=== PATIENT | male | born 1955 | race Caucasian/White ===

== ENCOUNTER 2019-12-14 11:11 | Emergency (ER) | payer MEDICARE, OTHER, SELFPAY ==
--- NOTE | ~2019-12-14 | XR_ITS ---
EXAMINATION: XR foot LT min 3V DATE: 12/14/2019 11:48 INDICATION: Pain, swelling and bruising at the left forefoot post fall down stairs TECHNIQUE: Dorsoplantar, two oblique and lateral views of the left foot were obtained. COMPARISON: None. FINDINGS: Minimally displaced oblique intra-articular fracture at the medial base of the left fifth proximal ph alanx. Alignment remains near-anatomic with no significant fracture gap or incongruity at the articul ar surface. No other fractures identified. Joint spaces are normal. IMPRESSION: 1. Mildly displaced intra-articular fracture at the base of the left fifth proximal phalanx. Reviewed, dictated and finalized at location A. IMPRESSION: 1. Mildly displaced intra-articular fracture at the base of the left fifth prox imal phalanx.
--- NOTE | ~2019-12-14 | XR_ITS ---
EXAMINATION: XR finger 5th LT min 2V DATE: 12/14/2019 12:30 INDICATION: Pain at the fifth proximal interphalangeal joint post injury TECHNIQUE: Dorsal palmar, lateral and 2 oblique views of the left fifth digit were obtained COMPARISON: None FINDINGS: Chronic nonunited and nondisplaced ulnar styloid avulsion fracture. Old healed fracture deformity at the visualized portion of the distal left radius. Likely secondary mild ulnar positive variance. Alig nment is otherwise normal. No acute fracture. Mild polyarticular osteoarthritis at the wrist and fift h proximal and distal interphalangeal joints. Soft tissues are unremarkable. IMPRESSION: 1. No acute osseous abnormality. Reviewed, dictated and finalized at location A.
[2019-12-14 11:12] VITALS: BP 143/75; PULSE 70; RESP 14; TEMP 37.1; O2SAT 97
--- NOTE | 2019-12-14 12:39 | ED.LOWEXIN ---
HPI - Extremity Injury (Lower) General Chief Complaint: Extremity Injury, Lower <Rima Wilkes PA-C - Last Filed: 12/14/19 13:13> Stated Complaint: left foot injury <BIRGIT Cox Last Filed: 12/14/19 13:13> Time Seen by Provider: 12/14/19 11:56 <Rima Wilkes PA-C - Last Filed: 12/14/19 13:13> Source: patient <BIRGIT Cox Last Filed: 12/14/19 13:13> Mode of arrival: ambulatory <BIRGIT Cox Last Filed: 12/14/19 13:13> Limitations: no limitations <BIRGIT Cox Last Filed: 12/14/19 13:13> History of Present Illness HPI Narrative: This is a 64-year-old male that presents to the emergency department after a fall down steps 2 days ago. Reports he tripped and fell down about 5 steps. Reports he did hit his head, denies any loss of consciousness. Reports since he has had pain in the left foot. Also reports pain in the left fifth finger. Denies vision changes, vomiting, numbness, or weakness. <Rima Wilkes PA-C - Last Filed: 12/14/19 13:13> Related Data Home Medications: Home Medications Medication Instructions Recorded Confirmed albuterol sulfate 2.5 mg INHALATION Q4-6H PRN 04/04/19 07/01/19 albuterol sulfate 90 mcg/actuation 2 puff INHALATION Q4H PRN gm 04/04/19 07/01/19 aerosol inhaler diltiazem HCl 240 mg capsule,24 240 mg PO DAILY 04/04/19 07/01/19 hr,extended release flecainide 100 mg tablet 100 mg PO Q12H 04/04/19 07/01/19 rivaroxaban 20 mg tablet 20 mg PO DAILY 04/04/19 07/01/19 <BIRGIT Cox Last Filed: 12/14/19 13:13> Allergies/Adverse Reactions: Allergies Allergy/AdvReac Type Severity Reaction Status Date / Time Penicillins Allergy Unknown Unknown Verified 12/14/19 11:33 phenytoin Allergy Unknown Unknown Verified 12/14/19 11:33 HYDROMORPHONE HCL Allergy Intermediate HIVES, Uncoded 12/14/19 11:33 ITCHING, SWELLING HORSERADISH Allergy Mild Unknown Uncoded 12/14/19 11:33 <Rima Wilkes PA-C - Last Filed: 12/14/19 13:13> Review of Systems Review of Systems: Narrative: CONSTITUTIONAL: Denies fever EYES: Denies visual changes GASTROINTESTINAL: Denies vomiting MUSCULOSKELETAL: Reports joint pain and myalgia. Denies back pain NEUROLOGIC: Denies headache, numbness, or weakness. <Rima Wilkes PA-C - Last Filed: 12/14/19 13:13> All systems reviewed & are unremarkable except as noted in HPI and below <Rima Wilkes PA-C - Last Filed: 12/14/19 13:13> [facility] Social History Social History: Social History Smoking packs per day: 1 Smoking cigarettes per day: 20.0 Smoking status: Current every day smoker Smoking end date: 04/17/98 Alcohol intake: never Gender identity (if verbalized by the patient): Male <Rima Wilkes PA-C - Last Filed: 12/14/19 13:13> Exam Narrative: Exam Narrative: GENERAL: Well-appearing, well-nourished, and in no acute distress. HEAD: Normocephalic, atraumatic. EYES: PERRLA and EOMI. ENT: Nares clear, no rhinorrhea or epistaxis. Mucous membranes moist. Oropharynx without tonsillar hypertrophy exudate or other lesions. Bilateral TMs pearly alfaro non-bulging NECK: Supple. No adenopathy or masses. No midline cervical spine tenderness CHEST: Clear to auscultation. No respiratory distress. No wheezes rales or rhonchi HEART: Regular rate and rhythm. No murmur heard. Normal peripheral pulses. BACK: No midline thoracic or lumbar spine tenderness EXTREMITIES: Normal range of motion. No obvious deformity. Mild edema to the left foot dorsal surface with mild bruising. Strength equal in bilateral upper extremities (5/5) SKIN: Warm, dry, no rash. NEURO: No focal deficits. Alert and oriented x3. Cranial nerves II through XII grossly intact PSYCH: Normal mood and affect <Rima Wilkes PA-C - Last Filed: 12/14/19 13:13> Course Vital Signs Vital signs: Vital Signs Temp
[2019-12-14 13:20] VITALS: BP 140/88; PULSE 68; RESP 20; O2SAT 100
== END 2019-12-14 13:22 | disposition home or self-care (01) ==
PROVIDERS: Emergency Provider Emergency Medicine; PCP Family Medicine
DX: S92.512A Displaced fracture of proximal phalanx of left lesser toe(s), initial encounter for closed fracture (principal); S09.90XA Unspecified injury of head, initial encounter; Z87.891 Personal history of nicotine dependence; I48.91 Unspecified atrial fibrillation; Z79.01 Long term (current) use of anticoagulants; Z86.73 Personal history of transient ischemic attack (TIA), and cerebral infarction without residual deficits; W10.9XXA Fall (on) (from) unspecified stairs and steps, initial encounter
CPT/HCPCS: 73140; 73630; 99284

== ENCOUNTER 2020-09-28 10:46 | Outpatient (CLI) | payer MEDICARE, OTHER, SELFPAY ==
--- NOTE | ~2020-09-28 | XR_ITS ---
XR lumbar spine 2-3V DATE: 09/28/2020 11:09 INDICATION: Low back pain. No recent injury. History of L1 fracture in 1990 TECHNIQUE: AP, lateral, coned lateral lumbosacral views COMPARISON: 09/03/2009 CT abdomen pelvis FINDINGS: There is mild levoscoliosis of the lumbar spine. Moderate anterior wedge compression fracture deformity of L1, chronic. Severe degenerative disc disease at L4-5, especially on the right. No recent fracture is evident. No spondylolisthesis. The lumbar pedicles are intact. The sacroiliac joints appear normal. Status post cholecystectomy IMPRESSION: Old compression fracture deformity of L1 Severe degenerative disc disease at L4-5 Reviewed, dictated and finalized at location A.
== END 2020-09-28 10:47 | disposition home or self-care (01) ==
PROVIDERS: PCP Family Medicine; Visit Provider Nurse Practitioner Family
DX: M54.5 Low back pain (principal); Z90.49 Acquired absence of other specified parts of digestive tract; M51.36 Other intervertebral disc degeneration, lumbar region
CPT/HCPCS: 72100

== ENCOUNTER 2020-10-02 13:57 | Outpatient (CLI) | payer MEDICARE, OTHER, SELFPAY ==
--- NOTE | ~2020-10-02 | XR_ITS ---
XR elbow RT min 3V DATE: 10/02/2020 14:18 INDICATION: Pain, swelling and posterior erythema since last night TECHNIQUE: 4 views COMPARISON: None FINDINGS: No fracture or dislocation or elbow joint effusion. No periosteal reaction or bone destruct ion. There is dorsal soft tissue swelling of the elbow, possibly due to olecranon bursitis. IMPRESSION: Dorsal soft tissue swelling, possibly due to olecranon bursitis Reviewed, dictated and finalized at location A.
== END 2020-10-02 13:58 | disposition home or self-care (01) ==
PROVIDERS: PCP Family Medicine; Visit Provider Nurse Practitioner Family
DX: M25.521 Pain in right elbow (principal); M79.89 Other specified soft tissue disorders
CPT/HCPCS: 73080

== ENCOUNTER 2020-10-20 15:20 | Outpatient (CLI) | payer MEDICARE, OTHER, SELFPAY ==
--- NOTE | ~2020-10-20 | MR_ITS ---
EXAMINATION: MR lumbar spine wo con DATE: 10/20/2020 16:47 INDICATION: Low back pain. TECHNIQUE: Magnetic resonance imaging (MRI) of the lumbar spine was performed without intravenous con trast. Sequences included sagittal T2-weighted FSE, sagittal T2-weighted FS FSE, sagittal T1-weighted FSE, and axial T2-weighted FSE. COMPARISON: Lumbar spine radiograph 09/28/2020, chest 2 views 04/04/2019 FINDINGS: There is 10 degrees levoscoliosis of lumbar spine. There are hypoplastic ribs at L1. There is a chronic compression fracture of L1 with 3/5 loss of height. There is severely decreased disc hei ght at L4-L5 with endplate remodeling. The distal spinal cord signal intensity is normal. The conus m edullaris is at L2-L3. The following disc levels are specifically discussed: L1-L2: The disc does not extend beyond the endplate margin. There is mild bilateral facet joint osteo arthritis. There is no neural foraminal stenosis. There is no central canal stenosis. L2-L3: The disc is mildly bulging. There is mild bilateral facet joint osteoarthritis. There is mild bilateral neural foraminal stenosis. There is no central canal stenosis. L3-L4: The disc does not extend beyond the endplate margin. There is mild right and moderate left fac et joint osteoarthritis. There is no neural foraminal stenosis. There is no central canal stenosis. L4-L5: The disc is bulging and has an annular fissure. There is severe right and moderate left facet joint osteoarthritis. There is moderate right and mild left neural foraminal stenosis. There is mild central canal stenosis. L5-S1: The disc is bulging. There is moderate bilateral facet joint osteoarthritis. There is mild lef t neural foraminal stenosis. There is no central canal stenosis. IMPRESSION: 1. Severe lumbar spondylosis. 2. Lumbar levoscoliosis. Reviewed, dictated and finalized at location A.
== END 2020-10-20 15:21 | disposition home or self-care (01) ==
PROVIDERS: PCP Family Medicine; Visit Provider Nurse Practitioner Family
DX: M51.16 Intervertebral disc disorders with radiculopathy, lumbar region (principal); Z87.81 Personal history of (healed) traumatic fracture; M47.896 Other spondylosis, lumbar region
CPT/HCPCS: 72148

== ENCOUNTER 2021-05-27 22:19 | Emergency (ER) | payer MEDICARE, OTHER, SELFPAY ==
--- NOTE | ~2021-05-27 | XR_ITS ---
EXAMINATION: XR shoulder LT min 2V DATE: 05/27/2021 23:09 INDICATION: Left shoulder pain. Fall. TECHNIQUE: 2 views of left shoulder were obtained. COMPARISON: None. FINDINGS: Bone alignment is normal. No fracture. The glenohumeral joint is not well profiled. There i s severe acromioclavicular joint osteoarthritis. IMPRESSION: 1. Severe left acromioclavicular joint osteoarthritis. Reviewed, dictated and finalized at location E. RT EXPORT CLERK
--- NOTE | ~2021-05-27 | XR_ITS ---
EXAMINATION: XR humerus LT DATE: 05/27/2021 23:09 INDICATION: Left upper arm pain. TECHNIQUE: A single view of left humerus on 2 radiographs were obtained. COMPARISON: Chest CT 05/27/2021 FINDINGS: Bone alignment is normal. No fracture. IMPRESSION: 1. No fracture. Reviewed, dictated and finalized at location E. ERONE IMPRESSION: 1. No fracture.
--- NOTE | ~2021-05-27 | XR_ITS ---
EXAMINATION: XR chest 1V portable DATE: 05/27/2021 22:44 INDICATION: Shortness of breath. TECHNIQUE: A single frontal view of the chest was obtained on 2 radiographs. COMPARISON: Chest 2 views 04/04/2019, CT abdomen and pelvis 07/15/2010 FINDINGS: There are lucencies in the lungs, consistent with emphysema. There is mild atelectasis at t he lung bases. No pleural effusion or pneumothorax. The heart size is normal. IMPRESSION: 1. Emphysema. 2. Mild atelectasis at the lung bases. Reviewed, dictated and finalized at location E. NICAL AID
--- NOTE | ~2021-05-27 | CT_ITS ---
EXAMINATION: CTA chest abdomen pelvis DATE: 05/27/2021 22:58 INDICATION: Chest and abdominal injury. TECHNIQUE: Computed tomography angiography (CTA) of the chest, abdomen, and pelvis was performed with 100 mL Omnipaque 350 intravenous contrast. 3D-reconstructions of the aorta and other arteries were c onstructed by the technologist on a separate workstation. Automated exposure control and iterative re construction technique were employed. The dose-length product was 1257.56 mGy-cm. COMPARISON: CT abdomen and pelvis 07/15/2010 FINDINGS: CHEST CTA: There is severe emphysema. There is mild atelectasis in the lungs. No pleural effusion. No pleural ef fusion. There is right atrial and right ventricular enlargement of the heart. No pericardial effusion . There is mild aortic atherosclerosis. No aneurysm or dissection. There is bilateral gynecomastia. T here are fracture deformities of the left seventh and eighth ribs. There is old compression fracture of T11. ABDOMEN/PELVIS CTA: There is diffuse hepatic steatosis. There are changes of cholecystectomy. The spleen, pancreas, adren al glands, and left kidney are normal. There is an 8 mm cyst in right kidney. The prostate is mildly enlarged. There is prominent fat in the inguinal canals that may be hernias. There is diverticulosis of the colon without evidence of diverticulitis. There are no dilated loops of bowel. The appendix is not visualized. There are no pathologically enlarged lymph nodes. There is aortic atherosclerosis. N o aneurysm or dissection. There is no significant stenosis of celiac axis. There is mild stenosis of superior mesenteric artery. There is no significant stenosis of the 2 right renal arteries, single le ft renal artery, or inferior mesenteric artery. There is no free intraperitoneal fluid. There is an old compression fracture of L1. There is severe lumbar spondylosis. There are chronic bilateral L4 pa rs defects. There is 3 mm anterolisthesis of L4 on L5. IMPRESSION: 1. Severe emphysema. 2. Age indeterminant fracture deformities of left seventh and eighth ribs. 3. Aortic atherosclerosis. No aneurysm or dissection. INE FANCY STITCHER Reviewed, dictated and finalized at location E.
--- NOTE | ~2021-05-27 | CT_ITS ---
EXAMINATION: CT cervical spine wo con DATE: 05/27/2021 22:57 INDICATION: Neck injury. TECHNIQUE: Computed tomography (CT) of the cervical spine was performed without intravenous contrast. Automated exposure control and iterative reconstruction technique were employed. The dose-length pro duct was 428.22 mGy-cm. COMPARISON: CT cervical spine 02/17/2017 FINDINGS: The visualized portions of the lung apices demonstrate emphysema. There is 7 degrees dextro curvature of cervicothoracic spine. Vertebral body heights and intervertebral disc heights are normal . The following disc levels are specifically discussed: C2-C3: There is no uncovertebral joint osteoarthritis. There is mild bilateral facet joint osteoarthr itis. There is no neural foraminal stenosis. There is no central canal stenosis. C3-C4: There is mild bilateral uncovertebral joint osteoarthritis. There is no facet joint osteoarthr itis. There is no neural foraminal stenosis. There is no central canal stenosis. C4-C5: There is mild right and moderate left uncovertebral joint osteoarthritis. There is moderate ri ght and mild left facet joint osteoarthritis. There is no neural foraminal stenosis. There is no cent ral canal stenosis. C5-C6: There is no uncovertebral joint osteoarthritis. There is mild bilateral facet joint osteoarthr itis. There is no neural foraminal stenosis. There is no central canal stenosis. C6-C7: There is no uncovertebral joint osteoarthritis. There is mild right and moderate left facet jonny int osteoarthritis. There is no neural foraminal stenosis. There is mild central canal stenosis. C7-T1: There is no uncovertebral joint osteoarthritis. There is mild bilateral facet joint osteoarthr itis. There is no neural foraminal stenosis. There is no central canal stenosis. IMPRESSION: 1. No fracture. 2. Mild cervical spondylosis. Reviewed, dictated and finalized at location E. ER NANNY
--- NOTE | ~2021-05-27 | CT_ITS ---
EXAMINATION: CT brain wo con DATE: 05/27/2021 22:58 INDICATION: Head injury. TECHNIQUE: Computed tomography (CT) of the head was performed without intravenous contrast. The mA wa s adjusted according to patient size. Iterative reconstruction technique was employed. The dose-lengt h product was 681.00 mGy-cm. COMPARISON: Head CT 02/17/2017 FINDINGS: There are scattered areas of low attenuation in the cerebral white matter, which is within normal limits for the patient's age. There is no intracranial hemorrhage, acute infarction, or abnorm al intracranial mass lesion. The ventricles are normal in size. The orbits are normal. There is mild mucosal thickening in the paranasal sinuses. The mastoid air cells are normal. IMPRESSION: 1. Normal aging brain. Reviewed, dictated and finalized at location E. GEMENT AND BUDGET ANALYST IMPRESSION: 1. Normal aging brain.
[2021-05-27 22:25] VITALS: BP 123/90; PULSE 123; RESP 29; TEMP 36.7; O2SAT 98
[2021-05-27 22:51] LABS: Basophils Absolute Auto 0.1 K/mm3 (0.0-0.1); Basophils Percent Auto 0.6 % (0.2-1.2); Eosinophils Absolute Auto 0.1 K/mm3 (0-0.3); Eosinophils Percent Auto 1.3 % (0-4.4); Hematocrit 48.7 % (42.0-52.0); Hemoglobin 16.3 g/dL (14.0-18.0); Immature Granulocyte Absolute 0.13 K/mm3 (0.00-0.031); Immature Granulocyte Percent A 1.4 % (0-0.5); Lymphocytes Absolute Auto 1.84 K/mm3 (0.9-3.2); Lymphocytes Percent Auto 20.3 % (18.3-44.2); Mean Corpuscular HGB Conc 33.5 g/dl (32-36); Mean Corpuscular Volume 95.5 fl (80-100); Mean Platelet Volume 9.8 fl (7.4-10.4); Monocytes Absolute Auto 0.8 K/mm3 (0.1-0.6); Monocytes Percent Auto 9.1 % (2.6-8.5); Neutrophils Absolute Auto 6.1 K/mm3 (1.3-6.7); Neutrophils Percent Auto 67.3 % (45.5-73.1); Platelet Count Result 203 k/mm3 (150-375); Red Cell Distribution Width 11.5 % (11.5-14.5); White Blood Count 9.1 K/mm3 (4.5-10.0)
[2021-05-27 23:00] LABS: INR 1.2; Partial Thromboplastin Time 27.6 SECONDS (22.3-36.8); Prothrombin Time 15.2 Seconds (11.1-14.7)
[2021-05-27 23:07] LABS: Alanine Aminotransferase 34 U/L (4-50); Albumin Level 4.2 g/dL (3.5-5.1); Alkaline Phosphatase 97 U/L (38-126); Anion Gap 8 mmol/L (8-16); Aspartate Amino Transferase 29 U/L (17-59); Bilirubin,Total 0.4 mg/dL (0.2-1.3); Blood Urea Nitrogen 21 mg/dL (9-20); Calcium 8.6 mg/dL (8.4-10.2); Carbon Dioxide 26 mmol/L (22-30); Chloride 98 mmol/L (98-107); Estimated Glomerular Filt Rate 55; Glucose 323 mg/dL (65-110); Potassium 4.3 mmol/L (3.4-5.0); Sodium 132 mmol/L (137-145)
[2021-05-27 23:17] LABS: Troponin I < 0.012 ng/mL (0.000-0.034)
[2021-05-28] VITALS (9 sets, daily range): BP systolic 117–122; BP diastolic 83–104; PULSE 122–133; RESP 14–19; O2SAT 92–96
[2021-05-28] MEDS: fentaNYL CITRATE INJ (*CRX) 100 MCG/2 ML VIAL 50 MCG IV PUSH (00:32)
[2021-05-28] MEDS: dilTIAZem HCl INJ 25 MG/5 ML VIAL 10 MG IV PUSH ×2 (02:20→02:55)
[2021-05-28] MEDS: MORPHINE SULFATE (*CRX) 4 MG/ML INJ IV PUSH ×2 (02:22→04:03)
--- NOTE | 2021-05-28 02:39 | ECG_ITS ---
Measurements Intervals [place] Rate: 133 P: DE: 0 QRS: 250 QRSD: 158 T: -4 QT: 340 QTc: 507 Interpretive Statements ATRIAL FLUTTER/TACHYCARDIA WITH RAPID VENTRICULAR RESPONSE RIGHT BUNDLE BRANCH BLOCK LEFT POSTERIOR FASCICULAR BLOCK BASELINE ARTIFACT- III ABNORMAL ECG Electronically Signed On 05-28-2021 6:29:54 MACHINE SHOP SPECIALIST by Cheng Rodriguez D.O.
[2021-05-28] MEDS: SODIUM CHLORIDE 0.9% IV 500 ML 999 ML IV CONT (02:57)
--- NOTE | 2021-05-28 03:23 | ED.HEATRA ---
HPI - Head Injury General Chief complaint: Trauma Stated complaint: fall Time Seen by Provider: 05/28/21 01:20 Source: patient History of Present Illness HPI Narrative: Patient presents after a fall. Patient reports he was going down the steps when he slipped fell down several steps hit a landing and then fell down 2 more steps. He does report hitting his head denies any loss of consciousness. Reports his primary areas of pain on his left elbow left shoulder and left lower chest. Pain is sharp, constant, worse with using the respective extremity as well as deep inhalation. Reports he is on blood thinners for A. fib. He denies any focal numbness or weakness he denies a prodrome prior to his fall such as chest pain shortness of breath or lightheadedness. Ports he been feeling well the past couple days no recent fevers, cough, congestion. Related Data Home Medications Medication Instructions Recorded Confirmed diltiazem HCl 240 mg capsule,24 240 mg PO DAILY 04/04/19 09/28/20 hr,extended release flecainide 100 mg tablet 100 mg PO Q12H 04/04/19 09/28/20 rivaroxaban 20 mg tablet 20 mg PO DAILY 04/04/19 09/28/20 Allergies Allergy/AdvReac Type Severity Reaction Status Date / Time Penicillins Allergy Unknown Unknown Verified 10/02/20 13:21 phenytoin Allergy Unknown Unknown Verified 10/02/20 13:21 HYDROMORPHONE HCL Allergy Intermediate HIVES, Uncoded 10/02/20 13:21 ITCHING, SWELLING HORSERADISH Allergy Mild Unknown Uncoded 10/02/20 13:21 Review of Systems Review of Systems: CONSTITUTIONAL: Denies fever, chills, or sweats. EYES: Denies visual changes, redness, or discharge. ENT: Denies rhinorrhea, congestion, sore throat, or otalgia. CARDIOVASCULAR: Denies chest pain, palpitations, or edema. RESPIRATORY: Denies cough GASTROINTESTINAL: Denies abdominal pain, nausea, vomiting, or diarrhea. GENITOURINARY: Denies dysuria or hematuria. SKIN: Denies rash or itching. MUSCULOSKELETAL: Denies back pain, or myalgia. NEUROLOGIC: Denies headache, numbness, dizziness, or weakness. PSYCHIATRIC: Denies anxiety or depression. All systems reviewed & are unremarkable except as noted in HPI and below [facility] Past Medical History Medical History Abnormal MRI, lumbar spine Atrial fibrillation BMI 27.0-27.9,adult TIA (transient ischemic attack) Family History Family History Mother Family history of diabetes mellitus in first degree relative Family history of chronic obstructive pulmonary disease, Onset Age: 83 COPD (chronic obstructive pulmonary disease) Sibling Family history of diabetes mellitus in first degree relative Cerebrovascular accident Father Family history of coronary artery disease Family history of congestive heart failure, Onset Age: 43 COPD (chronic obstructive pulmonary disease) Social History Social History Smoking packs per day: 1 Smoking cigarettes per day: 20.0 Second hand tobacco smoke exposure: Yes Smoking end date: 04/17/98 Alcohol intake: never Substance use: never Substance use type: does not use 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 HEAD: Normocephalic, atraumatic. EYES: PERRLA and EOMI. ENT: Nares clear, no rhinorrhea or epistaxis. Mucous membranes moist. NECK: Supple. No masses. No JVD CHEST: Clear to auscultation. No respiratory distress. No wheezes rales or rhonchi HEART: Regular tachycardia. No murmur heard. Normal peripheral pulses. ABDOMEN: Soft, nontender, nondistended, normal active bowel sounds. EXTREMITIES: Limited range of motion of the left shoulder and elbow due to pain there were no obvious deformities no o
[2021-05-28] MEDS: FLECAINIDE ACETATE 100 MG TABLET PO (03:30)
[2021-05-28] MEDS: dilTIAZem 100 MG/100 ML 100 MG/100 ML BAG IV CONT (03:53)
[2021-05-28 04:36] LABS: Mucus Urine Rare /lpf; RBC Urine 0-2 /hpf (0-2); WBC Urine 0-3 /hpf
[2021-05-28 05:02] LABS: Appearance Urine Clear (Clear); Bilirubin Urine Negative (Negative); Blood Urine Negative (Negative); Color Urine Yellow (Yellow); Glucose Urine UA 3+ mg/dL (Negative); Ketones Urine Negative (Negative); Leukocyte Esterase Ur Negative LEU/UL (Negative); Nitrate Urine Negative (Negative); Protein Urine Negative (Negative); Specific Grav Ur 1.015 (1.001-1.035); Urobilinogen Urine 0.2 mg/dL (<2.0); pH Urine 6.5 (5.0-9.0)
[2021-05-28 05:03] LABS: Add Urine Microscopic? YES
[2021-05-28 05:15] LABS: SARS-CoV-2 RNA PCR Negative
--- NOTE | 2021-05-28 05:18 | PC.NURSE ---
VORB received from EDP to increase diltiazem to 10mg
--- NOTE | 2021-05-28 06:52 | PC.NURSE ---
VORB received from EDP to increase diltiazem to 15. VSS.
[2021-05-28 11:07] LABS: Estimated CRCL calculation 53 ml/min; Estimated Glomerular Filt Rate 60
== END 2021-05-28 07:34 | disposition short-term general hospital (02) ==
PROVIDERS: Emergency Provider Emergency Medicine; PCP Family Medicine
DX: S09.90XA Unspecified injury of head, initial encounter (principal); M25.522 Pain in left elbow; M25.512 Pain in left shoulder; R07.9 Chest pain, unspecified; I48.91 Unspecified atrial fibrillation; Z20.822 Contact with and (suspected) exposure to COVID-19; Z86.73 Personal history of transient ischemic attack (TIA), and cerebral infarction without residual deficits; Z87.891 Personal history of nicotine dependence; Z77.22 Contact with and (suspected) exposure to environmental tobacco smoke (acute) (chronic); J43.9 Emphysema, unspecified; Z79.01 Long term (current) use of anticoagulants; M47.812 Spondylosis without myelopathy or radiculopathy, cervical region; I70.0 Atherosclerosis of aorta; M19.012 Primary osteoarthritis, left shoulder; I45.2 Bifascicular block; W10.9XXA Fall (on) (from) unspecified stairs and steps, initial encounter
CPT/HCPCS: 36415; 70450; 71045; 71275; 72125; 73030; 73060; 74174; 80053; 81001; 82565; 84484; 85025; 85610; 85730; 86850; 86900; 86901; 93005; 96365; 96375; 96376; 99285; A9270; C9803; J2270; J3010; J7040; L0140; Q9967; U0003; U0005

== ENCOUNTER 2021-06-02 11:47 | Outpatient (CLI) | payer MEDICARE, OTHER, SELFPAY ==
--- NOTE | ~2021-06-02 | XR_ITS ---
XR chest 2V DATE: 06/02/2021 12:04 INDICATION: Cough TECHNIQUE: PA and lateral views COMPARISON: May 27, 2021 CTA chest abdomen pelvis 05/27/2021 portable AP chest 04/04/2019 2 view chest FINDINGS: There is mild bibasilar atelectasis. The lungs are moderately hyperinflated consistent with COPD demonstrated on May 27, 2021 CTA chest. Heart size is within normal range. There is aortic arch calcification. No hilar or mediastinal enlarg ement. Chronic compression fracture deformity of T11. IMPRESSION: Bibasilar atelectasis Emphysema Aortic atherosclerosis Reviewed, dictated and finalized at location B. ER BEAD OPERATOR
== END 2021-06-02 11:48 | disposition home or self-care (01) ==
LOC: ANHIMG 11:51
PROVIDERS: PCP Family Medicine; Visit Provider Nurse Practitioner Family
DX: R05.9 Cough, unspecified (principal); I70.0 Atherosclerosis of aorta; J98.11 Atelectasis; J43.9 Emphysema, unspecified
CPT/HCPCS: 71046

== ENCOUNTER → 2021-08-27 01:52 | Outpatient (CLI) | payer MEDICARE, OTHER, SELFPAY ==
[2021-08-27 16:02] LABS: SARS-CoV-2 RNA PCR Negative
== END ==
PROVIDERS: PCP Nurse Practitioner Family; Visit Provider Nurse Practitioner Family
DX: R09.89 Other specified symptoms and signs involving the circulatory and respiratory systems (principal); Z20.822 Contact with and (suspected) exposure to COVID-19
CPT/HCPCS: C9803; U0003; U0005

== ENCOUNTER 2021-08-30 13:04 | Emergency (ER) | payer MEDICARE, OTHER, SELFPAY ==
[2021-08-30] VITALS (24 sets, daily range): BP systolic 118–152; BP diastolic 66–81; PULSE 62–97; RESP 8–25; TEMP 36.5–36.8; O2SAT 93–100
--- NOTE | ~2021-08-30 | XR_ITS ---
EXAMINATION: XR chest 2V DATE: 08/30/2021 13:54 INDICATION: Shortness of breath. TECHNIQUE: Frontal and lateral views of the chest were obtained. COMPARISON: Chest 2 views 06/02/21, chest CT 05/27/2021 FINDINGS: The lungs are hyperexpanded, consistent with emphysema. No pleural effusion or pneumothorax . The heart size is normal. There are surgical clips in the abdomen. IMPRESSION: 1. Emphysema. Reviewed, dictated and finalized at location B. IMPRESSION: 1. Emphysema.
--- NOTE | 2021-08-30 13:35 | ECG_ITS ---
Measurements Intervals [place] Rate: 74 P: 83 DE: 170 QRS: 58 QRSD: 138 T: 51 QT: 402 QTc: 447 Interpretive Statements SINUS RHYTHM RIGHT BUNDLE BRANCH BLOCK ABNORMAL ECG Electronically Signed On 08-30-2021 13:56:21 CDT by Cheng Rodriguez D.O.
[2021-08-30 13:54] LABS: Basophils Percent Auto 0.4 % (0.2-1.2); Eosinophils Absolute Auto 0.1 K/mm3 (0-0.3); Eosinophils Percent Auto 2.1 % (0-4.4); Hematocrit 47.1 % (42.0-52.0); Hemoglobin 15.8 g/dL (14.0-18.0); Immature Granulocyte Absolute 0.06 K/mm3 (0.00-0.031); Immature Granulocyte Percent A 1.1 % (0-0.5); Mean Corpuscular HGB Conc 33.5 g/dl (32-36); Mean Corpuscular Hemoglobin 31.2 pg (26-34); Mean Corpuscular Volume 92.9 fl (80-100); Mean Platelet Volume 9.5 fl (7.4-10.4); Monocytes Absolute Auto 0.5 K/mm3 (0.1-0.6); Monocytes Percent Auto 9.7 % (2.6-8.5); Neutrophils Absolute Auto 3.5 K/mm3 (1.3-6.7); Neutrophils Percent Auto 61.7 % (45.5-73.1); Platelet Count Result 215 k/mm3 (150-375); Red Blood Count 5.07 M/mm3 (4.6-6.20); Red Cell Distribution Width 11.7 % (11.5-14.5); White Blood Count 5.6 K/mm3 (4.5-10.0)
[2021-08-30 14:04] LABS: Alanine Aminotransferase 40 U/L (6-50); Albumin Level 4.3 g/dL (3.5-5.1); Alkaline Phosphatase 138 U/L (38-126); Anion Gap 5 mmol/L (8-16); Aspartate Amino Transferase 34 U/L (17-59); Bilirubin,Total 0.3 mg/dL (0.2-1.3); Blood Urea Nitrogen 14 mg/dL (9-20); Calcium 8.9 mg/dL (8.4-10.2); Carbon Dioxide 31 mmol/L (22-30); Chloride 100 mmol/L (98-107); Estimated CRCL calculation 77 ml/min; Estimated Glomerular Filt Rate > 60; Glucose 167 mg/dL (65-110); Potassium 4.4 mmol/L (3.4-5.0); Sodium 136 mmol/L (137-145)
[2021-08-30 14:13] LABS: INR 1.8; Partial Thromboplastin Time 33.5 SECONDS (22.3-36.8); Prothrombin Time 20.2 Seconds (11.1-14.7)
[2021-08-30] MEDS: ALBUTEROL SULFATE NEB 2.5 MG/3 ML INH 15 MG INHALATION ×3 (17:24→17:54)
[2021-08-30] MEDS: IPRATROPIUM BR 0.02% INH SOLN 0.5 MG/2.5 ML VIAL 1.5 MG INHALATION (17:24)
[2021-08-30] MEDS: methylPREDNISolone SOD SUCC 125 MG VIAL IV PUSH (17:24)
[2021-08-30 17:33] LABS: Base Excess ABG -1.2 mEq/l (+/-2.0); Fractional Inspired Oxygen 21 %; HCO3 ABG 22.3 mEq/l (22.0-26.0); Modified Allen's Test Pass; Oxygen Content ABG 19.3 %vol (16.0-22.0); Oxygen Saturation ABG 93.5 % (95.0-100.0); Oxyhemoglobin 91.6 % THb (90.0-100.0); PCO2 ABG 34.1 mmHg (35.0-45.0); PO2 ABG 64.9 mmHg (80.0-100.0); PO2 FiO2 Ratio Arterial Blood 3.09 %; Site Drawn RIGHT RADIAL; pH ABG 7.433 (7.350-7.450)
[2021-08-30 17:34] LABS: Device ROOM AIR
--- NOTE | 2021-08-30 19:56 | ED.URI ---
HPI - URI/Sore Throat General Chief Complaint: Upper Respiratory Infection Stated Complaint: COVID+ AUGUST 20 NOW NEGATIVE AND STILL SOB Time Seen by Provider: 08/30/21 16:52 Source: patient History of Present Illness HPI Narrative: Patient presents with shortness of breath. Reports he was diagnosed with COVID approximately 10 days ago took antiviral therapy as well as azithromycin started to feel better however his shortness of breath has continued. Ports he gets real short of breath with walking around so came to the ER for further evaluation. Ports his fevers resolved he continues to have a cough. He also reports a history of COPD but his shortness of breath and cough are worse his baseline. Denies any focal areas of chest pain, abdominal pain, nausea, vomiting, diarrhea. Related Data Home Medications Medication Instructions Recorded Confirmed diltiazem HCl 240 mg capsule,24 240 mg PO DAILY 04/04/19 07/14/21 hr,extended release flecainide 100 mg tablet 100 mg PO Q12H 04/04/19 07/14/21 rivaroxaban 20 mg tablet 20 mg PO DAILY 04/04/19 07/14/21 Allergies Allergy/AdvReac Type Severity Reaction Status Date / Time Penicillins Allergy Unknown Unknown Verified 07/14/21 08:25 phenytoin Allergy Unknown Unknown Verified 07/14/21 08:25 HYDROMORPHONE HCL Allergy Intermediate HIVES, Uncoded 07/14/21 08:25 ITCHING, SWELLING HORSERADISH Allergy Mild Unknown Uncoded 07/14/21 08:25 Review of Systems Review of Systems: CONSTITUTIONAL: Denies fever, chills, or sweats. EYES: Denies visual changes, redness, or discharge. ENT: Denies rhinorrhea, congestion, sore throat, or otalgia. CARDIOVASCULAR: Denies chest pain, palpitations, or edema. RESPIRATORY: Reports cough and shortness of breath. GASTROINTESTINAL: Denies abdominal pain, nausea, vomiting, or diarrhea. GENITOURINARY: Denies dysuria or hematuria. SKIN: Denies rash or itching. MUSCULOSKELETAL: Denies back pain, joint pain, or myalgia. NEUROLOGIC: Denies headache, numbness, dizziness, or weakness. PSYCHIATRIC: Denies anxiety or depression. All systems reviewed & are unremarkable except as noted in HPI and below PMFSH Past Medical History Medical History Abnormal MRI, lumbar spine Atrial fibrillation BMI 26.0-26.9,adult BMI 27.0-27.9,adult COPD (chronic obstructive pulmonary disease) Essential (primary) hypertension Mixed hyperlipidemia TIA (transient ischemic attack) Tobacco abuse Family History Family History Mother Family history of diabetes mellitus in first degree relative Family history of chronic obstructive pulmonary disease, Onset Age: 83 COPD (chronic obstructive pulmonary disease) Sibling Family history of diabetes mellitus in first degree relative Cerebrovascular accident Father Family history of coronary artery disease Family history of congestive heart failure, Onset Age: 43 COPD (chronic obstructive pulmonary disease) Social History Social History Social History: Patient did not give a specific number of years he has smoked Smoking packs per day: 1 Smoking cigarettes per day: 20.0 Second hand tobacco smoke exposure: Yes Smoking end date: 04/17/98 Alcohol intake: never Substance use: never Substance use type: does not use 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 HEAD: Normocephalic, atraumatic. EYES: PERRLA and EOMI. ENT: Nares clear, no rhinorrhea or epistaxis. Mucous membranes moist. NECK: Supple. No masses. No JVD CHEST: Diminished aeration in all lung johnson with rhonchi and wheezing HEART: Regular rate and rhythm. No murmur heard. Normal peripheral pulses. ABDO
== END 2021-08-30 20:08 | disposition home or self-care (01) ==
PROVIDERS: Emergency Medicine; Emergency Provider Emergency Medicine; PCP Nurse Practitioner Family
DX: R06.00 Dyspnea, unspecified (principal); I48.91 Unspecified atrial fibrillation; J43.9 Emphysema, unspecified; I10 Essential (primary) hypertension; E78.2 Mixed hyperlipidemia; Z86.73 Personal history of transient ischemic attack (TIA), and cerebral infarction without residual deficits; Z87.891 Personal history of nicotine dependence; Z86.16 Personal history of COVID-19; Z79.01 Long term (current) use of anticoagulants; I45.10 Unspecified right bundle-branch block
CPT/HCPCS: 36415; 36600; 71046; 80053; 82805; 85025; 85610; 85730; 93005; 94640; 96374; 99284; J2930

== ENCOUNTER 2021-08-31 14:21 | Outpatient (CLI) | payer MEDICARE, OTHER, SELFPAY ==
[2021-08-31 14:53] LABS: D Dimer < 0.27 ug/mL (<0.48)
== END 2021-08-31 14:22 | disposition home or self-care (01) ==
LOC: ANHLAB 14:24
PROVIDERS: PCP Nurse Practitioner Family; Visit Provider Nurse Practitioner Family
DX: R06.02 Shortness of breath (principal)
CPT/HCPCS: 36415; 85380

== ENCOUNTER 2021-12-28 14:04 | Outpatient (CLI) | payer MEDICARE, OTHER, SELFPAY ==
--- NOTE | ~2021-12-28 | XR_ITS ---
EXAMINATION: XR chest 2V Exam Date/Time: 12/28/2021 14:15 CDT HISTORY: R05.3 - COUGH X 1MONTH, HX COPD Comparison: 08/30/2021. RESULT: Lines, tubes, and devices: None. Lungs and pleura: Emphysematous change. Bilateral linear scar/atelectasis. Cardiomediastinal silhouette: Stable. Other: No acute osseous or upper abdominal finding. IMPRESSION: No acute cardiopulmonary process. Reviewed, dictated and finalized at location K.
[2021-12-28 14:46] LABS: Basophils Percent Auto 0.3 % (0.2-1.2); Eosinophils Absolute Auto 0.3 K/mm3 (0-0.3); Eosinophils Percent Auto 4.1 % (0-4.4); Hematocrit 46.8 % (42.0-52.0); Hemoglobin 15.5 g/dL (14.0-18.0); Immature Granulocyte Absolute 0.03 K/mm3 (0.00-0.031); Immature Granulocyte Percent A 0.5 % (0-0.5); Lymphocytes Absolute Auto 1.67 K/mm3 (0.9-3.2); Lymphocytes Percent Auto 27.3 % (18.3-44.2); Mean Corpuscular HGB Conc 33.1 g/dl (32-36); Mean Corpuscular Hemoglobin 31.4 pg (26-34); Mean Corpuscular Volume 94.7 fl (80-100); Mean Platelet Volume 9.9 fl (7.4-10.4); Monocytes Absolute Auto 0.7 K/mm3 (0.1-0.6); Monocytes Percent Auto 10.9 % (2.6-8.5); Neutrophils Absolute Auto 3.5 K/mm3 (1.3-6.7); Neutrophils Percent Auto 56.9 % (45.5-73.1); Platelet Count Result 164 k/mm3 (150-375); Red Blood Count 4.94 M/mm3 (4.6-6.20); Red Cell Distribution Width 12.3 % (11.5-14.5); White Blood Count 6.1 K/mm3 (4.5-10.0)
[2021-12-28 15:21] LABS: Vitamin D 25 Hydroxy 30.6 ng/mL
== END 2021-12-28 14:05 | disposition home or self-care (01) ==
PROVIDERS: PCP Family Medicine; Visit Provider Nurse Practitioner Family
DX: R05.3 Chronic cough (principal); I10 Essential (primary) hypertension; Z13.29 Encounter for screening for other suspected endocrine disorder; E55.9 Vitamin D deficiency, unspecified; E53.8 Deficiency of other specified B group vitamins; J44.9 Chronic obstructive pulmonary disease, unspecified
CPT/HCPCS: 36415; 71046; 82306; 82607; 84443; 85025

== ENCOUNTER 2022-02-06 10:37 | Inpatient (IN) | payer MEDICARE, OTHER, SELFPAY ==
[2022-02-06] VITALS (40 sets, daily range): BP systolic 82–135; BP diastolic 60–89; PULSE 61–131; RESP 15–24; TEMP 36.1–36.8; O2SAT 93–100; BMI 26.6
--- NOTE | ~2022-02-06 | XR_ITS ---
EXAMINATION: XR chest 2V DATE: 02/06/2022 11:24 INDICATION: Palpitations TECHNIQUE: PA and lateral views of the chest were obtained. COMPARISON: Chest radiograph dated 12/28/[address] dated 05/27/2021 FINDINGS: Hyperexpansion of lungs with flattening of the diaphragm and increased lucency and architectural dist ortion in the bilateral upper lung zones consistent with emphysema. Linear opacities consistent with discoid atelectasis/scarring in the right upper and bilateral lower lung zones. No other airspace opa cities, pulmonary edema, pleural effusion or pneumothorax. The cardiomediastinal silhouette is normal . Cholecystectomy clips in right upper quadrant. Mild thoracic spondylosis. Chronic compression fract ures at T10 and T12. IMPRESSION: 1. Emphysema with mild linear discoid atelectasis/scarring in the right upper and bilateral lower toni g zones. Reviewed, dictated and finalized at location A. IMPRESSION: 1. Emphysema with mild linear discoid atelectasis/scarring in the right upper a nd bilateral lower lung zones.
--- NOTE | 2022-02-06 10:40 | ECG_ITS ---
Measurements Intervals [place] Rate: 120 P: [place]: 0 QRS: 215 QRSD: 162 T: -35 QT: 366 QTc: 518 Interpretive Statements ATRIAL FLUTTER/TACHYCARDIA WITH RAPID VENTRICULAR RESPONSE MARKED RIGHT AXIS DEVIATION [QRS AXIS > 100] RIGHT BUNDLE BRANCH BLOCK [120+ ms QRS DURATION, UPRIGHT V1, 40+ ms S IN I/aVL/V4/V5/V6] COMPARED TO ECG 08/30/2021 13:41:09 ATRIAL FLUTTER NOW PRESENT Electronically Signed On 02-06-2022 19:46:57 CDT by Xochilt Whalen M.D.
[2022-02-06 10:59] LABS: Basophils Percent Auto 0.4 % (0.2-1.2); Eosinophils Absolute Auto 0.2 K/mm3 (0-0.3); Eosinophils Percent Auto 2.5 % (0-4.4); Hematocrit 51.5 % (42.0-52.0); Hemoglobin 17.1 g/dL (14.0-18.0); Immature Granulocyte Absolute 0.03 K/mm3 (0.00-0.031); Immature Granulocyte Percent A 0.4 % (0-0.5); Lymphocytes Absolute Auto 1.54 K/mm3 (0.9-3.2); Lymphocytes Percent Auto 20.6 % (18.3-44.2); Mean Corpuscular HGB Conc 33.2 g/dl (32-36); Mean Corpuscular Hemoglobin 31.5 pg (26-34); Mean Corpuscular Volume 94.8 fl (80-100); Mean Platelet Volume 9.8 fl (7.4-10.4); Monocytes Absolute Auto 0.8 K/mm3 (0.1-0.6); Monocytes Percent Auto 10.8 % (2.6-8.5); Neutrophils Absolute Auto 4.9 K/mm3 (1.3-6.7); Neutrophils Percent Auto 65.3 % (45.5-73.1); Platelet Count Result 201 k/mm3 (150-375); Red Blood Count 5.43 M/mm3 (4.6-6.20); Red Cell Distribution Width 12.1 % (11.5-14.5); White Blood Count 7.5 K/mm3 (4.5-10.0)
[2022-02-06] MEDS: SODIUM CHLORIDE 0.9% IV 1,000 ML 999 ML IV CONT ×2 (10:59→12:45)
[2022-02-06 11:10] LABS: Alanine Aminotransferase 74 U/L (6-50); Alkaline Phosphatase 106 U/L (38-126); Anion Gap 12 mmol/L (8-16); Aspartate Amino Transferase 66 U/L (17-59); Bilirubin,Total 0.7 mg/dL (0.2-1.3); Blood Urea Nitrogen 16 mg/dL (9-20); Calcium 8.3 mg/dL (8.4-10.2); Carbon Dioxide 27 mmol/L (22-30); Chloride 100 mmol/L (98-107); Estimated Glomerular Filt Rate > 60; Glucose 223 mg/dL (65-110); Lipase 46 U/L (23-300); Potassium 3.6 mmol/L (3.4-5.0); Sodium 139 mmol/L (137-145)
[2022-02-06 11:12] LABS: INR 2.2; Prothrombin Time 23.8 Seconds (11.1-14.7)
[2022-02-06 11:20] LABS: Troponin I < 0.012 ng/mL (0.000-0.034)
--- NOTE | 2022-02-06 11:20 | ED.CHESTPAIN ---
HPI - Chest Pain General Chief Complaint: Chest Pain Stated Complaint: afib Time Seen by Provider: 02/06/22 10:43 Source: patient and family Mode of arrival: ambulatory Limitations: no limitations History of Present Illness HPI narrative: 66 years old white male came to the emergency room by private car with his complaining of increased heart rate since yesterday, with feeling dizzy and about to blackout. Patient's is telling me that patient had the stomach flu with a lot of vomiting and diarrhea over the last 36 hours. Got better today. Currently patient denying any chest pain, shortness of breath, back pain or dizziness. History of hyperlipidemia, atrial fibrillation onTRELEGY,flecainide and Xarelto, patient had similar symptoms May 2021 and converted by cardioversion.. Related Data Home Medications Medication Instructions Recorded Confirmed diltiazem HCl 240 mg capsule,24 240 mg PO DAILY 04/04/19 01/16/22 hr,extended release flecainide 100 mg tablet 100 mg PO Q12H 04/04/19 01/16/22 rivaroxaban 20 mg tablet (Xarelto) 20 mg PO DAILY 04/04/19 01/16/22 azelastine 137 mcg (0.1 %) nasal intranasal 02/06/22 spray aerosol cetirizine 10 mg tablet 10 mg PO DAILY 02/06/22 multivitamin 1 tablet PO DAILY 02/06/22 phenylephrine HCl 0.5 % nasal spray intranasal 02/06/22 spray with pump Allergies Allergy/AdvReac Type Severity Reaction Status Date / Time hydromorphone Allergy Intermediate HIVES, Verified 02/06/22 11:02 ITCHING, SWELLING Penicillins Allergy Unknown Unknown Verified 02/06/22 11:02 phenytoin Allergy Unknown Unknown Verified 02/06/22 11:02 HORSERADISH Allergy Mild Unknown Uncoded 12/16/21 09:06 Review of Systems Review of Systems: All systems reviewed & are unremarkable except as noted in HPI and below PMFSH Past Medical History Medical History Abnormal MRI, lumbar spine Adult BMI 25.0-25.9 kg/sq m Atrial fibrillation BMI 26.0-26.9,adult BMI 27.0-27.9,adult COPD (chronic obstructive pulmonary disease) COVID Essential (primary) hypertension Mixed hyperlipidemia TIA (transient ischemic attack) Tobacco abuse Family History Family History Mother Family history of diabetes mellitus in first degree relative Family history of chronic obstructive pulmonary disease, Onset Age: 83 COPD (chronic obstructive pulmonary disease) Sibling Family history of diabetes mellitus in first degree relative Cerebrovascular accident Father Family history of coronary artery disease Family history of congestive heart failure, Onset Age: 43 COPD (chronic obstructive pulmonary disease) Social History Social History Smoking packs per day: 1.5 Smoking cigarettes per day: 30.0 Years smoked: 29 Smoking pack-years: 43.50 Smoking status: Former smoker Tobacco type: cigarettes Second hand tobacco smoke exposure: Yes Smoking end date: 04/17/93 Alcohol intake: never Substance use: never Substance use type: does not use 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
[2022-02-06] MEDS: dilTIAZem HCl INJ 25 MG/5 ML VIAL 10 MG IV PUSH ×2 (11:32→13:42)
[2022-02-06] MEDS: dilTIAZem 100 MG/100 ML 100 MG/100 ML BAG IV CONT (11:41)
--- NOTE | 2022-02-06 14:00 | PM.IMHP ---
H&P: HPI History of Present Illness Date/Time: 02/06/22 14:00 Chief Complaint: Palpitations. Narrative: This is a pleasant 62-year-old male with paroxysmal atrial fibrillation, hypertension, hyperlipidemia who presented to the ED from home for evaluation of palpitations. A couple of days ago he had nausea and innumerable bouts of vomiting and diarrhea, lasting approximately 36 hours. During that time frame he was not able to hold down any of his medications however he has been taking them as directed since yesterday morning. Unfortunately yesterday morning he started to have sensations of racing heart and irregular heartbeat with intermittent, nonradiating midsternal chest discomfort. He has also felt lightheaded and dizzy and at 1 time he felt as though he was going to lose consciousness while in the bathroom at work however he was able to get himself seated and the symptoms passed. On arrival to the emergency department he was found to be in atrial flutter with rapid ventricular response and he has since been started on a diltiazem drip and admitted to the IMU. At the time my evaluation he has no specific complaints and is really asymptomatic while lying supine; he has not gotten out of bed since he was brought to the ER. He denies current chest pain, shortness a breath, nausea, vomiting, and sweats. Review of Systems Review of Systems: Twelve systems were reviewed. Near-syncope yesterday as detailed above. No focal weakness or paresthesias. No auditory or visual changes. He denies pleuritic pain. No significant shortness of breath. No sinus congestion, rhinorrhea, otalgia, or odynophagia. No melena or hematochezia. Except as documented, all other systems were reviewed and are negative. [facility] Past Medical History Medical History (Updated 02/06/22 @ 19:53 by Andree Mccollum PA-C) Chronic anticoagulation Chronic obstructive pulmonary disease COVID (~12/2021) Essential (primary) hypertension History of compression fracture of spine Mixed hyperlipidemia Paroxysmal atrial fibrillation Transient ischemic attack Vitamin B12 deficiency Vitamin D deficiency Surgical History Surgical History (Updated 02/06/22 @ 19:50 by Andree Mccollum PA-C) History of cardiac catheterization History of cholecystectomy History of hernia repair History of loop recorder History of orthopedic surgery ORIF left hand fracture. Bilateral ulnar nerve release. Family History Family History Mother Family history of diabetes mellitus in first degree relative Family history of chronic obstructive pulmonary disease, Onset Age: 83 COPD (chronic obstructive pulmonary disease) Sibling Family history of diabetes mellitus in first degree relative Cerebrovascular accident Father Family history of coronary artery disease Family history of congestive heart failure, Onset Age: 43 COPD (chronic obstructive pulmonary disease) Black lung Social History Social History Social History: Surrogate medical decision maker: Cortney Feroz, spouse. Code status: Full code. Smoking packs per day: 2 Smoking cigarettes per day: 40.0 Years smoked: 27 Smoking pack-years: 54.00 Smoking status: Former smoker Tobacco type: cigarettes Second hand tobacco smoke exposure: Yes (childhood exposure. 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 Spiritual care concerns: No Has the Lack of Transportation Kept You From Medical Appointments or From Getting Medications?: No Within the Past 12 Months, Were You Worried Whether Your Food Would Run Out Before You Got Money to Buy More?: Never True What is Your Housing Situation Today?: I Have Housing Are You Worr
[2022-02-06 14:19] LABS: Troponin I < 0.012 ng/mL (0.000-0.034)
[2022-02-06 14:30] LABS: SARS-CoV-2 RNA PCR Negative
--- NOTE | 2022-02-06 15:35 | PC.NURSE ---
Report received by Noa RN with the ED department at 1535. Patient to go to IMU room 231.
--- NOTE | 2022-02-06 16:06 | ADMGEN ---
This patient, Anish Redman, was admitted to IMU Room 231-01 at 1545. Patient/family oriented to hospital policies and general routines including ID bracelet, bed and alarms, visiting hours, pain management, procedures, bathroom and other care routines, personal items, smoking policy, room service/diet, and visiting hours. Information on how to activate the Rapid Response Team has been discussed. Patient/Family are encouraged to report perceived risks to care and to ask questions if they do not understand what they are told or what they should do.
[2022-02-06] MEDS: dilTIAZem 100 MG/100 ML 100 MG/100 ML BAG 10 MG IV CONT (17:33)
[2022-02-06 17:41] LABS: Troponin I < 0.012 ng/mL (0.000-0.034)
[2022-02-06] MEDS: ATORVASTATIN 40 MG TABLET PO (20:57)
[2022-02-06] MEDS: FLECAINIDE ACETATE 100 MG TABLET PO (20:58)
[2022-02-07] VITALS (24 sets, daily range): BP systolic 109–122; BP diastolic 65–89; PULSE 102–130; RESP 18–20; TEMP 35.6–37.2; O2SAT 94–97
[2022-02-07 02:32] LABS: Hepatitis B Surface Antigen Negative (Negative)
[2022-02-07 02:37] LABS: HAV RESULT Negative (Negative); Hepatitis B Core IgM Result Negative (Negative)
[2022-02-07 02:49] LABS: Hepatitis C Virus Antibody Negative (Negative)
[2022-02-07 05:08] LABS: Hematocrit 43.8 % (42.0-52.0); Hemoglobin 14.5 g/dL (14.0-18.0); Mean Corpuscular HGB Conc 33.1 g/dl (32-36); Mean Corpuscular Hemoglobin 31.6 pg (26-34); Mean Corpuscular Volume 95.4 fl (80-100); Platelet Count Result 164 k/mm3 (150-375); Red Blood Count 4.59 M/mm3 (4.6-6.20); Red Cell Distribution Width 12.2 % (11.5-14.5); White Blood Count 5.5 K/mm3 (4.5-10.0)
[2022-02-07 05:17] LABS: Alanine Aminotransferase 60 U/L (6-50); Albumin Level 3.1 g/dL (3.5-5.1); Alkaline Phosphatase 84 U/L (38-126); Anion Gap 10 mmol/L (8-16); Aspartate Amino Transferase 42 U/L (17-59); Bilirubin,Total 0.4 mg/dL (0.2-1.3); Blood Urea Nitrogen 13 mg/dL (9-20); Calcium 7.5 mg/dL (8.4-10.2); Carbon Dioxide 24 mmol/L (22-30); Chloride 104 mmol/L (98-107); Estimated CRCL calculation 77 ml/min; Estimated Glomerular Filt Rate > 60; Glucose 153 mg/dL (65-110); Magnesium 1.7 mg/dL (1.6-2.3); Potassium 3.8 mmol/L (3.4-5.0); Sodium 138 mmol/L (137-145)
[2022-02-07] MEDS: FLECAINIDE ACETATE 100 MG TABLET PO ×2 (09:04→20:30)
[2022-02-07] MEDS: RIVAROXABAN 20 MG TABLET PO (09:04)
[2022-02-07] MEDS: dilTIAZem 100 MG/100 ML 100 MG/100 ML BAG IV CONT (09:05)
--- NOTE | 2022-02-07 09:28 | PM.IMPN ---
Progress Note: A&P Assessment and Plan (1) Atrial flutter with rapid ventricular response: Code(s): I48.92 - Unspecified atrial flutter Status: Acute Assessment and Plan: TSH normal. Troponin negative. Likely precipitated by missing doses of his medication due to nausea and vomiting for two days. Continues to have elevated heart rate. Electrolytes are within range. -Diltiazem ggt -Appreciate Cardiology recommendations -Continue home flecainide (2) Hyperglycemia: Code(s): R73.9 - Hyperglycemia, unspecified Status: Acute Assessment and Plan: Given age and other comorbidities. Check a1c. Will monitor. (3) Chronic anticoagulation: Code(s): Z79.01 - [facility] (current) use of anticoagulants Status: Acute Assessment and Plan: Continue rivaroxaban. (4) Elevated LFTs: Code(s): R79.89 - Other specified abnormal findings of blood chemistry Status: Acute Assessment and Plan: Improved. Likely has hepatic steatosis. Acute hepatitis panel negative. Will monitor. Subjective Date/time seen: 02/07/22 09:28 Patient says he feels his heart racing and can hear it as well. Denies chest pain or shortness of breath. Says he has COPD and will have lightheadedness when he is short of breath. Family member is at bedside. Review of Systems Cardiovascular: Cardiovascular: Denies chest pain and Reports palpitations Objective Data Vital Signs Vital Signs: Vital Signs - 24 hr 02/06/22 11:41 02/06/22 11:45 02/06/22 11:34 Temperature Pulse Rate 126 H 127 H 127 H Respiratory Rate 19 19 Blood Pressure 116/81 107/81 116/81 Pulse Oximetry 93 94 Oxygen Delivery 02/06/22 11:15 02/06/22 11:00 02/06/22 10:51 Temperature Pulse Rate 125 H 122 H 123 H Respiratory Rate 18 19 20 Blood Pressure 108/79 120/80 135/89 Pulse Oximetry 95 95 95 Oxygen Delivery 02/06/22 12:10 02/06/22 12:00 02/06/22 12:08 Temperature Pulse Rate 129 H 128 H 128 H Respiratory Rate 21 H 21 H Blood Pressure 97/77 L 98/76 L 97/77 L Pulse Oximetry 94 93 Oxygen Delivery 02/06/22 12:45 02/06/22 12:47 02/06/22 12:15 Temperature Pulse Rate 130 H 129 H Respiratory Rate 20 Blood Pressure 107/82 106/88 Pulse Oximetry 93 93 Oxygen Delivery Room Air 02/06/22 12:30 02/06/22 12:45 02/06/22 13:00 Temperature Pulse Rate 130 H 130 H 128 H Respiratory Rate 21 H 20 20 Blood Pressure 112/85 107/82 101/75 Pulse Oximetry 93 93 93 Oxygen Delivery 02/06/22 13:15 02/06/22 13:30 02/06/22 13:45 Temperature Pulse Rate 128 H 126 H 125 H Respiratory Rate 16 22 H 20 Blood Pressure 99/77 L 113/76 103/82 Pulse Oximetry 95 96 96 Oxygen Delivery 02/06/22 15:30 02/06/22 13:45 02/06/22 14:00 Temperature Pulse Rate 128 H 125 H 128 H Respiratory Rate 21 H 20 15 Blood Pressure 105/84 103/82 97/71 L Pulse Oximetry 93 94 94 Oxygen Delivery 02/06/22 14:15 02/06/22 14:45 02/06/22 15:00 Temperature Pulse Rate 127 H 110 H 118 H Respiratory Rate 24 H 19 15 Blood Pressure 99/75 L 98/74 L 82/65 L Pulse Oximetry 93 93 94 Oxygen Delivery 02/06/22 15:07 02/06/22 15:15 02/06/22 16:58 Temperature Pulse Rate 112 H 129 H 131 H Respiratory Rate 17 16 Blood Pressure 98/80 L 92/77 L 96/67 L Pulse Oximetry 93 93 Oxygen Delivery 02/06/22 17:10 02/06/22 16:00 02/06/22 16:00 Temperature 36.3 C L Pulse Rate 127 H 130 H Respiratory Rate 24 H Blood Pressure 107/61 96/67 L Pulse Oximetry 97 Oxygen Delivery 02/06/22 17:02 02/06/22 16:00 02/06/22 17:33 Temperature Pulse Rate 79 69 Respiratory Rate Blood Pressure Pulse Oximetry Oxygen Delivery Room Air 02/06/22 17:34 02/06/22 17:56 02/06/22 18:00 Temperature Pulse Rate 66 83 83 Respiratory Rate Blood Pressure Pulse Oximetry Oxygen Delivery 02/06/22 18:34 02/06
[2022-02-07] MEDS: MULTIVITAMINS THERAPEUTIC TAB (*BKC) 1 TABLET PO (09:53)
[2022-02-07] MEDS: POTASSIUM CHLORIDE 20 MEQ TABLET 40 MEQ PO (09:53)
[2022-02-07] MEDS: LORATADINE 10 MG TABLET PO (09:53)
--- NOTE | 2022-02-07 10:52 | PCRCNOTE ---
Window of time for administration has passed. See next scheduled administration.
--- NOTE | 2022-02-07 11:07 | PM.CNCAR ---
Assessment and Plan Assessment and plan (1) Atrial flutter with rapid ventricular response: Code(s): I48.92 - Unspecified atrial flutter Status: Acute Assessment and Plan: Currently in atrial flutter with RVR with HR in the 120bpm. On Dilt drip at 5. Hemodynamically stable. This was likely triggered by his recent GI illness with severe nausea/vomiting/diarrhea and unable to tolerate his oral meds for at least 2 days. Continue home dose of Flecainide, Xarelto. Increase dose of Dilt drip to 10. If patient remains in AFlutter with RVR, will consider ANOOP guided DCCV tomorrow (need ANOOP because patient was not tolerating oral meds for 2 days during episodes of nausea/vomiting). (2) Chronic anticoagulation: Code(s): Z79.01 - medical terminologist (current) use of anticoagulants Status: Acute Assessment and Plan: Continue Xarelto (3) Chronic obstructive pulmonary disease: Code(s): J44.9 - Chronic obstructive pulmonary disease, unspecified Status: Acute Assessment and Plan: As per primary team History of Present Illness History of Present Illness Consult date/time: 02/07/22 11:07 Requesting physician: Bessie Florez MD Consult reason: atrial fibrillation (Atrial flutter) and Other Reason For Visit: a flutter with rvr Narrative: Patient is a 66-year-old male with a history of COPD, atrial fibrillation / flutter, history of TIA who we are being consulted for atrial flutter. Patient sees Dr. Burrell, and already is established with Electrophysiology. Patient states that he had severe nausea, vomiting, and diarrhea that lasted for approximately 2 days (possible viral illness or food poisoning). Did take his medications during that time, however given severe nausea/vomiting, patient would vomit them back immediately. Patient began having palpitations yesterday. Presented to the ER and found with atrial flutter with RVR. Has been on Diltiazem drip. Patient states he is feeling better this morning. On Dilt drip of 5. No longer having nausea/vomiting, and is able to tolerate oral intake. Has some diarrhea, but otherwise feels okay. Review of Systems Constitutional: Constitutional: Reports no additional constitutional complaints, Denies chills and Denies night sweats ENT: Denies dysphagia Cardiovascular: Cardiovascular: Denies chest pain, Denies leg edema, Denies lightheadedness and Reports palpitations Respiratory: Respiratory: Denies dyspnea and Denies dyspnea on exertion Gastrointestinal: Gastrointestinal: Denies abdominal pain, Reports diarrhea, Reports nausea and Reports vomiting Musculoskeletal: Musculoskeletal: Reports no additional musculoskeletal complaints Integumentary/Breasts: Skin/Breast: Reports system reviewed and no additional complaints, except as docu Neurologic: Reports system reviewed and no additional complaints, except as documented Psychiatric: Psychiatric: Reports no additional psychiatric complaints Hematologic/Lymphatic: Hematologic/Lymphatic: Denies easy bleeding and Denies easy bruising PMFSH Past Medical History Medical History Chronic anticoagulation Chronic obstructive pulmonary disease COVID (~12/2021) Essential (primary) hypertension History of compression fracture of spine Mixed hyperlipidemia Paroxysmal atrial fibrillation Transient ischemic attack Vitamin B12 deficiency Vitamin D deficiency Surgical History Surgical History History of cardiac catheterization History of cholecystectomy History of hernia repair History of loop recorder History of orthopedic surgery ORIF left hand fracture. Bilateral ulnar nerve release. Family History Family History Mother Family history of diabetes mellitus in first degree relative Family history of chronic obstructive pulmonary disease, Onset Age: 83
[2022-02-07] MEDS: ALBUTEROL SULFATE (*SP) AEROSOL 1 PUFF 2 PUFF INHALATION (13:43)
[2022-02-07] MEDS: FLUTICASONE/UMECLIDIN/VILANTER 200-62.5-25 MCG ELLIPTA 1 PUFF INHALATION (13:43)
--- NOTE | 2022-02-07 17:12 | PC.NURSE ---
Call exchange and left page with Dr. Watts. Tamara Tucker NP returned call. Order request to increase Cardizem gtt to 15mg/hr d/t increase heart rate. Patient's heart rate has been upper 120-low 130's for the last about an hour. BP 116/82. New order to increase Cardizem gtt to 15mg/hr and continue to monitor BP.
[2022-02-07] MEDS: dilTIAZem 100 MG/100 ML 100 MG/100 ML BAG 15 MG IV CONT (18:17)
[2022-02-07] MEDS: ATORVASTATIN 40 MG TABLET PO (20:29)
[2022-02-08] VITALS (25 sets, daily range): BP systolic 99–123; BP diastolic 72–92; PULSE 60–971; RESP 15–23; TEMP 35.9–36.4; O2SAT 92–98
--- NOTE | 2022-02-08 | ECHO_ITS ---
Patient Info Name: Anish Redman Age: 66 years : 1955 Gender: Male Ht: 69 in Wt: 180 lbs BSA: 2.01 m2 HR: 71 bpm BP: 118 / 77 mmHg Heart Rhythm: Sinus Rhythm Technical Quality: Fair Exam Date: 02/08/2022 11:48 AM Exam Location: [facility] Card Pulmonary Patient Status: Inpatient Admit Date: 02/07/2022 Staff Ordering Physician: Kevon Noble MD (lorna/elis) Route Vending Machine Servicer: Ángela Coleman RDCS Attending Provider: Nabeel Paiz MD Referring Physician: Real GARCIA; Exam Type: CA echo doppler color flow Study Info Indications - atrial flutter, now in sinus Complete two-dimensional, color flow and Doppler transthoracic echocardiogram is performed. Summary 1. Complete two-dimensional, color flow and Doppler transthoracic echocardiogram is performed. 2. Left ventricular systolic function is normal, estimated at 55-60%. 3. There is mildly increased left ventricular wall thickness. 4. Right ventricular chamber dimension is mildly enlarged. 5. Right ventricular systolic function is normal. 6. There is mild tricuspid valve regurgitation. Left Ventricle Left ventricular chamber dimension is normal. Left ventricular systolic function is normal, estimated at 55-60%. There is mildly increased left ventricular wall thickness. Right Ventricle Right ventricular chamber dimension is mildly enlarged. Right ventricular systolic function is normal. Left Atria Left atrial chamber dimension is normal. Right Atria Right atrial chamber dimension is normal. Atrial Septum Intact interatrial septum visualized by color flow imaging. Aortic Valve The aortic valve is probable trileaflet. There is mild aortic valve sclerosis. There is no aortic valve stenosis. There is no aortic valve regurgitation. Pulmonic Valve The pulmonic valve is not well visualized. Mitral Valve The mitral valve has normal leaflets. There is no mitral valve stenosis. There is no mitral valve regurgitation. Tricuspid Valve There is mild tricuspid valve regurgitation. Pericardium/Pleural The pericardium appears epicardial fat pad. There is no pericardial effusion. Aorta The aortic root size at the sinus of Valsalva is normal. Left Ventricular Outflow Tract Name Value Normal LVOT 2D LVOT Diameter 2.0 cm LVOT Doppler LVOT Peak Gradient 3 mmHg LVOT Mean Gradient 1 mmHg LVOT VTI 15 cm LVOT VTI/AV VTI Ratio 1.0 LVOT Stroke Volume 46 ml LVOT CO 3.1 l/min LVOT CI 1.6 l/min/m2 Pulmonic Valve Name Value Normal RVOT Doppler RVOT Peak Gradient 0 mmHg PV Doppler
[2022-02-08] MEDS: dilTIAZem 100 MG/100 ML 100 MG/100 ML BAG 15 MG IV CONT ×2 (01:00→07:18)
[2022-02-08 05:14] LABS: Basophils Percent Auto 0.4 % (0.2-1.2); Eosinophils Absolute Auto 0.2 K/mm3 (0-0.3); Eosinophils Percent Auto 3.3 % (0-4.4); Hematocrit 41.5 % (42.0-52.0); Hemoglobin 13.8 g/dL (14.0-18.0); Immature Granulocyte Absolute 0.02 K/mm3 (0.00-0.031); Immature Granulocyte Percent A 0.4 % (0-0.5); Lymphocytes Absolute Auto 1.53 K/mm3 (0.9-3.2); Lymphocytes Percent Auto 28.1 % (18.3-44.2); Mean Corpuscular HGB Conc 33.3 g/dl (32-36); Mean Corpuscular Hemoglobin 30.9 pg (26-34); Mean Platelet Volume 9.5 fl (7.4-10.4); Monocytes Absolute Auto 0.6 K/mm3 (0.1-0.6); Monocytes Percent Auto 11.7 % (2.6-8.5); Neutrophils Absolute Auto 3.1 K/mm3 (1.3-6.7); Neutrophils Percent Auto 56.1 % (45.5-73.1); Platelet Count Result 152 k/mm3 (150-375); Red Blood Count 4.46 M/mm3 (4.6-6.20); Red Cell Distribution Width 11.9 % (11.5-14.5); White Blood Count 5.5 K/mm3 (4.5-10.0)
[2022-02-08 05:20] LABS: Anion Gap 10 mmol/L (8-16); Blood Urea Nitrogen 12 mg/dL (9-20); Calcium 7.5 mg/dL (8.4-10.2); Carbon Dioxide 23 mmol/L (22-30); Chloride 105 mmol/L (98-107); Estimated CRCL calculation 77 ml/min; Estimated Glomerular Filt Rate > 60; Glucose 185 mg/dL (65-110); Sodium 138 mmol/L (137-145)
[2022-02-08 05:25] LABS: Hemoglobin A1C 9.3 % (<5.7)
[2022-02-08] MEDS: FLUTICASONE/UMECLIDIN/VILANTER 200-62.5-25 MCG ELLIPTA 1 PUFF INHALATION (08:12)
[2022-02-08] MEDS: ALBUTEROL SULFATE NEB 2.5 MG/3 ML INH INHALATION (08:12)
[2022-02-08] MEDS: RIVAROXABAN 20 MG TABLET PO (08:23)
[2022-02-08] MEDS: MULTIVITAMINS THERAPEUTIC TAB (*BKC) 1 TABLET PO (08:23)
[2022-02-08] MEDS: FLECAINIDE ACETATE 100 MG TABLET PO (08:23)
[2022-02-08] MEDS: LORATADINE 10 MG TABLET PO (08:23)
--- NOTE | 2022-02-08 08:32 | PC.NURSE ---
Pt to lab support service tech for ANOOP w/ cardioversion via bed
--- NOTE | 2022-02-08 08:43 | ECG_ITS ---
Measurements Intervals [place] Rate: 63 P: 80 CT: 225 QRS: -68 QRSD: 174 T: 19 QT: 471 QTc: 484 Interpretive Statements SINUS RHYTHM WITH FIRST DEGREE AV BLOCK RIGHT BUNDLE BRANCH BLOCK [120+ ms QRS DURATION, UPRIGHT V1, 40+ ms S IN I/aVL/V4/V5/V6] SEPTAL MYOCARDIAL INFARCTION , OF INDETERMINATE AGE [40+ ms Q WAVE IN V1/V2] COMPARED TO ECG 02/08/2022 08:45:48 SINUS RHYTHM NOW PRESENT MYOCARDIAL INFARCT FINDING NOW PRESENT Electronically Signed On 02-08-2022 16:16:26 CDT by Kevon Noble M.D.
--- NOTE | 2022-02-08 08:54 | PM.IMPN ---
Progress Note: A&P Assessment and Plan (1) Atrial flutter with rapid ventricular response: Code(s): I48.92 - Unspecified atrial flutter Status: Acute Assessment and Plan: TSH normal.? Troponin negative.? Likely precipitated by missing doses of his medication due to nausea and vomiting for two days.? Continues to have elevated heart rate.? Electrolytes are within range.?Taken for cardioversion due to persistent arrhythmia. -Will resume home diltiazem -Appreciate Cardiology recommendations -Continue home flecainide ? (2) Diabetes: Code(s): E11.9 - Type 2 diabetes mellitus without complications Status: Acute Assessment and Plan: Hemoglobin a1c 9.3. Newly diagnosed diabetes. Discussed diagnosis with patient and . Discussed metformin side effects. Will start metformin 500 mg BID and advised patient he will need to follow up with primary care physician for a referral to diabetes education. -Metformin 500 mg BID (3) Chronic anticoagulation: Code(s): Z79.01 - rn long term care (current) use of anticoagulants Status: Acute Assessment and Plan: Continue rivaroxaban. (4) Chronic obstructive pulmonary disease: Code(s): J44.9 - Chronic obstructive pulmonary disease, unspecified Status: Acute Assessment and Plan: Will resume home inhalers for discharge. (5) Elevated LFTs: Code(s): R79.89 - Other specified abnormal findings of blood chemistry Status: Acute Assessment and Plan: Improved.? Likely has hepatic steatosis.? Acute hepatitis panel negative. Will need follow up outpatient with primary care physician. Time Spent With Patient Time with patient: 15 - 25 minutes Subjective Date/time seen: 02/08/22 08:54 Objective Data Vital Signs Vital Signs: Vital Signs - 24 hr 02/07/22 09:04 02/07/22 09:05 02/07/22 09:05 Temperature Pulse Rate 128 H 129 H 129 H Respiratory Rate Blood Pressure 122/65 112/65 Pulse Oximetry Oxygen Delivery 02/07/22 09:48 02/07/22 10:00 02/07/22 12:00 Temperature Pulse Rate 121 H 117 H Respiratory Rate Blood Pressure Pulse Oximetry Oxygen Delivery Room Air 02/07/22 12:00 02/07/22 12:47 02/07/22 13:47 Temperature 36.2 C L Pulse Rate 118 H 119 H Respiratory Rate 20 Blood Pressure 115/82 Pulse Oximetry 95 96 Oxygen Delivery Room Air 02/07/22 14:00 02/07/22 14:00 02/07/22 12:00 Temperature Pulse Rate 127 H 127 H 118 H Respiratory Rate Blood Pressure 115/82 Pulse Oximetry Oxygen Delivery 02/07/22 16:27 02/07/22 16:00 02/07/22 16:00 Temperature 36.1 C L Pulse Rate 128 H 127 H Respiratory Rate 18 Blood Pressure 116/82 Pulse Oximetry 95 Oxygen Delivery Room Air 02/07/22 16:00 02/07/22 17:14 02/07/22 18:17 Temperature Pulse Rate 127 H 130 H 129 H Respiratory Rate Blood Pressure 116/82 Pulse Oximetry Oxygen Delivery 02/07/22 18:17 02/07/22 18:00 02/07/22 20:00 Temperature 36.5 C Pulse Rate 129 H 128 H 128 H Respiratory Rate 18 Blood Pressure 122/89 Pulse Oximetry 96 Oxygen Delivery 02/07/22 20:30 02/07/22 20:00 02/07/22 20:00 Temperature Pulse Rate 114 H 112 H Respiratory Rate Blood Pressure Pulse Oximetry Oxygen Delivery Room Air 02/07/22 22:00 02/07/22 23:39 02/08/22 00:00 Temperature 37.2 C Pulse Rate 102 H 124 H 119 H Respiratory Rate 18 Blood Pressure 110/88 Pulse Oximetry 94 Oxygen Delivery 02/08/22 00:00 02/08/22 00:58 02/08/22 01:00 Temperature Pulse Rate 120 H 120 H Respiratory Rate Blood Pressure Pulse Oximetry Oxygen Delivery Room Air 02/08/22 02:00 02/08/22 04:00 02/08/22 04:00 Temperature 36.4 C Pulse Rate 110 H 99 117 H Respiratory Rate 16 Blood Pressure 123/74 Pulse Oximetry 98 Oxygen Delivery 02/08/22 04:00 02/08/22 06:00 01/16
--- NOTE | 2022-02-08 09:00 | ECG_ITS ---
Measurements Intervals [place] Rate: 125 P: GA: 0 QRS: 227 QRSD: 152 T: 15 QT: 349 QTc: 503 Interpretive Statements ATRIAL FLUTTER/TACHYCARDIA WITH RAPID VENTRICULAR RESPONSE MARKED RIGHT AXIS DEVIATION [QRS AXIS > 100] RIGHT BUNDLE BRANCH BLOCK [120+ ms QRS DURATION, UPRIGHT V1, 40+ ms S IN I/aVL/V4/V5/V6] COMPARED TO ECG 02/06/2022 10:41:41 NO SIGNIFICANT CHANGES Electronically Signed On 02-08-2022 16:15:37 CDT by Kevon Noble M.D.
--- NOTE | 2022-02-08 09:00 | WPDMODSED ---
Moderate Sedation Note-Pt Data Patient Data Diagnosis: Atrial Flutter with RVR Present Complaint: Atrial Flutter with RVR Procedure to be performed/Plan: ANOOP guided DCCV Allergies Allergy/AdvReac Type Severity Reaction Status Date / Time hydromorphone Allergy Intermediate HIVES, Verified 02/06/22 11:02 ITCHING, SWELLING Penicillins Allergy Unknown Loss of Verified 02/06/22 16:18 Consciousness phenytoin Allergy Unknown Unknown Verified 02/06/22 11:02 HORSERADISH Allergy Mild Hives Uncoded 02/06/22 16:18 Home Medications Medication Instructions Recorded Confirmed Type diltiazem HCl 240 mg capsule,24 240 mg PO DAILY 04/04/19 02/06/22 History hr,extended release flecainide 100 mg tablet 100 mg PO Q12H 04/04/19 02/06/22 History rivaroxaban 20 mg tablet (Xarelto) 20 mg PO DAILY 04/04/19 02/06/22 History fluticasone fur. 200 mcg-umeclid 1 inh inhalation DAILY #3 device 01/25/22 02/06/22 Rx 62.5 mcg-vilant 25 mcg inhalat.powder (Trelegy Ellipta) albuterol sulfate 2.5 mg/3 mL 2.5 mg inhalation DAILY 02/06/22 02/06/22 History (0.083 %) solution for nebulization albuterol sulfate 90 mcg/actuation 2 puff inhalation QID PRN 02/06/22 02/06/22 History aerosol inhaler (ProAir HFA) Shortness Of Breath Or Wheezing atorvastatin 40 mg tablet (Lipitor) 40 mg PO HS 02/06/22 02/06/22 History cetirizine 10 mg tablet 10 mg PO DAILY 02/06/22 02/06/22 History multivitamin 1 tablet PO DAILY 02/06/22 02/06/22 History Current Medications: Active Medications Acetaminophen (Acetaminophen 325 Mg Tablet) 650 mg PO Q4H PRN PRN Reason: Mild Pain (1-3) or Fever Albuterol (Albuterol Sulfate (*Sp) Aerosol 1 Puff) 2 puff INHALATION QID PRN PRN Reason: Shortness Of Breath Or Wheezing Last Admin: 02/07/22 13:43 Dose: 2 puff Albuterol (Albuterol Sulfate Neb 2.5 Mg/3 Ml Inh) 2.5 mg INHALATION DAILY VIJAYA Last Admin: 02/08/22 08:12 Dose: 2.5 mg Atorvastatin Calcium (Atorvastatin 40 Mg Tablet) 40 mg PO HS [facility] Last Admin: 02/07/22 20:29 Dose: 40 mg Dextrose (Dextrose 50% 25 Gm/50 Ml Syringe) 12.5 gm IV PUSH PRN PRN; Protocol PRN Reason: Hypoglycemia Flecainide Acetate (Flecainide Acetate 100 Mg Tablet) 100 mg PO Q12HR [facility] Last Admin: 02/08/22 08:23 Dose: 100 mg Fluticasone/Umeclidinium/Vilanterol (Fluticasone/Umeclidin/Vilanter 200-62.5-25 Mcg Ellipta) 1 puff INHALATION DAILY [facility] Last Admin: 02/08/22 08:12 Dose: 1 puff Glucagon (Glucagon For Inj 1 Mg Vial) 1 mg IM PRN PRN; Protocol PRN Reason: Hypoglycemia Glucose (Glucose Oral Gel 15 Gm Of Glucse In 37.5 Gm Tube) 15 gm PO PRN PRN; Protocol PRN Reason: Hypoglycemia Diltiazem HCl (Cardizem 100 Mg/100 Ml) 100 mg in 100 mls @ 15 mls/hr IV CONT .Q6H40M [facility]; Protocol Last Titration: 02/08/22 08:24 Dose: 15 mg/hr, 15 mls/hr Dextrose (Dextrose 5% 1,000 Ml) 1,000 mls @ 100 mls/hr IVPB PRN PRN; Protocol PRN Reason: Hypoglycemia Insulin Aspart (Insulin Aspart (*Bkc) 100 Units/Ml) 2 - 5 units SUB-Q TIDWM [facility]; Protocol Loratadine (Loratadine 10 Mg Tablet) 10 mg PO DAILY [facility] Last Admin: 02/08/22 08:23 Dose: 10 mg Multivitamins Therapeutic (Multivitamins Therapeutic Tab (*Bkc)) 1 tablet PO DAILY [facility] Last Admin: 02/08/22 08:23 Dose: 1 tablet Rivaroxaban (Rivaroxaban 20 Mg Tablet) 20 mg PO DAILY [facility] Last Admin: 02/08/22 08:23 Dose: 20 mg Sedation/Anesthesia: No previous sedation/anesthesia problems (including family history). [facility] Past Medical History Medical History Chronic anticoagulation Chronic obstructive pulmonary disease COVID (~12/2021) Essential (primary) hypertension History of compression fracture of spine Mixed hyperlipidemia Paroxysmal atrial fibrillation Transient ischemic attack Vitamin B12 deficiency Vitamin D deficiency Surgical History Surgical History History of cardiac catheterization History of cholecys
--- NOTE | 2022-02-08 10:28 | PC.NURSE ---
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 No issues noted. VS stable and in NSR. Family at bedside
--- NOTE | 2022-02-08 11:00 | PM.PNCARD ---
Progress Note: A&P Assessment and Plan (1) Atrial flutter with rapid ventricular response: Code(s): I48.92 - Unspecified atrial flutter Status: Acute Assessment and Plan: Currently in atrial flutter with RVR with HR in the 120bpm. On Dilt drip. Hemodynamically stable. This was likely triggered by his recent GI illness with severe nausea/vomiting/diarrhea and unable to tolerate his oral meds for at least 2 days. Continue home dose of Flecainide, Xarelto. As patient remains in atrial flutter with RVR, will perform ANOOP guided DCCV. ANOOP-guided DCCV restored sinus rhythm after 1 shock with 200J. HR in sinus in the 60s at this time. Diltiazem drip was discontinued right before ANOOP. If HR remains in the low 60s for this afternoon, would restart home dose of PO Dilitazem in the AM, otherwise will give dose of PO Dilt this afternoon. Continue Flecainide and Xarelto. Patient to follow-up with his EP at [facility]. Can possibly be discharged later this afternoon. (2) Chronic anticoagulation: Code(s): Z79.01 - longterm (current) use of anticoagulants Status: Acute Assessment and Plan: Continue Xarelto (3) Chronic obstructive pulmonary disease: Code(s): J44.9 - Chronic obstructive pulmonary disease, unspecified Status: Acute Assessment and Plan: As per primary Time Spent With Patient Time with patient: 15 - 25 minutes Subjective Date/time seen: 02/08/22 11:00 Interval history: Reason for visit: Atrial flutter with RVR. No acute events overnight. Patient remains in atrial flutter with RVR. Denies chest pain, shortness of breath. NPO for ANOOP guided DCCV. Remains on Dilt drip. Review of Systems Constitutional: Constitutional: Reports no additional constitutional complaints, Denies chills and Denies night sweats ENT: Denies dysphagia Cardiovascular: Cardiovascular: Denies chest pain, Denies leg edema, Denies lightheadedness and Reports palpitations Respiratory: Respiratory: Denies dyspnea and Denies dyspnea on exertion Gastrointestinal: Gastrointestinal: Denies abdominal pain, Denies nausea and Denies vomiting Neurologic: Reports system reviewed and no additional complaints, except as documented Hematologic/Lymphatic: Hematologic/Lymphatic: Denies easy bleeding and Denies easy bruising Exam Const: General: comfortable and no acute distress HENMT: Mouth: Yes moist mucous membranes Eyes: General: appearance normal, both eyes and all related structures Neck: Neck: supple and no JVD Resp: Effort & Inspection: normal respiratory effort Auscultation: clear to auscultation bilaterally Cardio: Rate: regular rate and tachycardic Heart sounds: no murmurs GI: GI Palp: Yes Soft to palpation and No Tenderness to palpation present (GI) Skin: General skin exam: normal color Neuro: Speech: normal speech Extrem: General: no edema Psych: Mental Status: mental status grossly normal Objective Data Vital Signs Vital Signs: Vital Signs - 24 hr 02/07/22 12:00 02/07/22 12:00 02/07/22 12:47 Temperature 36.2 C L Pulse Rate 118 H 119 H Respiratory Rate 20 Blood Pressure 115/82 Pulse Oximetry 95 Oxygen Delivery Room Air Oxygen Flow Rate 02/07/22 13:47 02/07/22 14:00 02/07/22 14:00 Temperature Pulse Rate 127 H 127 H Respiratory Rate Blood Pressure Pulse Oximetry 96 Oxygen Delivery Room Air Oxygen Flow Rate 02/07/22 12:00 02/07/22 16:27 02/07/22 16:00 Temperature 36.1 C L Pulse Rate 118 H 128 H 127 H Respiratory Rate 18 Blood Pressure 115/82 116/82 Pulse Oximetry 95 Oxygen Delivery Oxygen Flow Rate 02/07/22 16:00 02/07/22 16:00 02/07/22 17:14 Temperature Pulse Rate 127 H 130 H Respiratory Rate Blood Pressure 116/82 Pulse Oximetry Oxygen Delivery Room Air Oxygen Flow Rate 02/07/22 18:17 02/07/22 18:17 02/07/22 18:00 Temperature Pulse Rate 129 H 129 H 128 H Respiratory Rate B
[2022-02-08 12:37] LABS: Glucose Point of Care 155 mg/dl (65-105)
--- NOTE | 2022-02-08 13:12 | WPDTECDV ---
ANOOP with Cardioversion Date of procedure: 02/08/22 Procedure Type: Date of Procedure: 02/08/2022 Brief History Of Present Illness: Patient is a pleasant 66-year-old male with a history of atrial flutter who is referred for transesophageal echocardiogram for further evaluation for intracardiac thrombus prior to elective cardioversion. Procedure In Detail: After verbal and written informed consent was obtained, the patient risks, benefits, and alternatives explained in detail. The patient agreed to proceed with the plan of care as outlined above.?The patient was evaluated at bedside in the [facility] procedure room.?The posterior oropharynx, neck, and jaw angle all within normal limits on examination. Lungs were clear to auscultation. See pre-sedation note for further details. The patient was then placed in the appropriate 30 to 45 degree angle supine position at a slight left lateral decubitus position.?Patient was monitored throughout the study with telemetry, oxygen saturation, end-tidal CO2 monitoring, blood pressure, heart rate, and respirations.? The posterior hypopharynx was then locally anesthetized using repeated administration of Hurricaine spray as well as gargled viscous lidocaine.? After local anesthetic of the posterior hypopharynx was achieved and the oral bite block placed, moderate sedation was administered.? After confirmation of adequate moderate sedation, the transesophageal echocardiogram probe was advanced through the oral bite block into the posterior hypopharynx and into the esophagus easily and without complication.? Multiple, multiplanar echocardiographic images were obtained in multiple standard re- projections.? Pulsed wave, continuous-wave, and color-flow Doppler were utilized in conjunction with this study.? At the conclusion of the study, the transesophageal echocardiogram probe was removed easily and without complication.? The patient tolerated the procedure well without difficulty.? Synchronized cardioversion was performed after completion of ANOOP. Patient received 1 shock at 200 joules with anglican of sinus rhythm. Moderate Sedation/Anesthesia administration: Patient reports no prior problems with sedation/anesthesia. Please see pre-sedation noted for physical examination documentation. As noted above, after adequate local anesthesia of the posterior hypopharynx was achieved, a total of? 4mg intravenous Versed and a total of 100mcg intravenous Fentanyl in multiple divided doses was administered for moderate sedation.? Sedation start time was 09:14 and end time was 09:32 for a total intra-service/procedure face-face time of?18 minutes.? Sedation was administered by a qualified/certified observer Zulma CUBA under my supervision with intra-procedure [id number] observation and management throughout the entirety of the procedure.? There were no other issues or complications and patient tolerated the procedure well. See post-anesthesia documentation. FINDINGS: LEFT VENTRICLE: Size and systolic function were within normal limits without wall motion abnormalities with ejection fraction of 60-65%. RIGHT VENTRICLE: Right ventricle is enlarged. Systolic function appears normal. LEFT ATRIUM: Normal size. RIGHT ATRIUM: Enlarged size. INTERATRIAL SEPTUM: ? Interatrial septum appears aneurysmal. No color flow across the septum appreciated. MITRAL VALVE: ? Mitral valve is anatomically normal with preserved leaflet excursion and mild regurgitation. AORTIC VALVE: The aortic valve was an anatomically normal 3 leaflet structure with normal leaflet excursion. TRICUSPID VALVE: The tricuspid valve is anatomically normal with normal leaflet excursion with mild regurgitation identified.? No mobile elements identified. PULMONIC VALVE: Pulmonic valve was not well visualized. LEFT ATRIAL APPENDAGE: Anatomically normal structure with prominent pectinate muscles without thrombus or vegetation identified. Definity was administered to assist in rul
--- NOTE | 2022-02-08 15:52 | PM.DS ---
DS: Admitting Diagnosis Discharge Date 02/08/22 Admitting Diagnosis Atrial fibrillation with RVR DS: Discharge Diagnosis Discharge Diagnosis (1) Atrial flutter with rapid ventricular response: Code(s): I48.92 - Unspecified atrial flutter Status: Acute Assessment and Plan: TSH normal.? Troponin negative.? Likely precipitated by missing doses of his medication due to nausea and vomiting for two days.? Continues to have elevated heart rate.? Electrolytes are within range.?Taken for cardioversion due to persistent arrhythmia. -Will resume home diltiazem for discharge -Appreciate Cardiology recommendations -Continue home flecainide ? (2) Diabetes: Code(s): E11.9 - Type 2 diabetes mellitus without complications Status: Acute Assessment and Plan: Hemoglobin a1c 9.3. Newly diagnosed diabetes. Discussed diagnosis with patient and . Discussed metformin side effects. Will start metformin 500 mg BID and advised patient he will need to follow up with primary care physician for a referral to diabetes education. -Metformin 500 mg BID (3) Chronic anticoagulation: Code(s): Z79.01 - [facility]DC (current) use of anticoagulants Status: Acute Assessment and Plan: Continue rivaroxaban. (4) Chronic obstructive pulmonary disease: Code(s): J44.9 - Chronic obstructive pulmonary disease, unspecified Status: Acute Assessment and Plan: Will resume home inhalers for discharge. (5) Elevated LFTs: Code(s): R79.89 - Other specified abnormal findings of blood chemistry Status: Acute Assessment and Plan: Improved.? Likely has hepatic steatosis.? Acute hepatitis panel negative. Will need follow up outpatient with primary care physician. DS: Summary Hospital Course Reason for hospitalization: Atrial flutter Hospital Course: 62M with a past medical history of chronic obstructive pulmonary disease, atrial fibrillation, hyperlipidemia, hypertension who presented to the emergency department due to palpitations after having nausea and vomiting preventing him from keeping down his medications. Patient also had intermittent, nonradiating midsternal chest pain. Patient placed on diltiazem drip. Cardiology was consulted. The patient did not go back in to normal sinus rhythm on the diltiazem drip, so a cardioversion was done by Cardiology. Also, patient hemoglobin a1c was checked and found to be 9.3. Patient diagnosed with diabetes. New diagnosis discussed with patient and his . Recommended follow up with primary care physician within a week of discharge. Started metformin 500 mg BID. Patient discharged to home. Time Spent with Patient Time attestation: Total time spent providing and/or coordinating discharge services: Exam Narrative: GENERAL: NAD, cooperative HEENT: Normocephalic, atraumatic, anicteric, nares clear, oropharynx moist and clear, dentition normal NECK: Supple CV: regular rate RESP: CTAB, Normal work of breathing. Abdomen: Soft, non-tender, non-distended EXTREMITIES: Warm and well perfused, no clubbing, cyanosis, or edema. SKIN: warm, dry and intact. NEURO: CN 2-12 grossly intact. DS: Data Data Completed and Pending Labs on day of discharge: Labs from last 24 hours 02/08/22 02/08/22 02/08/22 12:35 05:00 05:00 WBC RBC Hgb Hct MCV MCH MCHC RDW Plt Count MPV Immature Gran % (Auto) Neut % (Auto) Lymph % (Auto) [place] % (Auto) Eos % (Auto) Baso % (Auto) Lymph # (Auto) [place] # (Auto) Eos # (Auto) Baso # (Auto) Abs Immat Gran (auto) Absolute Neuts (auto) Absolute Nucleated RBC Nucleated RBC % Sodium 138 Potassium 4.0 Chloride 105 Carbon Dioxide 23 Anion Gap 10 BUN 12 Creatinine 0.80 Estim Creat Clear Calc 77 Estimated GFR > 60 Glucose 185 H POC Capillary Glucose
== END 2022-02-08 17:00 | disposition home or self-care (01) | DRG 310 ==
LOC: ANHED 13:33 → ANHIMU 15:00
PROVIDERS: Internal Medicine; Physician Assistant; Admitting Provider Internal Medicine; Emergency Provider Emergency Medicine; PCP Family Medicine; Visit Provider Family Medicine
PROC: 5A2204Z Restoration of Cardiac Rhythm, Single (ICD-10-PCS; CPT 93312; principal; 2022-02-08 08:30)
PROC: 5A2204Z Restoration of Cardiac Rhythm, Single (ICD-10-PCS; 2022-02-08 08:30)
DX: I48.92 Unspecified atrial flutter (principal); I48.0 Paroxysmal atrial fibrillation; J44.9 Chronic obstructive pulmonary disease, unspecified; I10 Essential (primary) hypertension; E78.2 Mixed hyperlipidemia; E53.8 Deficiency of other specified B group vitamins; E11.9 Type 2 diabetes mellitus without complications; E55.9 Vitamin D deficiency, unspecified; R79.89 Other specified abnormal findings of blood chemistry; Z20.822 Contact with and (suspected) exposure to COVID-19; Z79.01 Long term (current) use of anticoagulants; Z86.73 Personal history of transient ischemic attack (TIA), and cerebral infarction without residual deficits; Z87.891 Personal history of nicotine dependence; Z23 Encounter for immunization
CPT/HCPCS: 36415; 71046; 80048; 80053; 80074; 82948; 83036; 83690; 83735; 84443; 84484; 85025; 85027; 85610; 85730; 90471; 90694; 92960; 93005; 93306; 93312; 93320; 93325; 94640; 96365; 96366; 99285; A9270; C9803; G0008; G0378; J2250; J3010; J7030; J7040; Q9957; U0003; U0005

== ENCOUNTER 2022-09-02 09:57 | Outpatient (CLI) | payer MEDICARE, OTHER, SELFPAY ==
[2022-09-02 14:47] LABS: Alanine Aminotransferase 26 U/L (6-50); Albumin Level 4.2 g/dL (3.5-5.1); Alkaline Phosphatase 98 U/L (38-126); Anion Gap 7 mmol/L (8-16); Aspartate Amino Transferase 35 U/L (17-59); Bilirubin,Total 0.6 mg/dL (0.2-1.3); Blood Urea Nitrogen 20 mg/dL (9-20); Calcium 8.8 mg/dL (8.4-10.2); Carbon Dioxide 28 mmol/L (22-30); Chloride 102 mmol/L (98-107); Estimated Glomerular Filt Rate > 60; Glucose 103 mg/dL (65-110); Potassium 4.4 mmol/L (3.4-5.0); Sodium 137 mmol/L (137-145)
== END 2022-09-02 09:58 | disposition home or self-care (01) ==
LOC: ANHGOSHLAB 09:59
PROVIDERS: PCP Family Medicine
DX: Z79.899 Other long term (current) drug therapy (principal)
CPT/HCPCS: 36415; 80053

== ENCOUNTER 2022-09-08 15:19 | Outpatient (CLI) | payer MEDICARE, OTHER, SELFPAY ==
--- NOTE | ~2022-09-08 | XR_ITS ---
XR chest 2V 09/08/2022 15:40 Indication: Cough. COPD. Procedure: 2 view chest Comparison: Comparison to multiple prior studies sequentially, with oldest reviewed study dated 06/02. Findings: Heart size normal. Prominent bilateral nipple shadows. No focal air space disease, pulmonar y edema, pleural effusion or suspected pneumothorax. The lungs are hyperinflated which is consistent with, but not diagnostic of chronic obstructive pulmonary disease. Impression: 1: No acute cardiopulmonary disease. Reviewed, dictated and finalized at location L. Impression: 1: No acute cardiopulmonary disease.
== END 2022-09-08 15:20 | disposition home or self-care (01) ==
LOC: ANHIMG 15:22
PROVIDERS: PCP Family Medicine; Visit Provider Nurse Practitioner Family
DX: R06.00 Dyspnea, unspecified (principal); R53.83 Other fatigue; R05.9 Cough, unspecified
CPT/HCPCS: 71046

== ENCOUNTER 2022-09-09 10:07 | Outpatient (CLI) | payer MEDICARE, OTHER, SELFPAY ==
[2022-09-09 11:47] LABS: Cholesterol 127 mg/dL (0-200); HDL Direct 40 mg/dL; Triglycerides 132 mg/dL (<150)
[2022-09-09 11:58] LABS: LDL Cholesterol Direct 66 mg/dL
[2022-09-09 12:17] LABS: Creatinine Urine 102.1 mg/dL
[2022-09-09 12:17] LABS: Prostate Specific Antigen 0.8 ng/mL (< OR = 4.0)
[2022-09-09 12:46] LABS: MALB Creatinine Ratio < 5.9 mg/g (0-30); Microalbumin Urine Random < 6.0 mg/L (0-16.7)
== END 2022-09-09 10:08 | disposition home or self-care (01) ==
LOC: ANHGOSHLAB 10:09
PROVIDERS: PCP Family Medicine; Visit Provider Physician Assistant Medical
DX: E11.9 Type 2 diabetes mellitus without complications (principal); E78.2 Mixed hyperlipidemia; I10 Essential (primary) hypertension; Z12.5 Encounter for screening for malignant neoplasm of prostate
CPT/HCPCS: 36415; 80061; 82043; 84153; G0103

== ENCOUNTER 2022-10-03 15:51 | Outpatient (CLI) | payer MEDICARE, OTHER, SELFPAY ==
[2022-10-03 18:44] LABS: Basophils Percent Auto 0.6 % (0.2-1.2); Eosinophils Absolute Auto 0.3 K/mm3 (0-0.3); Eosinophils Percent Auto 4.9 % (0-4.4); Hematocrit 47.6 % (42.0-52.0); Hemoglobin 15.9 g/dL (14.0-18.0); Immature Granulocyte Absolute 0.02 K/mm3 (0.00-0.031); Immature Granulocyte Percent A 0.3 % (0-0.5); Lymphocytes Absolute Auto 1.67 K/mm3 (0.9-3.2); Lymphocytes Percent Auto 24.8 % (18.3-44.2); Mean Corpuscular HGB Conc 33.4 g/dl (32-36); Mean Corpuscular Hemoglobin 31.4 pg (26-34); Mean Corpuscular Volume 93.9 fl (80-100); Mean Platelet Volume 9.9 fl (7.4-10.4); Monocytes Absolute Auto 0.7 K/mm3 (0.1-0.6); Monocytes Percent Auto 10.5 % (2.6-8.5); Neutrophils Percent Auto 58.9 % (45.5-73.1); Platelet Count Result 161 k/mm3 (150-375); Red Blood Count 5.07 M/mm3 (4.6-6.20); Red Cell Distribution Width 12.2 % (11.5-14.5); White Blood Count 6.7 K/mm3 (4.5-10.0)
== END 2022-10-03 15:52 | disposition home or self-care (01) ==
LOC: ANHGOSHLAB 15:52
PROVIDERS: PCP Family Medicine; Visit Provider Nurse Practitioner Family
DX: R53.83 Other fatigue (principal)
CPT/HCPCS: 36415; 85025

== ENCOUNTER 2022-12-09 08:33 | Outpatient (CLI) | payer MEDICARE, OTHER, SELFPAY ==
[2022-12-09 17:17] LABS: Hemoglobin A1C 6.4 % (<5.7)
== END 2022-12-09 08:34 | disposition home or self-care (01) ==
PROVIDERS: PCP Family Medicine; Visit Provider Physician Assistant Medical
DX: E11.9 Type 2 diabetes mellitus without complications (principal)
CPT/HCPCS: 36415; 83036

== ENCOUNTER 2022-12-10 12:53 | Emergency (ER) | payer MEDICARE, OTHER, SELFPAY ==
[2022-12-10 13:00] VITALS: BP 117/78; PULSE 86; RESP 20; TEMP 36.6; O2SAT 95
--- NOTE | 2022-12-10 13:10 | ED.URI ---
HPI - URI/Sore Throat General Chief Complaint: Upper Respiratory Infection Stated Complaint: Coughing Brown Mucous History of Present Illness HPI Narrative: PATIENT PRESENTS WITH A COUGH NO SHORTNESS OF BREATH AND NO CHEST PAIN PATIENT STATES HE SAW HIS PCP YESTERDAY AND WAS FINE. HE STARTED WITH COLD CHILLS AND COUGH LAST NIGHT NO SHORTNESS OF BREATH AND NO CHEST PAIN. NO FEVER PATIENT STATES HE GETS LIKE THIS EVERY YEAR AND HAS TO HAVE STEROIDS AND ANTIBIOTIC Related Data Home Medications Medication Instructions Recorded Confirmed diltiazem HCl 240 mg capsule,24 240 mg PO DAILY 04/04/19 12/09/22 hr,extended release flecainide 100 mg tablet 100 mg PO Q12H 04/04/19 12/09/22 rivaroxaban 20 mg tablet (Xarelto) 20 mg PO DAILY 04/04/19 12/09/22 albuterol sulfate 2.5 mg/3 mL 2.5 mg inhalation DAILY 02/06/22 12/09/22 (0.083 %) solution for nebulization atorvastatin 40 mg tablet (Lipitor) 40 mg PO HS 02/06/22 12/09/22 Allergies Allergy/AdvReac Type Severity Reaction Status Date / Time hydromorphone Allergy Intermediate HIVES, Verified 12/09/22 07:47 ITCHING, SWELLING horseradish Allergy Mild Hives Verified 12/09/22 07:47 Penicillins Allergy Unknown Loss of Verified 12/09/22 07:47 Consciousness phenytoin Allergy Unknown Unknown Verified 12/09/22 07:47 Review of Systems Review of Systems: CONSTITUTIONAL: DENIES CHILLS, OR SWEATS. REPORTS FEVER AND GENERALIZED BODY ACHES EYES: DENIES VISUAL CHANGES, REDNESS, OR DISCHARGE. ENT: DENIES OTALGIA. REPORTS NASAL CONGESTION RUNNY NOSE AND SORE THROAT CARDIOVASCULAR: DENIES CHEST PAIN, PALPITATIONS, OR EDEMA. RESPIRATORY: DENIES DYSPNEA. REPORTS OCCASIONAL COUGH GASTROINTESTINAL: DENIES ABDOMINAL PAIN, NAUSEA, VOMITING, OR DIARRHEA. GENITOURINARY: DENIES DYSURIA OR HEMATURIA. SKIN: DENIES RASH OR ITCHING. MUSCULOSKELETAL: DENIES BACK PAIN, JOINT PAIN, OR MYALGIA. REPORTS GENERALIZED BODY ACHES NEUROLOGIC: DENIES HEADACHE, NUMBNESS, OR WEAKNESS. PSYCHIATRIC: DENIES ANXIETY OR DEPRESSION. [facility] Past Medical History Medical History Chronic anticoagulation Chronic obstructive pulmonary disease COVID (~12/2021) Essential (primary) hypertension History of compression fracture of spine Mixed hyperlipidemia Paroxysmal atrial fibrillation Transient ischemic attack Vitamin B12 deficiency Vitamin D deficiency Surgical History Surgical History History of cardiac catheterization History of cholecystectomy History of hernia repair History of loop recorder History of orthopedic surgery ORIF left hand fracture. Bilateral ulnar nerve release. Family History Family History Mother Family history of diabetes mellitus in first degree relative Family history of chronic obstructive pulmonary disease, Onset Age: 83 COPD (chronic obstructive pulmonary disease) Sibling Family history of diabetes mellitus in first degree relative Cerebrovascular accident Father Family history of coronary artery disease Family history of congestive heart failure, Onset Age: 43 COPD (chronic obstructive pulmonary disease) Black lung Social History Social History Social History: Surrogate medical decision maker: Cortney Redman, spouse. Code status: Full code. Smoking packs per day: 2 Smoking cigarettes per day: 40.0 Years smoked: 27 Smoking pack-years: 54.00 Smoking status: Former smoker Tobacco type: cigarettes Second hand tobacco smoke exposure: Yes (childhood exposure. Family smoked inside home.) Smoking end date: 04/17/93 Alcohol intake: never Substance use: never Substance use type: does not use Lack of Transportation: No Lack of Food: Never True Current Housing: I Have Housing Concerned About Future Housin
== END 2022-12-10 13:26 | disposition home or self-care (01) ==
PROVIDERS: Emergency Provider Nurse Practitioner Family
DX: J44.0 Chronic obstructive pulmonary disease with (acute) lower respiratory infection (principal); J20.9 Acute bronchitis, unspecified; Z87.891 Personal history of nicotine dependence; I10 Essential (primary) hypertension; E78.2 Mixed hyperlipidemia; I48.0 Paroxysmal atrial fibrillation; Z79.01 Long term (current) use of anticoagulants; Z86.73 Personal history of transient ischemic attack (TIA), and cerebral infarction without residual deficits; Z86.16 Personal history of COVID-19
CPT/HCPCS: 99213; G0463

== ENCOUNTER 2023-06-19 09:59 | Outpatient (CLI) | payer MEDICARE, OTHER, SELFPAY ==
--- NOTE | ~2023-06-19 | XR_ITS ---
EXAMINATION: XR chest 2V DATE: 06/19/2023 10:12 INDICATION: Wheezing. TECHNIQUE: Frontal and lateral views of the chest were obtained. COMPARISON: Chest 2 views 09/08/22, chest CT 05/27/2021 FINDINGS: There are lucencies in the lungs, consistent with emphysema. There are airspace opacities a t left lung base. No pleural effusion or pneumothorax. The heart size is normal. An implant overlying the heart is likely an interatrial closure device. IMPRESSION: 1. Airspace opacities at left lung base, consistent with atelectasis versus pneumonia. 2. Emphysema. Reviewed, dictated and finalized at location E. LE SPECIALIST IMPRESSION: 1. Airspace opacities at left lung base, consistent with atelectasis versus pne umonia. 2. Emphysema.
== END 2023-06-19 10:00 | disposition home or self-care (01) ==
PROVIDERS: PCP Family Medicine; Visit Provider Physician Assistant Medical
DX: R06.2 Wheezing (principal); J20.9 Acute bronchitis, unspecified; J43.9 Emphysema, unspecified
CPT/HCPCS: 71046

== ENCOUNTER 2023-11-29 12:28 | Outpatient (CLI) | payer MEDICARE, OTHER, SELFPAY ==
--- NOTE | ~2023-11-29 | US_ITS ---
EXAMINATION: US carotid duplex BI DATE: 11/29/2023 14:08 INDICATION: Dizziness and giddiness TECHNIQUE: Grayscale, color Doppler, and pulsed Doppler images of the cervical carotid arteries were obtained. The degree of vessel stenosis is placed in one of the following categories: normal, <50%, 5 0-69%, >=70% but less than near-occlusion, near-occlusion, or total occlusion. Note that percent sten osis relative to normal distal artery lumen diameter is indirectly measured from velocity measurement s as described by Brendan, et al. Radiology 2003; [id number]. Notes: Normal: Peak systolic velocity <125 centimeters/sec and no plaque <50%. Peak systolic velocity <125 ( EDV <40; ICA/CCA PSV ratio <2.0; used these factors only a tandem lesions or low cardiac output or co ntralateral disease) 50-69 %: PSV 125-230 (EDV 40-100; ratio 2-4) >= 70% but less than near occlusion: PSV greater than 230 (EDV > 100; ratio> 4.0) Near Occlusion: PSV that is variable; markedly narrowed lumen Occlusion: Absent flow on color/spectral Doppler and no lumen on alfaro scale. COMPARISON: None. FINDINGS: RIGHT: The right common carotid artery (CCA) peak systolic velocity (PSV) is 67 cm/s. The right internal car otid artery (ICA) PSV is 69 cm/s. The right ICA end-diastolic velocity (EDV) is 19 cm/s. The right IC A/CCA PSV ratio is 1.0. The external carotid artery (ECA) PSV is 118 cm/s. There is antegrade flow in the right vertebral artery. LEFT: The left CCA PSV is 71 cm/s. The left ICA PSV is 71 cm/s. The left ICA EDV is 26 cm/s. The left ICA/C CA PSV ratio is 1.0. The ECA PSV is 125 cm/s. There is antegrade flow in the left vertebral artery. IMPRESSION: 1. Less than 50% stenosis in the right internal carotid artery by sonographic criteria. 2. Less than 50% stenosis in the left internal carotid artery by sonographic criteria. Reviewed, dictated and finalized at location B. IMPRESSION: 1. Less than 50% stenosis in the right internal carotid artery by sonographic c catherine. 2. Less than 50% stenosis in the left internal carotid artery by sonographic cr neftali.
== END 2023-11-29 12:29 | disposition home or self-care (01) ==
PROVIDERS: PCP Family Medicine; Visit Provider Nurse Practitioner Family
DX: R42 Dizziness and giddiness (principal)
CPT/HCPCS: 93880

== ENCOUNTER 2024-04-12 10:50 | Emergency (ER) | payer MEDICARE, OTHER, SELFPAY ==
[2024-04-12] VITALS (13 sets, daily range): BP systolic 121–149; BP diastolic 66–82; PULSE 68–97; RESP 15–27; TEMP 36.6–36.9; O2SAT 93–97
--- NOTE | ~2024-04-12 | XR_ITS ---
EXAMINATION: XR chest 1V DATE: 04/12/2024 14:00 INDICATION: Cough and dyspnea TECHNIQUE: frontal view of the chest was obtained. COMPARISON: Chest radiograph dated 06/19/23 and 09/08/[address] dated 05/27/2021 FINDINGS: Hyperexpansion of lungs with increased lucency and architectural distortion in the upper lung zones c onsistent with emphysema better appreciated on prior CT. Opacities at the left lung base which appear s to correspond to a small left pericardial fat pad and associated mild lingular atelectasis/scarring . No pulmonary edema, pleural effusion or pneumothorax. Heart size is normal. Again seen is a likely Amplatz type ASD closure device. IMPRESSION: 1. Emphysema with opacities at the left lung base and favor mild lingular atelectasis/scarring along side a paracardial fat pad over pneumonia. Reviewed, dictated and finalized at location B. ATTENDANT IMPRESSION: 1. Emphysema with opacities at the left lung base and favor mild lingular atele ctasis/scarring along side a paracardial fat pad over pneumonia.
--- NOTE | 2024-04-12 12:52 | ED.SOB ---
HPI - SOB/Dyspnea General Chief Complaint: Shortness of Breath/Dyspnea <Sandoval Caban PA-C - Last Filed: 04/12/24 12:58> Stated Complaint: Cough, shortness of breath <Sandoval Caban PA-C - Last Filed: 04/12/24 12:58> Time Seen by Provider: 04/12/24 15:27 <Sandoval Caban PA-C - Last Filed: 04/12/24 12:58> Focused HPI:This is a 68-year-old male who presents to the ED for possible COPD exacerbation. States that he usually gets exacerbations around this time here. States for the last day or so he has had increased cough with sputum production which is abnormal. Reports that he is becoming winded when going across the room. States he has been feeling fine over the last few weeks and was able to go hunting recently. Symptoms really got bad over the past 24 hours. GENERAL: Well-appearing, well-nourished, and in no acute distress. HEAD: Normocephalic, atraumatic. CHEST: Clear to auscultation. No respiratory distress. HEART: Regular rate and rhythm. NEURO: Alert and oriented x3. Patient screened in triage and initial orders placed. Additional care and disposition to be based upon diagnostic testing and treatment. <Sandoval Caban PA-C - Last Filed: 04/12/24 12:58> Source: patient <Sandoval Caban PA-C - Last Filed: 04/12/24 12:58> Mode of arrival: ambulatory <Sandoval Caban PA-C - Last Filed: 04/12/24 12:58> Limitations: no limitations <Sandoval Caban PA-C - Last Filed: 04/12/24 12:58> History of Present Illness HPI Narrative: 68-year-old with a history of COPD, hypertension, diabetes here with the complaints of cough which is productive in nature with dark brown color sputum also states that he had fever. He denies any chest pain or shortness of breath. States he has been using inhalers for his COPD. <Derik Lisa MD - Last Filed: 04/12/24 17:35> MD elicited complaint: cough <Derik Lisa MD - Last Filed: 04/12/24 17:35> Pertinent past history: COPD <Derik Lisa MD - Last Filed: 04/12/24 17:35> Onset (ago): day(s) (2) <Derik Lisa MD - Last Filed: 04/12/24 17:35> Timing: constant <Derik Lisa MD - Last Filed: 04/12/24 17:35> Severity: moderate <Derik Lisa MD - Last Filed: 04/12/24 17:35> Exacerbating factors: nothing <Derik Lisa MD - Last Filed: 04/12/24 17:35> Relieving factors: nothing <Derik Lisa MD - Last Filed: 04/12/24 17:35> Known history of: COPD <Derik Lisa MD - Last Filed: 04/12/24 17:35> Associated symptoms: cough and sputum production <Derik Lisa MD - Last Filed: 04/12/24 17:35> Related Data Home oxygen amount: none <Derik Lisa MD - Last Filed: 04/12/24 17:35> Home Medications: Home Medications ?Medication ?Instructions ?Recorded ?Confirmed ?Last Taken ?Type diltiazem HCl 240 mg capsule,24 240 mg PO DAILY 04/04/19 02/28/24 02/06/22 08:00 History hr,extended release flecainide 100 mg tablet 100 mg PO Q12H 04/04/19 02/28/24 02/06/22 08:00 History albuterol sulfate 2.5 mg/3 mL 2.5 mg inhalation DAILY 02/06/22 02/28/24 Unknown History (0.083 %) solution for nebulization atorvastatin 40 mg tablet (Lipitor) 40 mg PO HS 02/06/22 02/28/24 02/05/22 21:00 History aspirin 81 mg tablet,delayed 81 mg PO DAILY 06/19/23 02/28/24 Unknown History release (Adult Aspirin Regimen) clopidogrel 75 mg tablet (Plavix) 75 mg PO DAILY 06/19/23 02/28/24 Unknown History <Sandoval Caban PA-C - Last Filed: 04/12/24 12:58> Allergies/Adverse Reactions: Allergies Allergy/AdvReac Type Severity Reaction Status Date / Time hydromorphone Allergy Intermediate HIVES, Verified 02/28/24 10:20 ITCHING, SWELLING horseradish Allergy Mild Hives Verified 02/28/24 10:20 Penicillins Allergy Unknown Loss of Verified 02/28/24 10:20 Consciousness phenytoin Allergy Unknown Unknown Verified 02/28/24 10:20 <Sandoval Caban PA-C - Last Filed: 04/12/24 12:58> Review of Systems Review of Systems: All systems reviewed & are unremarkable except as noted in HPI and below <Derik Lisa MD - Last Filed: 04/12/24 17:35> Constitutional: Constitutional: Reports no additional constitutional complaints <Derik Lisa MD - Last Filed: 04/12/24 17:35> Eyes: Eyes: Reports no additional eye complaints <Derik Lisa MD - Last Filed: 04/12/24 17:35> ENT: Reports system reviewed and no additional complaints, except as documented <Derik Lisa MD - Last Filed: 04/12/24 17:35> Cardiovascular: Cardiovascular: Reports no additional cardiovascular complaints <Derik Lisa MD - Last Filed: 04/12/24 17:35> Respiratory: Respiratory: Reports as per HPI <Derik Lisa MD - Last Filed: 04/12/24 17:35> Musculoskeletal: Musculoskeletal: Reports no additional musculoskeletal complaints <Derik Lisa MD - Last Filed: 04/12/24 17:35> Integumentary/Breasts: Skin/Breast: Reports system reviewed and no additional complaints, except as docu <Derik Lisa MD - Last Filed: 04/12/24 17:35> PMFSH Past Medical History Medical History: Medical History Paroxysmal atrial fibrillation Chronic anticoagulation Transient ischemic attack Vitamin D deficiency Chronic obstructive pulmonary disease Vitamin B12 deficiency COVID (~12/2021) History of compression fracture of spine Essential (primary) hypertension Mixed hyperlipidemia <Sandoval Caban PA-C - Last Filed: 04/12/24 12:58> Surgical History Surgical History: Surgical History History of orthopedic surgery ORIF left hand fracture. Bilateral ulnar nerve release. History of hernia repair History of cholecystectomy History of cardiac catheterization History of loop recorder <BIRGIT Ballard Last Filed: 04/12/24 12:58> Family History Family History: Family History Mother Family history of diabetes mellitus in first degree relative Family history of chronic obstructive pulmonary disease, Onset Age: 83 COPD (chronic obstructive pulmonary disease) Sibling Family history of diabetes mellitus in first degree relative Cerebrovascular accident Father Family history of coronary artery disease Family history of congestive heart failure, Onset Age: 43 COPD (chronic obstructive pulmonary disease) Black lung Sibling Diabetes mellitus <BIRGIT Ballard Last Filed: 04/12/24 12:58> Social History Social History: Social History Social History: Surrogate medical decision maker: Cortney Redman, spouse. Code status: Full code. Smoking packs per day: 2 Smoking cigarettes per day: 40.0 Years smoked: 27 Smoking pack-years: 54.00 Smoking status: Former smoker Tobacco type: cigarettes Second hand tobacco smoke exposure: Yes (childhood exposure. 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 Gender identity (if verbalized by the patient): Male Spiritual care concerns: No <BIRGIT Ballard Last Filed: 04/12/24 12:58> Exam Narrative: GENERAL: Well-appearing, well-nourished, and in no acute distress. HEAD: Normocephalic, atraumatic. EYES: PERRLA and EOMI. ENT: Nares clear, no rhinorrhea or epistaxis. Mucous membranes moist. NECK: Supple. CHEST: mild wheeze on auscultation. No respiratory distress. HEART: Regular rate and rhythm. No murmur heard. Normal peripheral pulses. ABDOMEN: Soft, nontender, nondistended, normal active bowel sounds. EXTREMITIES: Normal range of motion. No edema. SKIN: Warm, dry, no rash. NEURO: No focal deficits. Alert and oriented x3. PSYCH: Normal mood and affect. <Derik Lisa MD - Last Filed: 04/12/24 17:35> Course Course Emergency Course: Notified patient and his about his lab work, chest x-ray findings. Recommended him to take antibiotic as prescribed. , follow-up with his primary doctor. He does feel comfortable going home. <Derik Lisa MD - Last Filed: 04/12/24 17:35> Vital Signs Vital signs: Vital Signs Temperature 36.6 C 04/12/24 11:07 Pulse Rate 97 04/12/24 11:07 Respiratory Rate 20 04/12/24 11:07 Blood Pressure 131/75 04/12/24 11:07 Pulse Oximetry 97 04/12/24 11:07 Oxygen Delivery Room Air 04/12/24 11:07 Temperature 36.6 C 04/12/24 11:07 Pulse Rate 72 04/12/24 16:15 Respiratory Rate 22 H 04/12/24 16:15 Blood Pressure 125/66 04/12/24 16:15 Pulse Oximetry 94 04/12/24 16:15 Oxygen Delivery Room Air 04/12/24 15:35 <Sandoval Caban PA-C - Last Filed: 04/12/24 12:58> Vital Signs Temperature 36.6 C 04/12/24 11:07 Pulse Rate 97 04/12/24 11:07 Respiratory Rate 20 04/12/24 11:07 Blood Pressure 131/75 04/12/24 11:07 Pulse Oximetry 97 04/12/24 11:07 Oxygen Delivery Room Air 04/12/24 11:07 Temperature 36.6 C 04/12/24 11:07 Pulse Rate 72 04/12/24 16:15 Respiratory Rate 22 H 04/12/24 16:15 Blood Pressure 125/66 04/12/24 16:15 Pulse Oximetry 94 04/12/24 16:15 Oxygen Delivery Room Air 04/12/24 15:35 <Derik Lisa MD - Last Filed: 04/12/24 17:35> MDM - SOB/Dyspnea Differential Diagnosis Differential diagnosis: Likely acute exacerbation of chronic obstructive airways disease, congestive heart failure and community acquired pneumonia <Derik Lisa MD - Last Filed: 04/12/24 17:35> Medical Records Attestation: I reviewed the patient's medical records. <Derik Lisa MD - Last Filed: 04/12/24 17:35> Lab Data Attestation: I reviewed the patient's lab results. <Derik Lisa MD - Last Filed: 04/12/24 17:35> Result diagrams: 04/12/24 15:35 04/12/24 15:35 <Sandoval Caban PA-C - Last Filed: 04/12/24 12:58> Labs: Lab Results 04/12/24 Range/Units 15:35 WBC 9.1 (4.5-10.0) K/mm3 RBC 5.02 (4.6-6.20) M/mm3 Hgb 15.8 (14.0-18.0) g/dL Hct 47.3 (42.0-52.0) % MCV 94.2 (80-100) fl MCH 31.5 (26-34) pg MCHC 33.4 (32-36) g/dl RDW 12.0 (11.5-14.5) % Plt Count 161 (150-375) k/mm3 MPV 9.9 (7.4-10.4) fl Immature Gran % (Auto) 0.3 (0-0.5) % Neut % (Auto) 69.7 (45.5-73.1) % Lymph % (Auto) 16.2 L (18.3-44.2) % [place] % (Auto) 12.8 H (2.6-8.5) % Eos % (Auto) 0.8 (0-4.4) % Baso % (Auto) 0.2 (0.2-1.2) % Lymph # (Auto) 1.47 (0.9-3.2) K/mm3 [place] # (Auto) 1.2 H (0.1-0.6) K/mm3 Eos # (Auto) 0.1 (0-0.3) K/mm3 Baso # (Auto) 0.0 (0.0-0.1) K/mm3 Abs Immat Gran (auto) 0.03 (0.00-0.031) K/mm3 Absolute Neuts (auto) 6.3 (1.3-6.7) K/mm3 Absolute Nucleated RBC 0.000 (0.0-0.012) K/mm3 Nucleated RBC % 0.0 (0.0-0.2) % PT 14.1 (11.1-14.7) Seconds INR 1.1 APTT 24.7 (22.3-36.8) Seconds Sodium 135 L (137-145) mmol/L Potassium 4.2 (3.4-5.0) mmol/L Chloride 105 (98-107) mmol/L Carbon Dioxide 24 (22-30) mmol/L Anion Gap 6 (4-12) mmol/L BUN 15 D (9-20) mg/dL Creatinine 0.90 (0.7-1.3) mg/dL Estim Creat Clear Calc 65 ml/min Estimated GFR > 60 (59 - ) Glucose 120 H (65-110) mg/dL Calcium 9.1 (8.4-10.2) mg/dL Total Bilirubin 1.1 (0.2-1.3) mg/dL AST 64 H (17-59) U/L ALT 97 H (6-50) U/L Alkaline Phosphatase 115 (38-126) U/L Troponin I < 0.012 (0.000-0.034) ng/mL Total Protein 7.0 (6.3-8.2) g/dL Albumin 4.2 (3.5-5.1) g/dL <Sandoval Caban PA-C - Last Filed: 04/12/24 12:58> Lab Results 04/12/24 Range/Units 15:35 WBC 9.1 (4.5-10.0) K/mm3 RBC 5.02 (4.6-6.20) M/mm3 Hgb 15.8 (14.0-18.0) g/dL Hct 47.3 (42.0-52.0) % MCV 94.2 (80-100) fl MCH 31.5 (26-34) pg MCHC 33.4 (32-36) g/dl RDW 12.0 (11.5-14.5) % Plt Count 161 (150-375) k/mm3 MPV 9.9 (7.4-10.4) fl Immature Gran % (Auto) 0.3 (0-0.5) % Neut % (Auto) 69.7 (45.5-73.1) % Lymph % (Auto) 16.2 L (18.3-44.2) % [place] % (Auto) 12.8 H (2.6-8.5) % Eos % (Auto) 0.8 (0-4.4) % Baso % (Auto) 0.2 (0.2-1.2) % Lymph # (Auto) 1.47 (0.9-3.2) K/mm3 [place] # (Auto) 1.2 H (0.1-0.6) K/mm3 Eos # (Auto) 0.1 (0-0.3) K/mm3 Baso # (Auto) 0.0 (0.0-0.1) K/mm3 Abs Immat Gran (auto) 0.03 (0.00-0.031) K/mm3 Absolute Neuts (auto) 6.3 (1.3-6.7) K/mm3 Absolute Nucleated RBC 0.000 (0.0-0.012) K/mm3 Nucleated RBC % 0.0 (0.0-0.2) % PT 14.1 (11.1-14.7) Seconds INR 1.1 APTT 24.7 (22.3-36.8) Seconds Sodium 135 L (137-145) mmol/L Potassium 4.2 (3.4-5.0) mmol/L Chloride 105 (98-107) mmol/L Carbon Dioxide 24 (22-30) mmol/L Anion Gap 6 (4-12) mmol/L BUN 15 D (9-20) mg/dL Creatinine 0.90 (0.7-1.3) mg/dL Estim Creat Clear Calc 65 ml/min Estimated GFR > 60 (59 - ) Glucose 120 H (65-110) mg/dL Calcium 9.1 (8.4-10.2) mg/dL Total Bilirubin 1.1 (0.2-1.3) mg/dL AST 64 H (17-59) U/L ALT 97 H (6-50) U/L Alkaline Phosphatase 115 (38-126) U/L Troponin I < 0.012 (0.000-0.034) ng/mL Total Protein 7.0 (6.3-8.2) g/dL Albumin 4.2 (3.5-5.1) g/dL <Derik Lias MD - Last Filed: 04/12/24 17:35> Imaging Data Radiologist's impression: ITS Impressions Chest X-Ray 04/12/24 14:09 IMPRESSION: 1. Emphysema with opacities at the left lung base and favor mild lingular atelectasis/scarring along side a paracardial fat pad over pneumonia. <Derik Lisa MD - Last Filed: 04/12/24 17:35> ECG Data EKG #1: ECG completion date: 04/12/24 <Derik Lisa MD - Last Filed: 04/12/24 17:35> ECG completion time: 15:42 <Derik Lisa MD - Last Filed: 04/12/24 17:35> EKG Interpretation: normal rate (74), no ectopy, non-specific ST changes, normal QT and NL axis <Derik Lisa MD - Last Filed: 04/12/24 17:35> Discharge Plan Discharge Clinical Impression: Pneumonia Qualifiers: Pneumonia type: due to unspecified organism Laterality: left Lung location: unspecified part of lung Qualified Code(s): J18.9 - Pneumonia, unspecified organism <Sandoval Caban PA-C - Last Filed: 04/12/24 12:58> Patient Disposition: Home, Self-Care <Sandoval Caban PA-C - Last Filed: 04/12/24 12:58> Condition: Stable <Sandoval Caban PA-C - Last Filed: 04/12/24 12:58> Instructions: Antibiotic Form, Bacterial Pneumonia (DC) <Sandoval Caban PA-C - Last Filed: 04/12/24 12:58> Additional Instructions: continue home medication take antibiotic as prescribed, follow not yet primary doctor if symptoms get worse or return to the ER. <Sandoval Caban PA-C - Last Filed: 04/12/24 12:58> Patient Language: Maori <Sandoval Caban PA-C - Last Filed: 04/12/24 12:58> Prescriptions: New doxycycline hyclate 100 mg capsule 100 mg PO BID Qty: 14 0RF doxycycline hyclate 100 mg tablet 100 mg PO BID 7 Days Qty: 14 0RF No Action diltiazem HCl 240 mg capsule,extended release 24 hr 240 mg PO DAILY flecainide 100 mg tablet 100 mg PO Q12H clopidogrel [Plavix] 75 mg tablet 75 mg PO DAILY aspirin [Adult Aspirin Regimen] 81 mg tablet,delayed release (DR/EC) 81 mg PO DAILY albuterol sulfate 2.5 mg /3 mL (0.083 %) Solution For Nebulization 2.5 mg inhalation DAILY atorvastatin [Lipitor] 40 mg tablet 40 mg PO HS albuterol sulfate 90 mcg/actuation HFA aerosol inhaler 2 puff INHALATION QID PRN (Reason: Shortness Of Breath Or Wheezing) Qty: 8.5 2RF Trelegy Ellipta 200-62.5-25 mcg blister with device 1 inh inhalation Q24H 90 Days Qty: 180 3RF Rx Instructions: Rinse and spit. azelastine 137 mcg (0.1 %) spray,non-aerosol 1 spray intranasal Q12H 90 Days Qty: 90 3RF Rx Instructions: administer into each nostril metformin 500 mg tablet See Rx Instructions .ROUTE .COMPLEX Qty: 90 3RF Dose Instruction: TAKE 1 TABLET TWICE A DAY Rx Instructions: TAKE 1 TABLET once A DAY <Sandoval Caban PA-C - Last Filed: 04/12/24 12:58> Follow-up/Referrals: Moody Calle MD [Primary Care Provider] - <Sandoval Caban PA-C - Last Filed: 04/12/24 12:58> Time of Disposition: 17:26 <Sandoval Caban PA-C - Last Filed: 04/12/24 12:58> 17:26 <Derik Lisa MD - Last Filed: 04/12/24 17:35>
--- NOTE | 2024-04-12 12:57 | ECG_ITS ---
Test Date: 2024-04-12 15:42:59 Measurements Intervals [place] Rate: 74 P: 145 MN: 183 QRS: 189 QRSD: 161 T: 46 QT: 424 QTc: 471 Interpretive Statements ECTOPIC ATRIAL RHYTHM INDETERMINATE AXIS RIGHT BUNDLE BRANCH BLOCK [120+ ms QRS DURATION, UPRIGHT V1, 40+ ms S IN I/aVL/V4/V5/V6] ABNORMAL ECG Electronically Signed On 04-12-2024 17:27:53 ANTHROPOLOGY LECTURER by Joshua Vernon M.D.
[2024-04-12 16:41] LABS: Basophils Percent Auto 0.2 % (0.2-1.2); Eosinophils Absolute Auto 0.1 K/mm3 (0-0.3); Eosinophils Percent Auto 0.8 % (0-4.4); Hematocrit 47.3 % (42.0-52.0); Hemoglobin 15.8 g/dL (14.0-18.0); Immature Granulocyte Absolute 0.03 K/mm3 (0.00-0.031); Immature Granulocyte Percent A 0.3 % (0-0.5); Lymphocytes Absolute Auto 1.47 K/mm3 (0.9-3.2); Lymphocytes Percent Auto 16.2 % (18.3-44.2); Mean Corpuscular HGB Conc 33.4 g/dl (32-36); Mean Corpuscular Hemoglobin 31.5 pg (26-34); Mean Corpuscular Volume 94.2 fl (80-100); Mean Platelet Volume 9.9 fl (7.4-10.4); Monocytes Absolute Auto 1.2 K/mm3 (0.1-0.6); Monocytes Percent Auto 12.8 % (2.6-8.5); Neutrophils Absolute Auto 6.3 K/mm3 (1.3-6.7); Neutrophils Percent Auto 69.7 % (45.5-73.1); Platelet Count Result 161 k/mm3 (150-375); Red Blood Count 5.02 M/mm3 (4.6-6.20); White Blood Count 9.1 K/mm3 (4.5-10.0)
[2024-04-12 16:48] LABS: INR 1.1; Partial Thromboplastin Time 24.7 Seconds (22.3-36.8); Prothrombin Time 14.1 Seconds (11.1-14.7)
[2024-04-12 17:01] LABS: Alanine Aminotransferase 97 U/L (6-50); Albumin Level 4.2 g/dL (3.5-5.1); Alkaline Phosphatase 115 U/L (38-126); Anion Gap 6 mmol/L (4-12); Aspartate Amino Transferase 64 U/L (17-59); Bilirubin,Total 1.1 mg/dL (0.2-1.3); Blood Urea Nitrogen 15 mg/dL (9-20); Calcium 9.1 mg/dL (8.4-10.2); Carbon Dioxide 24 mmol/L (22-30); Chloride 105 mmol/L (98-107); Estimated CRCL calculation 65 ml/min; Estimated Glomerular Filt Rate > 60; Glucose 120 mg/dL (65-110); Potassium 4.2 mmol/L (3.4-5.0); Sodium 135 mmol/L (137-145); Troponin I < 0.012 ng/mL (0.000-0.034)
== END 2024-04-12 17:54 | disposition home or self-care (01) ==
PROVIDERS: Physician Assistant; Emergency Provider Family Medicine; PCP Family Medicine
DX: J18.9 Pneumonia, unspecified organism (principal); I10 Essential (primary) hypertension; E11.9 Type 2 diabetes mellitus without complications; Z86.73 Personal history of transient ischemic attack (TIA), and cerebral infarction without residual deficits; I48.0 Paroxysmal atrial fibrillation; Z79.01 Long term (current) use of anticoagulants; J44.9 Chronic obstructive pulmonary disease, unspecified; E55.9 Vitamin D deficiency, unspecified; E78.2 Mixed hyperlipidemia; Z87.891 Personal history of nicotine dependence
CPT/HCPCS: 36415; 71045; 80053; 84484; 85025; 85610; 85730; 93005; 99284

== ENCOUNTER 2024-05-30 09:56 | Outpatient (CLI) | payer MEDICARE, OTHER, SELFPAY ==
--- OUTSIDE RECORDS SUMMARY | 2024-05-30 10:20 | XMS_ITS | Encounter Summary ---
Author Organization [facility] Address [address] [facility] [address] [place] [id number] Care Team Providers Care School Transportation Supervisor Name Role Phone Moody Calle MD Primary Care Provider + [phone] Miscellaneous, Not In File Unavailable Unava ilable Encounter Details Date Type Department Care Team (Late st Contact Info) Description 08/06/2016 Orders Only [facility] ProviderNed MD [address] [place] [id number] Social History Tobacco Use Types Packs/Day Years Used Date Smoking Tobacco: Former Alcohol Use Standard Drinks/Week Comments Yes 0 (1 standard drink = 0.6 oz pur e alcohol) Sex and Gender Information Value Date Recorded Sex Assigned at Not on file 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 Historical Provider [facility] PROCE CRISTINE Final Result * CARDIOLOGY REPORT (08/06/2016) Anatomical Region Laterality Modality Other Narrative 08/06/2016 Ordered by an unspecified provider. 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
--- OUTSIDE RECORDS SUMMARY | 2024-05-30 10:20 | XMS_ITS | Encounter Summary ---
Author Organization [facility] Address [address] [facility] [address] [place] [id number] Care Team Providers Care Screed Person Name Role Phone Moody Calle MD Primary Care Provider + [phone] Miscellaneous, Not In File Unavailable Unava ilable Encounter Details Date Type Department Care Team (Late st Contact Info) Description 07/18/2016 Orders Only [facility] ProviderNed MD [address] [place] [id number] Social History Tobacco Use Types Packs/Day Years Used Date Smoking Tobacco: Former Alcohol Use Standard Drinks/Week Comments Yes 0 (1 standard drink = 0.6 oz pur e alcohol) Sex and Gender Information Value Date Recorded Sex Assigned at Not on file 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
--- OUTSIDE RECORDS SUMMARY | 2024-05-30 10:20 | XMS_ITS | Clinical Summary ---
Author Organization [facility] Address [address] [place] [address] Care Team Providers Care Building Drafting Officer Name Role Phone Moody Calle MD Primary Care Provider [phone] Miscellaneous, Not In File Unavailable Unava ilable Allergies Active Allergy Reactions Criticality Noted Date Comments Hydrocodone-Acetaminophen Nausea And Vomiting 0 05/08/2012 Hydromorphone Unknown Medium Penicillins Unknown Medium Medications albuterol HFA (VENTOLIN HFA) 90 mcg/actuation inhaler inhale 2 puff by inhalation route every 4 - 6 hours as needed 0 Inhaler 0 5 Active arformoteroL (BROVANA) 15 mcg/2 mL nebulizer solution INHALE 1 VIAL VIA NEBULIZER EVERY 12 HOURS 2 Active Trelegy Ellipta 200-62.5-25 mcg inhaler Inhale 1 puff daily 2 Active metFORMIN (GLUCOPHAGE) 500 mg tablet Take 1 tablet (500 mg total) by mouth 2 (two) times a day 2 Active tadalafiL (CIALIS) 5 mg tablet Take 1 tablet (5 mg total) by mouth daily as needed for erectile dysfunction 10 tablet 11 4 Active atorvastatin (LIPITOR) 40 mg tablet TAKE 1 TABLET DAILY 90 tablet 3 4 Active aspirin 81 mg chewable tabletIndicatio ns:coronary artery disease Take 1 tablet (81 mg total) by mouth daily 30 tablet 11 4 Active dilTIAZem XR (dilTIAZem CD) 240 mg 24 hr capsule Take 1 capsule (240 mg total) by mouth daily 90 capsule 3 4 Active flecainide (TAMBOCOR) 100 mg tablet Take 1 tablet (100 mg total) by mouth every 12 (twelve) hours 30 tablet 4 Active azelastine (ASTELIN) 137 mcg (0.1 %) nasal spray 4 Active Active Problems Problem Noted Date Diagnosed Date Chest pain 05/26/2024 Atrial flutter with rapid ventricular response 0 05/25/2024 COPD (chronic obstructive pulmonary disease) 11/2024 Type 2 diabetes mellitus wit hout complication, with long-term current use of insulin ([facility]) 05/25/2024 History of TIA (transient ischemic attack) 05/25 Atrial fibrillation with rap id ventricular response ([facility]) 05/25/2024 Presence of Amulet left atrial appendage closure device 05/19/2023 At risk for bleeding associated with anticoagula nts 05/19/2023 Closed fracture of multiple ribs of left side, initial encounter 05/28/2021 Paroxysmal atrial fibrillation (CMS/HCC) 017 Assessment & Plan (04/05/2017 3:18 PM ACUTE COORDINATOR): Impression 1. Paroxysmal atrial fibrillation. Excellent suppression on flecainide. Will continue. PVI remains an option, particularly for drug failure 2. History of TIA. Patient compliant with anticoagulation. 3. Emphysema. Stable. 4. Hypertension. Risk factor for stroke. Patient on anticoagulation. 5. Encounter for therapeutic drug level monitoring. Satisfactory EKG on flecainide. 6. Right bundle-branch block. Chronic stable. Plan Continue meds Follow-up 1 year Encounters Date Type Department Care Team Description 05/27/2024 11:30 AM ACUTE COORDINATOR - 05/27/2024 12:25 PM ACUTE COORDINATOR Surgery [facility] Cardiac Catheterization Lab [address] [place] [address] Epifanio Burrell MD CARDIOVERSION [id number] 05/27/[address] [facility] Cardiology [address] [facility] [place], [place] [address] [address] Epifanio Burrell MD 05/25/2024 1:12 PM ACUTE COORDINATOR - 05/27/2024 5:48 PM ACUTE COORDINATOR Hospital Encounter [facility] [address] [place] [address] Reina Drake MD Rao, MD Sandor Clark, DO Luan Jordan Huzaifa, MD Chest pain, unspecified type (Primary Dx); Atrial fibrillation with rapid ventricular response (CMS/HCC) (HCC); Atrial flutter with rapid ventricular response (HCC) Discharge Disposition: Discharge to home or self care 03/29/2024 1:30 PM ACUTE COORDINATOR Office Visit [facility] Cardiology [address] [facility] [address] [address] Epifanio Burrell MD Paroxysmal atrial fibrillation (CMS/HCC) (HCC) (Primary Dx); Presence of Amulet left atrial appendage closure device; History of TIA (transient ischemic attack); Lipid screening 03/06/[address] [facility] Medical [facility] Cardiology [address] [place] [address] Epifanio Burrell MD emergency med supply from Last 3 Months Immunizations Name Administration Dates Next Due Influenza, Unspecified 05/03/2021 Surgical History Surgery Date Site/Laterality Comments APPENDECTOMY Appendectomy HERNIA REPAIR Hernia repair CHOLECYSTECTOMY Cholecystectomy CARDIAC ELECTROPHYSIOLOGY PROCEDURE 05/27/2024 N/A Procedure: CARDIOVERSION [id number]; Surgeon: Epifanio Burrell MD; Location: [facility]; Service: Cardiovascular; Laterality: N/A; Medical History Medical History Date Comments Chronic obstructive pulmonary disease (HCC) COPD Hx Other Medical TIA Hx Other Medical vasectomy Arrhythmia Atrial fibrillation (CMS/HCC) (HCC) Asthma Diabetes mellitus type I (HCC) TIA (transient ischemic attack) Family History Medical History Relation Name Comments Cancer Brother Cancer, unknown ; COPD Father COPD; Coronary artery disease Father Shelia nary artery disease; COPD Mother COPD; Diabetes Other Family history of Diabetes mellitus; Relation Name Status Comments Brother Father Mother Other Social History Tobacco Use Types Packs/Day Years Used Date Smoking Tobacco: Former Smokeless Tobacco: Never Tobacco Cessation:Counseling Given: Not Answered Alcohol Use Standard Drinks/Week Comments Yes 0 (1 standard drink = 0.6 oz pur e alcohol) [facility] Utilities Answer Date Recorded In the past 12 months has th e electric, gas, oil, or water company threatened to shut off services in your home? No 05/27/2024 Social Connection and Isolat ion Panel [NHANES] Answer Date Recorded In a typical week, how many times do you talk on the phone with family, friends, or neighbors? More than three times a week 05/27/2024 How often do you get togethe r with friends or relatives? More than three times a week 05/27/2024 How often do you attend chur ch or judaism services? Never 05/27/2024 Do you belong to any clubs o r organizations such as jainism groups, unions, fraternal or athletic groups, or school groups? No 05/27/2024 How often do you attend meet ings of the clubs or organizations you belong to? Never 05/27/2024 Are you , , di vorced, , never , or living with a partner? 05/27/2024 AUDIT-C Answer Date Recorded Frequency of Alcohol Consumption Not on file 05/19/2023 Q2: How many drinks containi ng alcohol do you have on a typical day when you are drinking? Patient does not drink Frequency of Binge Drinking Not on file 05/2023 Overall Financial Resource Strain (CARDIA) Answe r Date Recorded How hard is it for you to pa y for the very basics like food, housing, medical care, and heating? Not hard at all 05/27/2024 Hunger Vital Sign Answer Date Recorded Within the past 12 months, y ou worried that your food would run out before you got the money to buy more. Never true 05/27/19 25 Within the past 12 months, t he food you bought just didn't last and you didn't have money to get more. Never true 05/27/2024 PRAPARE - Transportation Answer Date Re corded In the past 12 months, has l ack of transportation kept you from medical appointments or from getting medications? No 05/18 In the past 12 months, has l ack of transportation kept you from meetings, work, or from getting things needed for daily living? No 05/27/2024 Housing Stability Vital Sign Answer Marc e Recorded In the last 12 months, was t here a time when you were not able to pay the mortgage or rent on time? No 05/27/2024 In the past 12 months, how m any times have you moved where you were living? 0 05/27/2024 At any time in the past 12 m [facility], were you homeless or living in a long term (including now)? No 05/27/2024 Personal Safety Answer Date Recorded Have you ever been in or are you currently in a harmful physical or emotional relationship or is someone making you feel afraid or unsafe? Denies 05/26/2024 Sex and Gender Information Value Date Recorded Sex Assigned at Not on file Legal Sex Male 9:27 PM ACUTE COORDINATOR Gender Identity Not on file Sexual Orientation Not on file Obstetrics History Last Filed Vital Signs Vital Sign Reading Time Taken Comments Blood Pressure 129/97 05/27/2024 5:00 PM ACUTE COORDINATOR Pulse 82 05/27/2024 5:00 PM ACUTE COORDINATOR Temperature 36.4 C (97.6 F) 05/27/2024 12:04 PM ACUTE COORDINATOR Respiratory Rate 17 05/27/2024 5:00 PM ACUTE COORDINATOR Oxygen Saturation 95% 05/27/2024 5:00 PM ACUTE COORDINATOR Inhaled Oxygen Concentration - - Weight 81.6 kg (179 lb 14.3 oz) 025 12:50 AM ACUTE COORDINATOR Height 175.3 cm (5' 9.02 ) 05/26/2024 1 2:50 AM ACUTE COORDINATOR Body Mass Index 26.55 05/26/2024 12:50 AM ACUTE COORDINATOR Plan of Treatment Health Maintenance Due Date Last Done Comments Albumin Creatinine Ratio, Urine 1955 Colon Cancer Screening-Colonoscopy 1955 Depression Screening 1955 Hepatitis C Screening 1955 Dilated Eye Exam 1955 Foot Exam 1955 Hepatitis B Screening 07/08/1971 Zoster Vaccine (1 of 2) 07/08/2003 Abdominal Aortic Aneurysm (A AA) Screen 2018 Well Visit 65+ 2018 Hemoglobin A1C 11/25/2021 05/28/2021 DTaP/Tdap/Td Vaccine (3 - Td or Tdap) 10/25/2023 10/24/2013, 06/13/2011 Covid-19 Vaccine (3 - 2023-2 5 season) 2023 07/13/2020, 06/15/2020 Influenza Vaccine (#1) 2023 , 01/29/2020, 02/23/2019, Additional history exists Lipid Panel 03/29/2025 03/29/2024, 04/17, 05/25/2022, Additional history exists eGFR 05/26/2025 05/26/2024, 11/2024, 05/20/2023, Additional history exists Fall Risk Assessment 05/27/2025 05/27/2024 Pneumococcal vaccine 65+ Completed 03/02/2020, 12/2018 Medical Devices Implanted Type Area Strategic Planning Specialist Device Identifier Shelf Expiration Date Model / Serial / Lot [employer] V[employer] Device Clsr Perclose Prostyle Sut-Mediatd Closure-Repair Sys [id number] - [id number] Implanted:Qty: 1 on 05/19/2023 by Epifanio Burrell MD at [facility] Vascular 02/14/2025 [id number] / / [id number] [employer] Percutaneous Transcatheter Amplatzer Amulet 18mm [id number] - [id number] Implanted:Qty: 1 on 05/19/2023 by Epifanio Burrell MD at [facility] 04/16/2027 [id number] / / [id number] Carditn Medical [facility] Vascade Mvp 6-12fr Venous Closure [id number] - [id number] Implanted:Qty: 1 on 05/19/2023 by Epifanio Burrell MD at [facility] 02/09/2025 [id number] / / [id number] Procedures Procedure Name Priority Date/Time Associated Diagnosis Comments ECG 12-LEAD STAT 05/27/2024 3:18 PM ACUTE COORDINATOR CARDIOVERSION Routine 05/27/2024 3:09 PM ACUTE COORDINATOR Atrial fibrillation with rapid ventricular response (CMS/HCC) (HCC) ECG 12-LEAD STAT 05/27/2024 2:20 PM ACUTE COORDINATOR POCT GLUCOSE DEVICE Routine 05/27/2024 1 1:59 AM ACUTE COORDINATOR POCT GLUCOSE DEVICE Routine 05/27/2024 8 :49 AM ACUTE COORDINATOR POCT GLUCOSE DEVICE Routine 05/26/2024 9 :07 PM ACUTE COORDINATOR POCT GLUCOSE DEVICE Routine 05/26/2024 5 :32 PM ACUTE COORDINATOR POCT GLUCOSE DEVICE Routine 05/26/2024 1 2:58 PM ACUTE COORDINATOR POCT GLUCOSE DEVICE Routine 05/26/2024 9 :19 AM ACUTE COORDINATOR EGFR Routine 05/26/2024 6:16 AM ACUTE COORDINATOR DIFFERENTIAL AUTO Routine 05/26/2024 6:1 6 AM ACUTE COORDINATOR CREATINE KINASE (CK), TOTAL Routine 05/26/2024 6:16 AM ACUTE COORDINATOR HEPATIC FUNCTION PANEL Routine 05/26/2024 6:16 AM ACUTE COORDINATOR CBC WITH AUTO DIFFERENTIAL Routine 05/26/2024 6:16 AM ACUTE COORDINATOR BASIC METABOLIC PANEL Routine 05/26/2024 6:16 AM ACUTE COORDINATOR MAGNESIUM Routine 05/26/2024 6:16 AM ACUTE COORDINATOR POCT GLUCOSE DEVICE Routine 05/26/2024 6 :14 AM ACUTE COORDINATOR POCT GLUCOSE DEVICE Routine 05/26/2024 1 :11 AM ACUTE COORDINATOR POCT GLUCOSE DEVICE Routine 05/25/2024 1 0:01 PM ACUTE COORDINATOR POCT GLUCOSE DEVICE Routine 05/25/2024 7 :18 PM ACUTE COORDINATOR TROPONIN T HIGH-SENSITIVITY 4-HR Timed 05/25/2024 5:51 PM ACUTE COORDINATOR TROPONIN T HIGH-SENSITIVITY 2-HOUR Timed 05/25/2024 3:42 PM ACUTE COORDINATOR NV CRITICAL CARE ILL/INJURED PATIENT INIT 30-74 MIN Routine 05/25/2024 1:30 PM ACUTE COORDINATOR XR CHEST PA LATERAL 2 VIEWS ED 05/25/2024 1:23 PM ACUTE COORDINATOR EGFR STAT 05/25/2024 1:10 PM ACUTE COORDINATOR DIFFERENTIAL AUTO STAT 05/25/2024 1:1 0 PM ACUTE COORDINATOR TROPONIN T HIGH-SENSITIVITY SERIES (BASELINE, 2HR, 4HR, 6HR) STAT 05/25/2024 1:10 PM ACUTE COORDINATOR COMPREHENSIVE METABOLIC PANEL STAT 05/25/2024 1:10 PM ACUTE COORDINATOR CBC WITH AUTO DIFFERENTIAL STAT 05/25/2024 1:10 PM ACUTE COORDINATOR ECG 12-LEAD STAT 05/25/2024 12:51 PM ACUTE COORDINATOR POCT LIPID PANEL Routine 03/29/2024 1:10 PM ACUTE COORDINATOR Lipid screening HEMOGLOBIN A1C Routine 05/28/2021 7:56 PM ACUTE COORDINATOR from Last 3 Months or Most Recently Relevant to Health Maintenance Results * CARDIOVERSION (05/27/2024 3:09 PM ACUTE COORDINATOR) Anatomical Region Laterality Modality X-Ray Angiograph y Narrative 05/28/2024 3:31 PM ACUTE COORDINATOR ELECTRICAL CARDIOVERSION PROCEDURE NOTE Date Of Procedure: 05/27/24 Patient Name: Anish Redman Date of : 1955 Indication for the Procedure: Recurrent atrial flutter with a RVR Brief clinical history: 68 y.o. male with paroxysmal atrial fibrillation and flutter ( status post DC cardioversion x2 in 2021, in June and January 2022); history of fall /rib fracture, status post left atrial appendage closure on 05/19/2023 using 18 Amplatzer Amulet left atrial appendage closure device; dyslipidemia, history of TIA, 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 Patient admitted to [facility] on 05/25/2024 with shortness breath, found to be in atrial flutter with RVR. He was referred for DC cardioversion. Patient is status post left atrial appendage closure, and has been on antiplatelet treatment. Benefits, risks and alternatives discussed with the patient and informed consent was taken prior to the procedure. Principal Shoe Dresser: Epifanio Burrell MD Procedures performed: Successful synchronized DC cardioversion with alevism of sinus rhythm. Moderate sedation (CPT 93382). Moderate sedation: Midazolam 2 mg, fentanyl 50 mcg Face to Face Conscious Sedation Time: Start 1504 hrs, Stop 1510 hrs; total [id number] time 6, trained observer Mayers RN Description of Procedure: The patient was placed in the supine position. Transcutaneous pads were placed in right parasternal and left paravetbral locations. Once adequately sedated, synchronized cardioversion was performed using 200 joule shock with alevism of sinus rhythm. There were no immediate procedural complications. Conclusions: Successful synchronized DC cardioversion with alevism of sinus rhythm. Plan/recommendations: Continue current medical regimen including diltiazem and flecainide. Patient is status post left atrial appendage closure device and has been on antiplatelet treatment. Outpatient electrophysiology evaluation for consideration for radiofrequency ablation. Message sent to office who will assist with electrophysiology appointment. Voice recognition software was used to complete this document, therefore, real estate agent/broker variances may occur. Epifanio Burrell MD, [facility] 05/27/2024 Raya Lentz MD CV ELECTROPHYSIOLOGY PROCS Final Result * ECG 12 lead (05/27/2024 2:20 PM ACUTE COORDINATOR) 05/27/2024 2:20 PM ACUTE COORDINATOR Narrative [facility] - 05/27/2024 3:19 PM ACUTE COORDINATOR Vent Rate: 111 bpm RR Interval: 540 msec NV Interval: 0 msec QRS Duration: 152 msec QT Interval: 377 msec QTC Interval: 442 msec P-R-T [place]: 0 - 221 - 26 degrees IMPRESSION: ATRIAL FLUTTER/TACHYCARDIA WITH RAPID VENTRICULAR RESPONSE RIGHT AXIS DEVIATION [QRS AXIS > 100] RIGHT BUNDLE BRANCH BLOCK [120+ ms QRS DURATION, UPRIGHT V1, 40+ ms S IN I/aVL/V4/V5/V6] SEPTAL MYOCARDIAL INFARCTION , OF INDETERMINATE AGE [40+ ms Q WAVE IN V1/V2] Old inferior HI ABNORMAL ECG No significant change since previous tracing Electronically Signed By: Kasi Patten MD, [facility] Epifanio Burrell MD ECG ORDERABLES Final Result Performing Organization Address [facility] Co de Phone Number [facility] * POCT glucose (05/27/2024 11:59 AM ACUTE COORDINATOR) Glucose, POC 110 70 - 199 mg/dL Blood 05/27/2024 11:5 9 AM ACUTE COORDINATOR 05/27/2024 11:59 AM ACUTE COORDINATOR Too Roland MD LAB POCT ORDERABLES - DEVICE Final Result Performing Organization Address [facility] de Phone Number JERALD [address] [address] [place] [address] * POCT glucose (05/27/2024 8:49 AM ACUTE COORDINATOR) Glucose, POC 111 70 - 199 mg/dL Blood 05/27/2024 8:49 AM ACUTE COORDINATOR 05/27/2024 8:49 AM ACUTE COORDINATOR Too Roland MD LAB POCT ORDERABLES - DEVICE Final Result Performing Organization Address [facility] Co de Phone [place] [facility] [place] [address] [address] [place] [address] * POCT glucose (05/26/2024 9:07 PM ACUTE COORDINATOR) Glucose, POC 157 70 - 199 mg/dL Blood 05/26/2024 9:07 PM ACUTE COORDINATOR 05/26/2024 9:07 PM ACUTE COORDINATOR Jose Patten DO LAB POCT ORDERABLES - JAKE CE Final Result Performing Organization Address [facility]/ZIP Co de Phone Number JERALD HACKETT [address] [facility] [place] [address] * POCT glucose (05/26/2024 5:32 PM ACUTE COORDINATOR) Glucose, POC 117 70 - 199 mg/dL Blood 05/26/2024 5:32 PM ACUTE COORDINATOR 05/26/2024 5:32 PM ACUTE COORDINATOR Josedominga Morgano Sandor [facility] POCT ORDERABLES - JAKE CE Final Result Performing Organization Address [facility] Co de Phone Number JERALD [address]ACKET[address] [address] [facility] [place] [address] * POCT glucose (05/26/2024 12:58 PM ACUTE COORDINATOR) Glucose, POC 116 70 - 199 mg/dL Blood 05/26/2024 12:5 8 PM ACUTE COORDINATOR 05/26/2024 12:58 PM ACUTE COORDINATOR us Josedominga Morgano Sandor [facility] POCT ORDERABLES - JAKE CE Final Result Performing Organization Address [facility] Co de Phone Number JERALD [address]ACKET[address] [address] [facility] [place] [address] * (ABNORMAL) POCT glucose (05/26/2024 9:19 AM ACUTE COORDINATOR) Glucose, POC 233(H) 70 - 199 mg/dL Blood 05/26/2024 9:19 AM ACUTE COORDINATOR 05/26/2024 9:19 AM ACUTE COORDINATOR Jose Patten [facility] POCT ORDERABLES - JAKE CE Final Result Performing Organization Address [facility] Co de Phone Number JERALD HACKETT [address] [address] [facility] [place] [address] * eGFR (05/26/2024 6:16 AM ACUTE COORDINATOR) eGFR 76 >=60 mL/min/1. 73 m2 Comment: Interpretive Data Reference Interval Normal >/= 90 mL/min/1.73m2 Mildly decreased* 60 - 89 mL/min/1.73m2 Mildly to moderately decreased 45 - 59 mL/min/1.73m2 Moderately to severely decreased 30 - 44 mL/min/1.73m2 Severely decreased 15 - 29 mL/min/1.73m2 Kidney Failure < 15 mL/min/1.73m2 *Relative to young adult level Estimated glomerular filtration rate is determined by the 2020 CKD-EPI equation recommended by the National Kidney Foundation (A Unifying Approach to GFR Estimation: Recommendations of the NKF-ASK Task Force on Reassessing the Inclusion of Race in Diagnosing Kidney Disease, JASN 202). The CKD-EPI equation should not be used for patients with unstable renal function and has not been validated in children and those over 70. Current interpretive data was last reviewed 2021. Blood 05/26/2024 6:16 AM ACUTE COORDINATOR 05/26/2024 6:46 AM ACUTE COORDINATOR us Klarissa Louise SWITCHBOARD OPERATOR LAB BLOOD ORDERABLES Final Res ult [facility] [address] [address] [place] [address] * Differential, auto (05/26/2024 6:16 AM ACUTE COORDINATOR) Neutrophil abs 4.4 1.5 - 6.5 K/cumm Imm gran abs 0.1 0.0 - 0.1 K/cumm [facility] Lymphocyte abs 1.9 0.8 - 3.3 K/cumm [facility] Monocyte abs 0.8 0.2 - 0.8 K/cumm [facility] Eosinophil abs 0.2 0.0 - 0.5 K/cumm [facility] Basophil abs 0.0 0.0 - 0.1 K/cumm [facility] Neutrophil pct 59.6 % [facility] Comment: Interpretive Data Percent cell count reference ranges are not reported, since discordance with absolute values may lead to misinterpretation of CBC data. Current Interpretive Data was last revised on 2017. Imm gran pct 0.7 % [facility] Comment: Interpretive Data Percent cell count reference ranges are not reported, since discordance with absolute values may lead to misinterpretation of CBC data. Current Interpretive Data was last revised on 2017. Lymphocyte pct 25.5 % [facility] Comment: Interpretive Data Percent cell count reference ranges are not reported, since discordance with absolute values may lead to misinterpretation of CBC data. Current Interpretive Data was last revised on 2017. Monocyte pct 11.1 % [facility] Comment: Interpretive Data Percent cell count reference ranges are not reported, since discordance with absolute values may lead to misinterpretation of CBC data. Current Interpretive Data was last revised on 2017. Eosinophil pct 2.7 % [facility] Comment: Interpretive Data Percent cell count reference ranges are not reported, since discordance with absolute values may lead to misinterpretation of CBC data. Current Interpretive Data was last revised on 2017. Basophil pct 0.4 % [facility] Comment: Interpretive Data Percent cell count reference ranges are not reported, since discordance with absolute values may lead to misinterpretation of CBC data. Current Interpretive Data was last revised on 2017. Blood 05/26/2024 6:16 AM ACUTE COORDINATOR 05/26/2024 6:19 AM ACUTE COORDINATOR us Klarissa Louise SWITCHBOARD OPERATOR LAB BLOOD ORDERABLES Final Res ult [facility] [address] [address] Department [place] [address] * (ABNORMAL) CBC with auto differential (05/26/2024 6:16 AM ACUTE COORDINATOR) WBC 7.5 3.8 - 9.9 K/cumm Hgb 15.1 13.0 - 17.5 g/dL [facility] Hct 47.0 38.9 - 50.3 % [facility] Plt 161 150 - 400 K/cumm [facility] MPV 9.8 9.1 - 12.3 fL [facility] RBC 4.92 4.30 - 5.80 M/cumm [facility] MCV 95.5 81.3 - 96.4 fL [facility] MCH 30.7 27.1 - 33.3 pg [facility] CH MCHC 32.1(L) 32.3 - 35.7 g/dL [facility] RDW CV 12.4 11.1 - 14.9 % [facility] CH RDW SD 43.3 35.7 - 48.1 fL [facility] NRBC abs 0.00 0.00 - 0.01 K/cumm [facility] Blood 05/26/2024 6:16 AM ACUTE COORDINATOR 05/26/2024 6:19 AM ACUTE COORDINATOR Klarissa Louise SWITCHBOARD OPERATOR LAB BLOOD ORDERABLES Final Res ult Performing Organization Address [facility] Co de Phone Number ANNADORIS HACKETT [address] [facility] [place], [place] [id number] * Magnesium (05/26/2024 6:16 AM ACUTE COORDINATOR) Magnesium 2.0 1.4 - 2.5 mg/dL Blood 05/26/2024 6:16 AM ACUTE COORDINATOR 05/26/2024 6:19 AM ACUTE COORDINATOR Klarissa Louise SWITCHBOARD OPERATOR LAB BLOOD ORDERABLES Final Res ult Performing Organization Address [facility] de Phone Number ANNADORIS HACKETT [address] [facility] [place], [place] [id number] * Creatine kinase (CK), total (05/26/2024 6:16 AM ACUTE COORDINATOR) CK 52 40 - 300 Units/L Blood 05/26/2024 6:16 AM ACUTE COORDINATOR 05/26/2024 6:19 AM ACUTE COORDINATOR Mariam Brown MD LAB BLOOD ORDERABLE S Final Result Performing Organization Address [facility] Co de Phone Number JERALD [address] [facility] [place] [address] * (ABNORMAL) Hepatic function panel (05/26/2024 6:16 AM ACUTE COORDINATOR) Bilirubin, total 0.4 0.1 - 1.2 mg/dL Bilirubin, direct 0.1 0.1 - 0.3 mg/dL [facility] Protein, pl 6.2(L) 6.5 - 8.5 g/dL [facility] Albumin 3.6 3.5 - 5.0 g/dL [facility] Alk phos 82 40 - 130 Units/L [facility] ALT 47 7 - 55 Units/L [facility] AST 26 10 - 50 Units/L [facility] Blood 05/26/2024 6:16 AM ACUTE COORDINATOR 05/26/2024 6:19 AM ACUTE COORDINATOR us Mariam Brown MD LAB [place]LOOD [place] [address] [address] Department [place] [address] * Basic metabolic panel (05/26/2024 6:16 AM ACUTE COORDINATOR) Sodium 138 135 - 145 mmol/L Potassium, pl 4.8 3.3 - 4.9 mmol/L [facility] Chloride 103 97 - 110 mmol/L [facility] CO2 25 22 - 32 mmol/L [facility] Anion gap 10 2 - 15 mmol/L [facility] BUN 19 6 - 25 mg/dL [facility] Creatinine 1.06 0.80 - 1.30 mg/dL [facility] Glucose 142 70 - 199 mg/dL [facility] Comment: Interpretive Data Fasting glucose >/= 126 mg/dl is diagnostic for diabetes. Fasting is defined as no caloric intake for at least 8 hours. Fasting glucose between 100 mg/dl to 125 mg/dl is diagnostic of prediabetes. In a patient with classic symptoms of hyperglycemia or hyperglycemic crisis, a random glucose >/= 200 mg/dl is diagnostic for diabetes. In the absence of unequivocal hyperglycemia, results should be confirmed by repeat testing. The classification and Diagnosis of Diabetes Diabetes Care 2021; 46: S19-S40. Current interpretive data was last revised 2022. Calcium 8.7 8.5 - 10.3 mg/dL [facility] Blood 05/26/2024 6:16 AM ACUTE COORDINATOR 05/26/2024 6:19 AM ACUTE COORDINATOR us Klarissa Louise SWITCHBOARD OPERATOR LAB BLOOD ORDERABLES Final Res ult Performing Organization Address [facility] Co de Phone Number JERALD HACKETT [phone] [address] [facility] [place] [address] * POCT glucose (05/26/2024 6:14 AM ACUTE COORDINATOR) Glucose, POC 128 70 - 199 mg/dL Blood 05/26/2024 6:14 AM ACUTE COORDINATOR 05/26/2024 6:14 AM ACUTE COORDINATOR Mariam Brown MD LAB POCT ORDERABLES - DEVICE Final Result Performing Organization Address [facility] de Phone Number JERALD [address] [address] [facility] [place] [address] * POCT glucose (05/26/2024 1:11 AM ACUTE COORDINATOR) Glucose, POC 139 70 - 199 mg/dL Blood 05/26/2024 1:11 AM ACUTE COORDINATOR 05/26/2024 1:11 AM ACUTE COORDINATOR Mariam Brown MD LAB POCT ORDERABLES - DEVICE Final Result Performing Organization Address [facility] Co de Phone Number JERALD [address] [address] [place] [address] * POCT glucose (05/25/2024 10:01 PM ACUTE COORDINATOR) Glucose, POC 192 70 - 199 mg/dL Blood 05/25/2024 10:0 1 PM ACUTE COORDINATOR 05/25/2024 10:01 PM ACUTE COORDINATOR us Mariam Brown MD LAB POCT ORDERABLES - DEVICE Final Result Performing Organization Address [facility] Co de Phone Number JERALD [address] [address] [facility] [place] [address] * (ABNORMAL) POCT glucose (05/25/2024 7:18 PM ACUTE COORDINATOR) Glucose, POC 204(H) 70 - 199 mg/dL Blood 05/25/2024 7:18 PM ACUTE COORDINATOR 05/25/2024 7:18 PM ACUTE COORDINATOR Mariam Brown MD LAB POCT ORDERABLES - DEVICE Final Result Performing Organization Address City/[facility]/ZIP Co de Phone Number JERALD HACKETT [address] [address] [place] [address] * (ABNORMAL) Troponin T high-sensitivity 4-hour (05/25/2024 5:51 PM ACUTE COORDINATOR) Trop T hs 33(H) <=22 ng/L Comment: Interpretive Data For further hscTnT resources including the diagnostic algorithm and an aid in interpretation, copy and paste this link: https://nrl.[employer]ital[employer].org/show/hsTrop Current Interpretive Data last revised 2020. Trop T hs delta 2 ng/L [facility] Trop T hs interp Insignificant [facility] Blood 05/25/2024 5:51 PM ACUTE COORDINATOR 05/25/2024 5:51 PM ACUTE COORDINATOR Heron Faith DO LAB BLOOD ORDERABLES Final Res ult Performing Organization Address [facility]/ZIP Co de Phone Number ANNADORIS HACKETT [address] [address] [place] [address] * (ABNORMAL) Troponin T high-sensitivity 2-hour (05/25/2024 3:42 PM ACUTE COORDINATOR) Trop T hs 31(H) <=22 ng/L Comment: Interpretive Data For further hscTnT resources including the diagnostic algorithm and an aid in interpretation, copy and paste this link: https://nrl.[employer].org/show/hsTrop Current Interpretive Data last revised 2020. Trop T hs delta 0 ng/L [facility] Trop T hs interp Insignificant [facility] Blood 05/25/2024 3:42 PM ACUTE COORDINATOR 05/25/2024 3:42 PM ACUTE COORDINATOR us Heron Faith DO LAB [place]LOOD [place] [address] [facility] Department [place] [address] * [place] CRITICAL CARE ILL/INJURED PATIENT INIT 30-74 MIN (05/25/2024 1:30 PM ACUTE COORDINATOR) Narrative Reina Drake MD - 05/25/2024 1:30 PM ACUTE COORDINATOR Reina Drake MD 05/25/2024 9:28 PM Critical Care Performed by: Reina Drake MD Authorized by: Reina Drake MD Critical care provider statement: As reflected in the history, physical exam, orders, notes, and/or MDM, I was personally present while the patient was critically ill and provided critical care services for 60 minutes, excluding time involved in separately billable procedures. Critical care was necessary to treat or prevent imminent or life-threatening deterioration of the following condition(s): atrial fibrillation Critical care was time spent by me providing the following: continuous telemetry, continuous pulse oximetry, continuous capnography, interpretation of bedside monitors, imaging, and arterial/venous lab draws and serial bedside patient exams initiation of rate controlling agent I provided emergent necessary critical care medicine services to this patient. I spent time documenting in the medical record. I admitted this patient to a continuous cardiac monitored bed. us Reina Drake MD IN CLINIC/BEDSIDE ORDER KIMBERLY Final Result * XR Chest PA Lateral 2 Views (05/25/2024 1:23 PM ACUTE COORDINATOR) Anatomical Region Laterality Modality Body, Chest N/A Computed Radiogr aphy 05/25/2024 1:44 PM ACUTE COORDINATOR Impressions 05/25/2024 1:44 PM ACUTE COORDINATOR 1. No evidence of active cardiopulmonary disease. 2. Left atrial appendage closure device. 3. No change from previous. Electronically signed by: Rito Scott M.D. Narrative 05/25/2024 1:44 PM ACUTE COORDINATOR EXAMINATION: XR CHEST PA LATERAL 2 VIEWS DATE: 05/25/2024 1:15 PM INDICATION: Chest pain. COMPARISON: 05/19/2023 FINDINGS: PA and lateral radiographs of the chest were obtained. The heart and mediastinum are within normal limits. There is a left atrial appendage closure device in place. The lungs are well-expanded and clear. No significant bony abnormality is seen. Procedure Note Rito Scott MD - 05/25/2024 EXAMINATION: XR CHEST PA LATERAL 2 VIEWS DATE: 05/25/2024 1:15 PM INDICATION: Chest pain. COMPARISON: 05/19/2023 FINDINGS: PA and lateral radiographs of the chest were obtained. The heart and mediastinum are within normal limits. There is a left atrial appendage closure device in place. The lungs are well-expanded and clear. No significant bony abnormality is seen. IMPRESSION: 1. No evidence of active cardiopulmonary disease. 2. Left atrial appendage closure device. 3. No change from previous. Electronically signed by: Rito Scott M.D. Reina Drake MD IMG XR PROCEDURES Final Result * (ABNORMAL) Troponin T high-sensitivity series (baseline, 2hr, 4hr, 6hr) (05/25/2024 1:10 PM ACUTE COORDINATOR) Trop T hs 31(H) <=22 ng/L Comment: Interpretive Data For further hscTnT resources including the diagnostic algorithm and an aid in interpretation, copy and paste this link: https://nrl.testcatalog.org/show/hsTrop Current Interpretive Data last revised 2020. Blood 05/25/2024 1:10 PM ACUTE COORDINATOR 05/25/2024 1:18 PM ACUTE COORDINATOR Reina Drake MD LAB BLOOD ORDERABLES Ed ited Result - Final JERALD [address] [address] [place] [address] * eGFR (05/25/2024 1:10 PM ACUTE COORDINATOR) eGFR 79 >=60 mL/min/1. 73 m2 Comment: Interpretive Data Reference Interval Normal >/= 90 mL/min/1.73m2 Mildly decreased* 60 - 89 mL/min/1.73m2 Mildly to moderately decreased 45 - 59 mL/min/1.73m2 Moderately to severely decreased 30 - 44 mL/min/1.73m2 Severely decreased 15 - 29 mL/min/1.73m2 Kidney Failure < 15 mL/min/1.73m2 *Relative to young adult level Estimated glomerular filtration rate is determined by the 2020 CKD-EPI equation recommended by the National Kidney Foundation (A Unifying Approach to GFR Estimation: Recommendations of the NKF-ASK Task Force on Reassessing the Inclusion of Race in Diagnosing Kidney Disease, JASN 2020). The CKD-EPI equation should not be used for patients with unstable renal function and has not been validated in children and those over 70. Current interpretive data was last reviewed 2021. Blood 05/25/2024 1:10 PM ACUTE COORDINATOR 05/25/2024 1:18 PM ACUTE COORDINATOR us Heron Faith DO LAB BLOOD ORDERABLES Final Res ult JERALD [address] [address] Department [place] [address] * Differential, auto (05/25/2024 1:10 PM ACUTE COORDINATOR) Pathologist [facility] Neutrophil abs 4.6 1.5 - 6.5 K/cumm Imm gran abs 0.0 0.0 - 0.1 K/cumm [facility] Lymphocyte abs 1.6 0.8 - 3.3 K/cumm [facility] Monocyte abs 0.7 0.2 - 0.8 K/cumm [facility] Eosinophil abs 0.2 0.0 - 0.5 K/cumm [facility] Basophil abs 0.0 0.0 - 0.1 K/cumm [facility] Neutrophil pct 64.0 % [facility] Comment: Interpretive Data Percent cell count reference ranges are not reported, since discordance with absolute values may lead to misinterpretation of CBC data. Current Interpretive Data was last revised on 2017. Imm gran pct 0.6 % [facility] Comment: Interpretive Data Percent cell count reference ranges are not reported, since discordance with absolute values may lead to misinterpretation of CBC data. Current Interpretive Data was last revised on 2017. Lymphocyte pct 22.9 % [facility] Comment: Interpretive Data Percent cell count reference ranges are not reported, since discordance with absolute values may lead to misinterpretation of CBC data. Current Interpretive Data was last revised on 2017. Monocyte pct 9.4 % [facility] Comment: Interpretive Data Percent cell count reference ranges are not reported, since discordance with absolute values may lead to misinterpretation of CBC data. Current Interpretive Data was last revised on 2017. Eosinophil pct 2.7 % [facility] Comment: Interpretive Data Percent cell count reference ranges are not reported, since discordance with absolute values may lead to misinterpretation of CBC data. Current Interpretive Data was last revised on 2017. Basophil pct 0.4 % [facility] Comment: Interpretive Data Percent cell count reference ranges are not reported, since discordance with absolute values may lead to misinterpretation of CBC data. Current Interpretive Data was last revised on 2017. Blood 05/25/2024 1:10 PM ACUTE COORDINATOR 05/25/2024 1:19 PM ACUTE COORDINATOR us Heron Faith DO LAB BLOOD ORDERABLES Final Res ult [facility] [address] [address] Department [place] [address] * (ABNORMAL) CBC with auto differential (05/25/2024 1:10 PM ACUTE COORDINATOR) WBC 7.1 3.8 - 9.9 K/cumm Hgb 17.0 13.0 - 17.5 g/dL [facility] Hct 52.0(H) 38.9 - 50.3 % [facility] Plt 187 150 - 400 K/cumm [facility] MPV 9.7 9.1 - 12.3 fL [facility] RBC 5.46 4.30 - 5.80 M/cumm [facility] MCV 95.2 81.3 - 96.4 fL [facility] MCH 31.1 27.1 - 33.3 pg [facility] MCHC 32.7 32.3 - 35.7 g/dL [facility] RDW CV 12.1 11.1 - 14.9 % [facility] RDW SD 41.8 35.7 - 48.1 fL [facility] NRBC abs 0.00 0.00 - 0.01 K/cumm [facility] Blood (Blood, Venous) 05/25/2024 1:10 PM ACUTE COORDINATOR 05/25/2024 1:19 PM ACUTE COORDINATOR Reina Drake MD LAB BLOOD ORDERABLES Fi nal Result [facility] [address] [address] Department [place] [address] * (ABNORMAL) Comprehensive metabolic panel (05/25/2024 1:10 PM ACUTE COORDINATOR) Sodium 136 135 - 145 mmol/L Potassium, pl 4.5 3.3 - 4.9 mmol/L [facility] Chloride 99 97 - 110 mmol/L [facility] CO2 24 22 - 32 mmol/L [facility] Anion gap 13 2 - 15 mmol/L [facility] BUN 17 6 - 25 mg/dL [facility] Creatinine 1.02 0.80 - 1.30 mg/dL [facility] Glucose 195 70 - 199 mg/dL [facility] Comment: Interpretive Data Fasting glucose >/= 126 mg/dl is diagnostic for diabetes. Fasting is defined as no caloric intake for at least 8 hours. Fasting glucose between 100 mg/dl to 125 mg/dl is diagnostic of prediabetes. In a patient with classic symptoms of hyperglycemia or hyperglycemic crisis, a random glucose >/= 200 mg/dl is diagnostic for diabetes. In the absence of unequivocal hyperglycemia, results should be confirmed by repeat testing. The classification and Diagnosis of Diabetes Diabetes Care 2021; 46: S19-S40. Current interpretive data was last revised 2022. Calcium 9.5 8.5 - 10.3 mg/dL [facility] Bilirubin, total 0.3 0.1 - 1.2 mg/dL [facility] Protein, pl 7.7 6.5 - 8.5 g/dL [facility] Albumin 4.4 3.5 - 5.0 g/dL [facility] Alk phos 102 40 - 130 Units/L [facility] ALT 64(H) 7 - 55 Units/L [facility] AST 42 10 - 50 Units/L [facility] Blood 05/25/2024 1:10 PM ACUTE COORDINATOR 05/25/2024 1:18 PM ACUTE COORDINATOR Reina Drake MD LAB BLOOD ORDERABLES Fi nal Result Performing Organization Address City/[facility]/ZIP Co de Phone Number JERALD [address] [address] Department [place] [address] * ECG 12 lead (05/25/2024 12:51 PM ACUTE COORDINATOR) 05/25/2024 12:5 1 PM ACUTE COORDINATOR Narrative [facility] - 05/26/2024 9:22 PM ACUTE COORDINATOR Vent Rate: 116 bpm RR Interval: 515 msec NV Interval: 0 msec QRS Duration: 173 msec QT Interval: 377 msec QTC Interval: 446 msec P-R-T [place]: 0 - 250 - 27 degrees IMPRESSION: Probable ATRIAL FLUTTERWITH RAPID VENTRICULAR RESPONSE RIGHT AXIS DEVIATION [QRS AXIS > 100] RIGHT BUNDLE BRANCH BLOCK [120+ ms QRS DURATION, UPRIGHT V1, 40+ ms S IN I/aVL/V4/V5/V6] INFERIOR MYOCARDIAL INFARCTION , OF INDETERMINATE AGE [40+ ms Q WAVE AND/OR ST/T ABNORMALITY IN II/aVF] ANTEROSEPTAL MYOCARDIAL INFARCTION , PROBABLY old. Compared to prior EKG, atrial flutter is now present Heart rate has increased Electronically Signed By: Benjamin West MD Reina Drake MD ECG ORDERABLES Final R esult [facility] * POCT lipid panel (03/29/2024 1:10 PM ACUTE COORDINATOR) Cholesterol, POC 160 mg/dL HDL, POC 43 mg/dL Triglycerides, POC 301 mg/dL LDL Cholesterol POC 56 mg/dL Chol/HDL Ratio, POC 3.7 Non-HDL Cholesterol, POC 116 mg/dL Cholesterol Total, POC 160 mg/dL Capillary blood 03/29/2024 1 :10 PM ACUTE COORDINATOR Epifanio Burrell MD POINT OF CARE TEST ORDERABLES Fi nal Result * (ABNORMAL) Hemoglobin A1c (05/28/2021 7:56 PM ACUTE COORDINATOR) Hgb A1C 8.4(H) 4.0 - 5.6 % [facility] Estimated Average Glucose 194 mg/dL [facility] Comment: The ADA recommends reporting an estimated Average Glucose (eAG) with all Hemoglobin A1c results using the equation derived from a study of 507 normal and diabetic adults. Minority populations were underrepresented and children were not included. (Diabetes Care 2020; 43(S1): S66-S76). The eAG is not equivalent to a fasting glucose. Blood 05/28/2021 7:56 PM ACUTE COORDINATOR 05/28/2021 8:19 PM ACUTE COORDINATOR Noah Barbosa MD LAB BLOOD ORDERABLES Meghan baxter Result [facility] [address] [facility] [place] [address] from Last 3 Months or Most Recently Relevant to Health Maintenance Insurance [facility] CLAIMS MEDICARE MEDICARE FOR [facility] MEDICARE FOR LIFE Advance Directives For more information, please contact: [phone] * Full Code (Latest Code Status on File) Date Activated Date Inactivated Comments 05/25/2024 5:14 PM 05/27/2024 9:53 PM * Full Code Date Activated Date Inactivated Comments 05/28/2021 2:50 PM 05/31/2021 5:21 PM Care Teams Building Drafting Officer Relationship Specialty Start Date End Date Moody Calle MD PCP - General 07/15/16 Miscellaneous, Not In File 06/21/21
--- OUTSIDE RECORDS SUMMARY | 2024-05-30 10:20 | XMS_ITS | Encounter Summary ---
Author Organization [facility] Address [address] [place] [address] Care Team Providers Care Hospice Music Therapy Name Role Phone Moody Calle MD Primary Care Provider + [phone] Moody Calle MD Primary Care Provider + [phone] Miscellaneous, Not In File Unavailable Unava ilable Encounter Details Date Type Department Care Team (Late st Contact Info) Description 04/28/2016 Orders Only [facility] ProviderNed MD [address] [place] [id number] Social History Tobacco Use Types Packs/Day Years Used Date Smoking Tobacco: Former Alcohol Use Standard Drinks/Week Comments No 0 (1 standard drink = 0.6 oz pur e alcohol) Sex and Gender Information Value Date Recorded Sex Assigned at Not on file 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
--- OUTSIDE RECORDS SUMMARY | 2024-05-30 10:20 | XMS_ITS | Encounter Summary ---
Author Organization [facility] Address [address] [place] [address] Care Team Providers Care Service Desk Technician Name Role Phone Moody Calle MD Primary Care Provider + [phone] Moody Calle MD Primary Care Provider + [phone] Miscellaneous, Not In File Unavailable Unava ilable Encounter Details Date Type Department Care Team (Late st Contact Info) Description 06/02/2016 Orders Only [facility] ProviderNed MD [address] [place] [id number] Social History Tobacco Use Types Packs/Day Years Used Date Smoking Tobacco: Former Alcohol Use Standard Drinks/Week Comments No 0 (1 standard drink = 0.6 oz pur e alcohol) Sex and Gender Information Value Date Recorded Sex Assigned at Not on file 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 Historical Provider [facility] NABIL COLUNGA Final Result documented in this encounter Visit Diagnoses Not on filedocumented in this encounter Additional Health Concerns Infection Onset Date Last Indicated Resolved Time COVID: Suspected 05/28/2021 05/28/2021 05/28/2021 10:28 AM CONFLICT RESOLUTION PROFESSIONAL documented as of this encounter Care Teams Service Desk Technician Relationship Specialty Start Date End Date Moody Calle MD PCP - General 07/15/16 Moody Calle MD PCP - General 07/16/14 07/14/16 Miscellaneous, Not In File 06/21/21 documented as of this encounter
--- OUTSIDE RECORDS SUMMARY | 2024-05-30 10:20 | XMS_ITS | Continuity of Care Document ---
Author Name [facility] Organization [facility] Care Team Providers Care Electronic Calibration Technician Name Role Phone [facility] Unavailable Unavailable Problems Combined list of problems from Department [facility] facilities. It does not include entries that were removed or entered in error. Problem Status Onset Date Problem Type Date of Resolution Comments Source Backache (ICD-9-CM 724.5) Active Condition [facility] Hearing Loss, Sensorineural, Unspecified Active Condition [facility] Vitamin D Deficiency Active Condition [facility] Medications Combined list of outpatient medications from Department [facility] facilities.Medications provided include 1) outpatient medications from the last 15 months, and 2) patient-reported medications. Medication Details Route Status Patient Instructions Prescription Expires Prescription Number Last Dispense Date Ordering Provider Order Date Order Qty Source AREXVY (respirator y syncytial virus vacc. antigen/AS0 1E adjuvant/PF ), 120MCG/0.5, KIT, INTRAMUSC, GLAXOSMITHK LINE, 1 ea. KIT Active [id number] 2022 1 Pharmac y Data Transac tion Service Facilit y ASPIRIN 81MG TAB,EC TAKE ONE TABLET BY MOUTH ONCE A DAY ORAL ACTIVE CHETAN COOPER I 2012 [facility] ATORVASTATI N CALCIUM (atorvastat in calcium), 40 MG, TABLET, ORAL, [employer], 1000 ea. BOTTLE Active [id number] 4 2023 90 Pharmac y Data Transac tion Service Facilit y ATORVASTATI N CALCIUM (atorvastat in calcium), 40 MG, TABLET, ORAL, [employer], 1000 ea. BOTTLE Active [id number] 4 2023 90 Pharmac y Data Transac tion Service Facilit y CEFUROXIME (CEFUROXIME AXETIL), 500 MG, TABLET, ORAL, [employer], 60 ea. BOTTLE Cancele d [id number] : 2023 0 Pharmac y Data Transac tion Service Facilit y CLOPIDOGREL (CLOPIDOGRE L BISULFATE), 75 MG, TABLET, ORAL, [employer]ARM, 90 ea. BOTTLE Cancele d [id number] : 2023 0 Pharmac y Data Transac tion Service Facilit y CLOPIDOGREL (CLOPIDOGRE L BISULFATE), 75 MG, TABLET, ORAL, [employer]ARM, 90 ea. BOTTLE Active [id number] 4 2023 30 Pharmac y Data Transac tion Service Facilit y CLOPIDOGREL (CLOPIDOGRE L BISULFATE), 75 MG, TABLET, ORAL, [employer], 90 ea. BOTTLE Active [id number] 4 2023 30 Pharmac y Data Transac tion Service Facilit y CLOPIDOGREL (clopidogre l bisulfate), 75 MG, TABLET, ORAL, [employer], 1000 ea. BOTTLE Cancele d [id number] : 2023 0 Pharmac y Data Transac tion Service Facilit y CLOPIDOGREL (clopidogre l bisulfate), 75 MG, TABLET, ORAL, [employer], 1000 ea. BOTTLE Active [id number] 2023 90 Pharmac y Data Transac tion Service Facilit y CLOPIDOGREL (clopidogre l bisulfate), 75 MG, TABLET, ORAL, [employer], 1000 ea. BOTTLE Active [id number] 4 2023 90 Pharmac y Data Transac tion Service Facilit y CLOPIDOGREL BISULFATE 75MG TAB TAKE ONE TABLET BY MOUTH ONCE A DAY ORAL ACTIVE CHETAN COOPER I 2012 [facility] DILTIAZEM 24HR ER (CD) (diltiazem HCl), 240 MG, CAP ER 24H, ORAL, [employer] 90 ea. BOTTLE Active [id number] 4 2023 90 Pharmac y Data Transac tion Service Facilit y FENOFIBRATE 130MG CAP TAKE 1 CAPSULE BY MOUTH ONCE A DAY ORAL ACTIVE CHETAN COOPER Yao 2012 [facility] FLECAINIDE ACETATE (flecainide acetate), 100 MG, TABLET, ORAL, [employer] 100 ea. BOTTLE Active [id number] 4 2023 180 Pharmac y Data Transac tion Service Facilit y FLECAINIDE ACETATE (flecainide acetate), 100 MG, TABLET, ORAL, [employer] 100 ea. BOTTLE Cancele d [id number] : 2023 0 Pharmac y Data Transac tion Service Facilit y FLUZONE HIGH-DOSE QUAD (influenza virus vaccine quadrival split (65 yr up)/PF), 240MCG/0.7, SYRINGE, INTRAMUSC, SANOFI-PAST EUR, .7 ml SYRINGE Active [id number] 3 2022 0.7 Pharmac y Data Transac tion Service Facilit y HYDROCODONE -ACETAMINOP HEN (HYDROCODON E/ACETAMINO PHEN), 5MG-325MG, TABLET, ORAL, AMNEAL PHARMACE, 100 ea. BOTTLE Active [id number] 3 2023 15 Pharmac y Data Transac tion Service Facilit y SIMVASTATIN 80MG TAB TAKE ONE-HALF TABLET BY MOUTH EVERY EVENING ORAL ACTIVE CHETAN COOPER I 2012 [facility] Allergies, Adverse Reactions, Alerts Combined list of allergies from Department of Defense and Veterans Affairs facilities. It does not include entries that were removed or entered in error. Substance Category Reaction Severity Reaction type Status Date Reported Comments Source PENICILLIN Propensity to adverse reactions to drug (finding) Urticaria, Syncope, Respiratory distress active 2 [facility] VICODIN Propensity to adverse reactions to drug (finding) Nausea and vomiting active 3 [facility] Immunizations Combined list of available immunizations from the Department of Defense and Veterans Affairs facilities. Immunization Series Date Given Administered By Site Reaction Lot Number CVX Code Drug Residential Collections Status Comments Source COVID-19, mRNA, LNP-S, PF, 30 mcg/0.3 mL dose 2020 MARSHALL [employer] (PFR) Not Given COVID-19, mRNA, LNP-S, PF, 30 mcg/0.3 mL dose DoD COVID-19, mRNA, LNP-S, PF, 30 mcg/0.3 mL dose 2020 JUAN CARLOS [employer] [place] (PFR) Not Given COVID-19, mRNA, LNP-S, PF, 30 mcg/0.3 mL dose DoD influenza, high-dose, quadrivalent 2019 [facility], () Not Given influenza , high-dose , quadrival ent DoD Influenza, high dose seasonal 2018 [facility], () Not Given Influenza , high dose seasonal [facility] INFLUENZA, SEASONAL, INJECTABLE 2014 141 complet ed Partner: Elbert . Administe red by: KIA NOLEN (NPI=Not Provided) . Partner 0 Lot#: [id number] Mfr: [employer] [facility] INFLUENZA, UNSPECIFIED FORMULATION 2011 88 complet ed [facility] TDAP 2011 115 complet ed Left Deltoid [facility] INFLUENZA, UNSPECIFIED FORMULATION 2010 88 complet ed [facility] Encounters Combined list of: 1) Encounters from Department of Veterans Affairs facilities going backup to the last 18 months, not all VA inpatient encounters are included; 2) Encounters from the Department of Defense facilities going backup to 280 months. Location Location Details Encounter Type Encounter Number Reason For Visit Attending Provider ADM Date DC Date Status Disposition Source [facility] Outpatient Encounter [id number] 3 12/29 [facility] Social History Combined list of available smoking, tobacco, and other social history from Department of Defense and Veterans Affairs facilities. Social History Type Response Date Comment Sourc e Tobacco smoking status NHIS QUIT TOBACCO >7 YEARS AGO 05/08/2012 [facility] History of tobacco use QUIT TOBACCO >12 MO and <7 YRS AGO 06/13/2011 [facility] This section is an empty social history section. DoD
--- OUTSIDE RECORDS SUMMARY | 2024-05-30 10:20 | XMS_ITS | Encounter Summary ---
Author Organization [facility] Address [address] [place] [address] Care Team Providers Care Brake Operator Sheet Metal Name Role Phone Moody Calle MD Primary Care Provider + [phone] Moody Calle MD Primary Care Provider + [phone] Miscellaneous, Not In File Unavailable Unava ilable Encounter Details Date Type Department Care Team (Late st Contact Info) Description 07/06/2016 Orders Only [facility] ProviderNed MD [address] [place] [id number] Social History Tobacco Use Types Packs/Day Years Used Date Smoking Tobacco: Former Alcohol Use Standard Drinks/Week Comments Yes 0 (1 standard drink = 0.6 oz pur e alcohol) Sex and Gender Information Value Date Recorded Sex Assigned at Not on file Legal Sex Male 9:27 PM BOX COVERER HAND Gender Identity Not on file Sexual Orientation Not on file documented as of this encounter Plan of Treatment Not on file documented as of this encounter Procedures Procedure Name Priority Date/Time Associated Diagnosis Comments CARDIOLOGY REPORT 07/06/2016 CARDIOLOGY REPORT 07/06/2016 documented in this encounter Results * CARDIOLOGY REPORT (07/06/2016) Anatomical Region Laterality Modality Other Narrative 07/06/2016 Ordered by an unspecified provider. Historical Provider [facility] Final Result * CARDIOLOGY REPORT (07/06/2016) Anatomical Region Laterality Modality Other Narrative 07/06/2016 Ordered by an unspecified provider. us Historical Provider [facility] Final Result documented in this encounter Visit Diagnoses Not on filedocumented in this encounter Additional Health Concerns Infection Onset Date Last Indicated Resolved Time COVID: Suspected 05/28/2021 05/28/2021 05/28/2021 10:28 AM BOX COVERER HAND documented as of this encounter Care Teams Brake Operator Sheet Metal Relationship Specialty Start Date End Date Moody Calle MD PCP - General 07/15/16 Moody Calle MD PCP - General 07/16/14 07/14/16 Miscellaneous, Not In File 06/21/21 documented as of this encounter
--- OUTSIDE RECORDS SUMMARY | 2024-05-30 10:20 | XMS_ITS | Encounter Summary ---
Author Organization [facility] Address [address] [place] [address] Care Team Providers Care Career Discovery Teacher Name Role Phone Moody Calle MD Primary Care Provider + [phone] Miscellaneous, Not In File Unavailable Unava ilable Encounter Details Date Type Department Care Team (Late st Contact Info) Description 08/10/2016 Orders Only [facility] ProviderNed MD [address] [place] [id number] Social History Tobacco Use Types Packs/Day Years Used Date Smoking Tobacco: Former Alcohol Use Standard Drinks/Week Comments Yes 0 (1 standard drink = 0.6 oz pur e alcohol) Sex and Gender Information Value Date Recorded Sex Assigned at Not on file 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 Historical Provider [facility] Final Result documented in this encounter Visit Diagnoses Not on filedocumented in this encounter Additional Health Concerns Infection Onset Date Last Indicated Resolved Time COVID: Suspected 05/28/2021 05/28/2021 05/28/2021 10:28 AM DISPOSAL PLANT OPERATOR documented as of this encounter Care Teams Career Discovery Teacher Relationship Specialty Start Date End Date Moody Calle MD PCP - General 07/15/16 Miscellaneous, Not In File 06/21/21 documented as of this encounter
--- OUTSIDE RECORDS SUMMARY | 2024-05-30 10:20 | XMS_ITS | Referral Summary ---
Author Organization [facility] Address [address] [place] [address] Care Team Providers Care Mold Maker Name Role Phone Moody Calle MD Primary Care Provider Miscellaneous, Not In File Unavailable Unava ilable Encounters Date Type Department Care Team Description 05/27/2024 Telephone [facility] [address] [place] [phone] Epifanio Burrell MD 05/27/2024 11:30 AM MALE INFERTILITY SPECIALIST - 05/27/2024 12:25 PM MALE INFERTILITY SPECIALIST Surgery [facility] Cardiac Catheterization Lab [address] [place] [address] Epifanio Burrell MD CARDIOVERSION [id number] 05/25/2024 1:12 PM MALE INFERTILITY SPECIALIST - 05/27/2024 5:48 PM MALE INFERTILITY SPECIALIST Hospital Encounter [address] [address] Reina Drake MD Rao, MD Sandor Clark, DO Luan Jordan Huzaifa, MD Chest pain, unspecified type (Primary Dx); Atrial fibrillation with rapid ventricular response (CMS/HCC) (HCC); Atrial flutter with rapid ventricular response (HCC) Discharge Disposition: Discharge to home or self care 03/29/2024 1:30 PM MALE INFERTILITY SPECIALIST Office Visit [facility] [address] [place] [phone] Epifanio Burrell MD Paroxysmal atrial fibrillation (CMS/HCC) (HCC) (Primary Dx); Presence of Amulet left atrial appendage closure device; History of TIA (transient ischemic attack); Lipid screening 03/06/2024 Telephone [facility] [address] [place] [address] Epifanio Burrell MD emergency med supply from Last 3 Months Allergies Active Allergy Reactions Criticality Noted Date [...] complication, with long-term current use of insulin ([facility]) 05/25/2024 History of TIA (transient ischemic attack) 05/25 Atrial fibrillation with rap id ventricular response ([facility]) 05/25/2024 Presence of Amulet left atrial appendage closure device 05/19/2023 At risk for bleeding associated with anticoagula nts 05/19/2023 Closed fracture of multiple ribs of left side, initial encounter 05/28/2021 Paroxysmal atrial fibrillation ([facility]) 017 Assessment & Plan (04/05/2017 3:18 PM MALE INFERTILITY SPECIALIST): Impression 1. Paroxysmal atrial fibrillation. Excellent suppression on flecainide. Will continue. PVI remains an option, particularly for drug failure 2. History of TIA. Patient compliant with anticoagulation. 3. Emphysema. Stable. 4. Hypertension. Risk factor for stroke. Patient on anticoagulation. 5. Encounter for therapeutic drug level monitoring. Satisfactory EKG on flecainide. 6. Right bundle-branch block. Chronic stable. Plan Continue meds Follow-up 1 year Immunizations Name Administration Dates Next Due Influenza, Unspecified 05/03/2021 Social History Tobacco Use Types Packs/Day Years Used Date Smoking Tobacco: Former Smokeless Tobacco: Never Tobacco Cessation:Counseling Given: Not Answered Alcohol Use Standard Drinks/Week Comments Yes 0 (1 standard drink = 0.6 oz pur e alcohol) [facility] Utilities Answer Date Recorded In the past 12 months has [employer], [employer], or water [employer] threatened to shut off services in your [...] 05/27/2024 How often do you attend chur [employer] or worship services? Never 05/27/2024 Do you belong to any clubs o r organizations such as christian groups, unions, fraternal or athletic groups, or [...] any time in the past 12 m [facility], were you homeless or living in a residential (including now)? No 05/27/2024 Personal Safety Answer Date Recorded Have you ever been in or are you currently in a harmful physical or emotional relationship or is someone making you feel afraid or unsafe? Denies 05/26/2024 Sex and Gender Information Value Date Recorded Sex Assigned at Not on file Legal Sex Male 9:27 PM MALE INFERTILITY SPECIALIST Gender Identity Not on file Sexual Orientation Not on file Last Filed Vital Signs Vital Sign Reading Time Taken Comments Blood Pressure 129/97 05/27/2024 5:00 PM MALE INFERTILITY SPECIALIST Pulse 82 05/27/2024 5:00 PM MALE INFERTILITY SPECIALIST Temperature 36.4 C (97.6 F) 05/27/2024 12:04 PM MALE INFERTILITY SPECIALIST Respiratory Rate 17 05/27/2024 5:00 PM MALE INFERTILITY SPECIALIST Oxygen Saturation 95% 05/27/2024 5:00 PM MALE INFERTILITY SPECIALIST Inhaled Oxygen Concentration - - Weight 81.6 kg (179 lb 14.3 oz) 025 12:50 AM MALE INFERTILITY SPECIALIST Height 175.3 cm (5' 9.02 ) 05/26/2024 1 2:50 AM MALE INFERTILITY SPECIALIST Body Mass Index 26.55 05/26/2024 12:50 AM MALE INFERTILITY SPECIALIST Plan of Treatment Not on file Medical Devices Implanted Type Area Clinical Dietitian Device Identifier Shelf Expiration Date Model / Serial / Lot [employer] V[employer] Device Clsr Perclose Prostyle Sut-Mediatd Closure-Repair Sys 96051-30 - [id number] Implanted:Qty: 1 on 05/19/2023 by Epifanio Burrell MD at [facility] Vascular 02/14/2025 [id number] / / [id number] [employer] Percutaneous Transcatheter Amplatzer Amulet 18mm [id number] - [id number] Implanted:Qty: 1 on 05/19/2023 by Epifanio Burrell MD at [facility] Vascular 04/16/2027 [id number] / / [id number] [employer] Vascade Mvp 6-12fr Venous Closure [id number] - [id number] Implanted:Qty: 1 on 05/19/2023 by Epifanio Burrell MD at [facility] [employer] 02/09/2025 [id number] / / [id number] Procedures Procedure Name Priority Date/Time Associated Diagnosis Comments ECG 12-LEAD STAT 05/27/2024 3:18 PM MALE INFERTILITY SPECIALIST CARDIOVERSION Routine 05/27/2024 3:09 PM MALE INFERTILITY SPECIALIST Atrial fibrillation with rapid ventricular response (CMS/HCC) (HCC) ECG 12-LEAD STAT 05/27/2024 2:20 PM MALE INFERTILITY SPECIALIST POCT GLUCOSE DEVICE Routine 05/27/2024 1 1:59 AM MALE INFERTILITY SPECIALIST POCT GLUCOSE DEVICE Routine 05/27/2024 8 :49 AM MALE INFERTILITY SPECIALIST POCT GLUCOSE DEVICE Routine 05/26/2024 9 :07 PM MALE INFERTILITY SPECIALIST POCT GLUCOSE DEVICE Routine 05/26/2024 5 :32 PM MALE INFERTILITY SPECIALIST POCT GLUCOSE DEVICE Routine 05/26/2024 1 2:58 PM MALE INFERTILITY SPECIALIST POCT GLUCOSE DEVICE Routine 05/26/2024 9 :19 AM MALE INFERTILITY SPECIALIST EGFR Routine 05/26/2024 6:16 AM MALE INFERTILITY SPECIALIST DIFFERENTIAL AUTO Routine 05/26/2024 6:1 6 AM MALE INFERTILITY SPECIALIST CREATINE KINASE (CK), TOTAL Routine 05/26/2024 6:16 AM MALE INFERTILITY SPECIALIST HEPATIC FUNCTION PANEL Routine 05/26/2024 6:16 AM MALE INFERTILITY SPECIALIST CBC WITH AUTO DIFFERENTIAL Routine 05/26/2024 6:16 AM MALE INFERTILITY SPECIALIST BASIC METABOLIC PANEL Routine 05/26/2024 6:16 AM MALE INFERTILITY SPECIALIST MAGNESIUM Routine 05/26/2024 6:16 AM MALE INFERTILITY SPECIALIST POCT GLUCOSE DEVICE Routine 05/26/2024 6 :14 AM MALE INFERTILITY SPECIALIST POCT GLUCOSE DEVICE Routine 05/26/2024 1 :11 AM MALE INFERTILITY SPECIALIST POCT GLUCOSE DEVICE Routine 05/25/2024 1 0:01 PM MALE INFERTILITY SPECIALIST POCT GLUCOSE DEVICE Routine 05/25/2024 7 :18 PM MALE INFERTILITY SPECIALIST TROPONIN T HIGH-SENSITIVITY 4-HR Timed 05/25/2024 5:51 PM MALE INFERTILITY SPECIALIST TROPONIN T HIGH-SENSITIVITY 2-HOUR Timed 05/25/2024 3:42 PM MALE INFERTILITY SPECIALIST UT CRITICAL CARE ILL/INJURED PATIENT INIT 30-74 MIN Routine 05/25/2024 1:30 PM MALE INFERTILITY SPECIALIST XR CHEST PA LATERAL 2 VIEWS ED 05/25/2024 1:23 PM MALE INFERTILITY SPECIALIST EGFR STAT 05/25/2024 1:10 PM MALE INFERTILITY SPECIALIST DIFFERENTIAL AUTO STAT 05/25/2024 1:1 0 PM MALE INFERTILITY SPECIALIST TROPONIN T HIGH-SENSITIVITY SERIES (BASELINE, 2HR, 4HR, 6HR) STAT 05/25/2024 1:10 PM MALE INFERTILITY SPECIALIST COMPREHENSIVE METABOLIC PANEL STAT 05/25/2024 1:10 PM MALE INFERTILITY SPECIALIST CBC WITH AUTO DIFFERENTIAL STAT 05/25/2024 1:10 PM MALE INFERTILITY SPECIALIST ECG 12-LEAD STAT 05/25/2024 12:51 PM MALE INFERTILITY SPECIALIST POCT LIPID PANEL Routine 03/29/2024 1:10 PM MALE INFERTILITY SPECIALIST Lipid screening HEMOGLOBIN A1C Routine 05/28/2021 7:56 PM MALE INFERTILITY SPECIALIST from Last 3 Months or Most Recently Relevant to Health Maintenance Results * CARDIOVERSION (05/27/2024 3:09 PM MALE INFERTILITY SPECIALIST) Anatomical Region Laterality Modality X-Ray Angiograph y Narrative 05/28/2024 3:31 PM MALE INFERTILITY SPECIALIST ELECTRICAL CARDIOVERSION PROCEDURE NOTE Date Of Procedure: [...] 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 Patient admitted to [facility] on 05/25/2024 with shortness breath, found to be in atrial flutter with RVR. He was referred for DC cardioversion. Patient is status post left atrial appendage closure, and has been on antiplatelet treatment. Benefits, risks and alternatives discussed with the patient and informed consent was taken prior to the procedure. Principal Record Systems Analyst: Epifanio Burrell MD Procedures performed: Successful synchronized DC cardioversion with mosque of sinus rhythm. Moderate sedation (CPT 71528). Moderate sedation: Midazolam 2 mg, fentanyl 50 mcg Face to Face Conscious Sedation Time: Start 1504 hrs, Stop 1510 hrs; total [id number] time 6, trained observer Mayers RN Description of Procedure: The patient was placed in the supine position. Transcutaneous pads were placed in right parasternal and left paravetbral locations. Once adequately sedated, synchronized cardioversion was performed using 200 joule shock with mosque of sinus rhythm. There were no immediate procedural complications. Conclusions: Successful synchronized DC cardioversion with mosque of sinus rhythm. Plan/recommendations: Continue current medical regimen including diltiazem and flecainide. Patient is status post left atrial appendage closure device and has been on antiplatelet treatment. Outpatient electrophysiology evaluation for consideration for radiofrequency ablation. Message sent to office who will assist with electrophysiology appointment. Voice recognition software was used to complete this document, therefore, gas station attendant variances may occur. Epifanio Burrell MD, [facility] 05/27/2024 Raya Lentz MD CV ELECTROPHYSIOLOGY PROCS Final Result * ECG 12 lead (05/27/2024 2:20 PM MALE INFERTILITY SPECIALIST) 05/27/2024 2:20 PM MALE INFERTILITY SPECIALIST Narrative [facility] - 05/27/2024 3:19 PM MALE INFERTILITY SPECIALIST Vent Rate: 111 bpm RR Interval: 540 msec UT Interval: 0 msec QRS Duration: 152 msec QT Interval: 377 msec QTC Interval: 442 msec P-R-T [place]: 0 - 221 - 26 degrees IMPRESSION: ATRIAL FLUTTER/TACHYCARDIA WITH RAPID VENTRICULAR RESPONSE RIGHT AXIS DEVIATION [QRS AXIS > 100] RIGHT BUNDLE BRANCH BLOCK [120+ ms QRS DURATION, UPRIGHT V1, 40+ ms S IN I/aVL/V4/V5/V6] SEPTAL MYOCARDIAL INFARCTION , OF INDETERMINATE AGE [40+ ms Q WAVE IN V1/V2] Old inferior WA ABNORMAL ECG No significant change since previous tracing Electronically Signed By: Kasi Patten MD, [facility] Epifanio Burrell MD ECG ORDERABLES Final Result Performing Organization Address [facility] Co de Phone Number [facility] * POCT glucose (05/27/2024 11:59 AM MALE INFERTILITY SPECIALIST) Glucose, POC 110 70 - 199 mg/dL Blood 05/27/2024 11:5 9 AM MALE INFERTILITY SPECIALIST 05/27/2024 11:59 AM MALE INFERTILITY SPECIALIST Too Roland MD LAB POCT ORDERABLES - DEVICE Final Result Performing Organization Address [facility] de Phone Number [facility] [address] [address] [place] [address] * POCT glucose (05/27/2024 8:49 AM MALE INFERTILITY SPECIALIST) Glucose, POC 111 70 - 199 mg/dL Blood 05/27/2024 8:49 AM MALE INFERTILITY SPECIALIST 05/27/2024 8:49 AM MALE INFERTILITY SPECIALIST Too Roland MD LAB POCT ORDERABLES - DEVICE Final Result Performing Organization Address [facility] de Phone [place] [address] [address] Department [place] [address] * POCT glucose (05/26/2024 9:07 PM MALE INFERTILITY SPECIALIST) Glucose, POC 157 70 - 199 mg/dL Blood 05/26/2024 9:07 PM MALE INFERTILITY SPECIALIST 05/26/2024 9:07 PM MALE INFERTILITY SPECIALIST [facility] POCT ORDERABLES - JAKE CE Final Result Performing Organization Address [facility]/State/ZIP Co de Phone Number JERALD [place]T [address] [address] [facility] [place] [address] * POCT glucose (05/26/2024 5:32 PM MALE INFERTILITY SPECIALIST) Glucose, POC 117 70 - 199 mg/dL Blood 05/26/2024 5:32 PM MALE INFERTILITY SPECIALIST 05/26/2024 5:32 PM MALE INFERTILITY SPECIALIST [facility] POCT ORDERABLES - JAKE CE Final Result Performing Organization Address [facility] Co de Phone Number [place]ERALD [place] [address] [address] [facility] [place] [address] * POCT glucose (05/26/2024 12:58 PM MALE INFERTILITY SPECIALIST) Glucose, POC 116 70 - 199 mg/dL Blood 05/26/2024 12:5 8 PM MALE INFERTILITY SPECIALIST 05/26/2024 12:58 PM MALE INFERTILITY SPECIALIST [facility] POCT ORDERABLES - JAKE CE Final Result Performing Organization Address [facility]/ZIP Co de Phone Number JER[place] [address] [address] [facility] [place] [address] * (ABNORMAL) POCT glucose (05/26/2024 9:19 AM MALE INFERTILITY SPECIALIST) Glucose, POC 233(H) 70 - 199 mg/dL Blood 05/26/2024 9:19 AM MALE INFERTILITY SPECIALIST 05/26/2024 9:19 AM MALE INFERTILITY SPECIALIST [facility] POCT ORDERABLES - JAKE CE Final Result Performing Organization Address City/[facility]/ZIP Co de Phone Number JERALD [place]T [address] [address] [facility] [place] [address] * eGFR (05/26/2024 6:16 AM MALE INFERTILITY SPECIALIST) eGFR 76 >=60 mL/min/1. 73 m2 Comment: [...] last reviewed 2021. Blood 05/26/2024 6:16 AM MALE INFERTILITY SPECIALIST 05/26/2024 6:46 AM MALE INFERTILITY SPECIALIST us Klarissa Louise NP LAB BLOOD ORDERABLES Final Res ult [facility] [address] [address] Department [place] [address] * Differential, auto (05/26/2024 6:16 AM MALE INFERTILITY SPECIALIST) Pathologist [facility] Neutrophil abs 4.4 1.5 - 6.5 K/cumm Imm gran abs 0.1 0.0 - 0.1 K/cumm [facility] Lymphocyte abs 1.9 0.8 - 3.3 K/cumm [facility] Monocyte abs 0.8 0.2 - 0.8 K/cumm [facility] Eosinophil abs 0.2 0.0 - 0.5 K/cumm [facility] Basophil abs 0.0 0.0 - 0.1 K/cumm [facility] Neutrophil pct 59.6 % [facility] Comment: Interpretive Data Percent cell count reference ranges are not reported, since discordance with absolute values may lead to misinterpretation of CBC data. Current Interpretive Data was last revised on 2017. Imm gran pct 0.7 % [facility] Comment: Interpretive Data Percent cell count [...] revised on 2017. Monocyte pct 11.1 % [facility] Comment: Interpretive Data Percent cell count [...] revised on 2017. Basophil pct 0.4 % [facility] Comment: Interpretive Data Percent cell count reference ranges are not reported, since discordance with absolute values may lead to misinterpretation of CBC data. Current Interpretive Data was last revised on 2017. Blood 05/26/2024 6:16 AM MALE INFERTILITY SPECIALIST 05/26/2024 6:19 AM MALE INFERTILITY SPECIALIST us Klarissa Louise APPLE PACKING HEADER LAB BLOOD ORDERABLES Final Res ult [facility] [address] [address] Department [place] [address] * (ABNORMAL) CBC with auto differential (05/26/2024 6:16 AM MALE INFERTILITY SPECIALIST) WBC 7.5 3.8 - 9.9 K/cumm Hgb 15.1 13.0 - 17.5 g/dL [facility] Hct 47.0 38.9 - 50.3 % [facility] Plt 161 150 - 400 K/cumm [facility] MPV 9.8 9.1 - 12.3 fL [facility] RBC 4.92 4.30 - 5.80 M/cumm [facility] MCV 95.5 81.3 - 96.4 fL [facility] MCH 30.7 27.1 - 33.3 pg [facility] MCHC 32.1(L) 32.3 - 35.7 g/dL [facility] RDW CV 12.4 11.1 - 14.9 % [facility] RDW SD 43.3 35.7 - 48.1 fL [facility] NRBC abs 0.00 0.00 - 0.01 K/cumm [facility] Blood 05/26/2024 6:16 AM MALE INFERTILITY SPECIALIST 05/26/2024 6:19 AM MALE INFERTILITY SPECIALIST Klarissa Louise APPLE PACKING HEADER LAB BLOOD ORDERABLES Final Res ult Performing Organization Address [facility] Co de Phone Number [facility] [address] [address] [facility] [place] [address] * Magnesium (05/26/2024 6:16 AM MALE INFERTILITY SPECIALIST) Magnesium 2.0 1.4 - 2.5 mg/dL Blood 05/26/2024 6:16 AM MALE INFERTILITY SPECIALIST 05/26/2024 6:19 AM MALE INFERTILITY SPECIALIST Klarissa Louise APPLE PACKING HEADER LAB BLOOD ORDERABLES Final Res ult Performing Organization Address [facility] de Phone Number [facility] [address] [address] [facility] [place] [address] * Creatine kinase (CK), total (05/26/2024 6:16 AM MALE INFERTILITY SPECIALIST) CK 52 40 - 300 Units/L Blood 05/26/2024 6:16 AM MALE INFERTILITY SPECIALIST 05/26/2024 6:19 AM MALE INFERTILITY SPECIALIST Mariam Brown MD LAB BLOOD ORDERABLE S Final Result Performing Organization Address [facility] de Phone Number [facility] [address] [address] [facility] [place] [address] * (ABNORMAL) Hepatic function panel (05/26/2024 6:16 AM MALE INFERTILITY SPECIALIST) Bilirubin, total 0.4 0.1 - 1.2 mg/dL Bilirubin, direct 0.1 0.1 - 0.3 mg/dL [facility] Protein, pl 6.2(L) 6.5 - 8.5 g/dL [facility] Albumin 3.6 3.5 - 5.0 g/dL [facility] Alk phos 82 40 - 130 Units/L [facility] ALT 47 7 - 55 Units/L [facility] AST 26 10 - 50 Units/L [facility] Blood 05/26/2024 6:16 AM MALE INFERTILITY SPECIALIST 05/26/2024 6:19 AM MALE INFERTILITY SPECIALIST us Mariam Brown MD LAB BLOOD ORDERABLE S Final Result [facility] [address] [address] Department [place] [address] * Basic metabolic panel (05/26/2024 6:16 AM MALE INFERTILITY SPECIALIST) Pathologist [facility] Sodium 138 135 - 145 mmol/L Potassium, [...] mg/dL [facility] Blood 05/26/2024 6:16 AM MALE INFERTILITY SPECIALIST 05/26/2024 6:19 AM MALE INFERTILITY SPECIALIST us Klarissa Louise NP LAB BLOOD ORDERABLES Final Res ult Performing Organization Address City/[facility]/ZIP Co de Phone Number [place]ALD [place] [phone] [address] [facility] [place] [address] * POCT glucose (05/26/2024 6:14 AM MALE INFERTILITY SPECIALIST) Glucose, POC 128 70 - 199 mg/dL Blood 05/26/2024 6:14 AM MALE INFERTILITY SPECIALIST 05/26/2024 6:14 AM MALE INFERTILITY SPECIALIST us Mariam Brown MD LAB POCT ORDERABLES - DEVICE Final Result Performing Organization Address [facility] Co de Phone Number JERAL[place] [address] [address] [facility] [place] [address] * POCT glucose (05/26/2024 1:11 AM MALE INFERTILITY SPECIALIST) Glucose, POC 139 70 - 199 mg/dL Blood 05/26/2024 1:11 AM MALE INFERTILITY SPECIALIST 05/26/2024 1:11 AM MALE INFERTILITY SPECIALIST us Mariam Brown MD LAB POCT ORDERABLES - DEVICE Final Result Performing Organization Address [facility] Co de Phone Number ANNADORIS [place]ACK[place]T [address] [address] [facility] [place] [address] * POCT glucose (05/25/2024 10:01 PM MALE INFERTILITY SPECIALIST) Glucose, POC 192 70 - 199 mg/dL Blood 05/25/2024 10:0 1 PM MALE INFERTILITY SPECIALIST 05/25/2024 10:01 PM MALE INFERTILITY SPECIALIST us Mariam Brown MD LAB POCT ORDERABLES - DEVICE Final Result Performing Organization Address [facility] Co de Phone Number JERALD [place] [address] [address] Department [place] [address] * (ABNORMAL) POCT glucose (05/25/2024 7:18 PM MALE INFERTILITY SPECIALIST) Glucose, POC 204(H) 70 - 199 mg/dL Blood 05/25/2024 7:18 PM MALE INFERTILITY SPECIALIST 05/25/2024 7:18 PM MALE INFERTILITY SPECIALIST Mariam Brown MD LAB POCT ORDERABLES - DEVICE Final Result Performing Organization Address [facility] Co de Phone Number JERALD [address] [address] [place] [address] * (ABNORMAL) Troponin T high-sensitivity 4-hour (05/25/2024 5:51 PM MALE INFERTILITY SPECIALIST) Pathologist [facility] Trop T hs 33(H) <=22 ng/L Comment: Interpretive Data For further hscTnT resources including the diagnostic algorithm and an aid in interpretation, copy and paste this link: https://[email or web address]-[email or web address]/show/hsTrop Current Interpretive Data last revised 2020. Trop T hs delta 2 ng/L [facility] Trop T hs interp Insignificant [facility] Blood 05/25/2024 5:51 PM MALE INFERTILITY SPECIALIST 05/25/2024 5:51 PM MALE INFERTILITY SPECIALIST Heron Faith DO LAB BLOOD ORDERABLES Final Res ult Performing Organization Address [facility]/ZIP Co de Phone Number JERALD [place] [address] [address] [facility] [place] [address] * (ABNORMAL) Troponin T high-sensitivity 2-hour (05/25/2024 3:42 PM MALE INFERTILITY SPECIALIST) Trop T hs 31(H) <=22 ng/L Comment: Interpretive Data For further hscTnT resources including the diagnostic algorithm and an aid in interpretation, copy and paste this link: https://[email or web address].com.org/show/hsTrop Current Interpretive Data last revised 2020. Trop T hs delta 0 ng/L [facility] Trop T hs interp Insignificant [facility] Blood 05/25/2024 3:42 PM MALE INFERTILITY SPECIALIST 05/25/2024 3:42 PM MALE INFERTILITY SPECIALIST Heron Faith DO LAB BLOOD ORDERABLES Final Res ult [place]D [address] [address] Department [place] [address] * [place] CRITICAL CARE ILL/INJURED PATIENT INIT 30-74 MIN (05/25/2024 1:30 PM MALE INFERTILITY SPECIALIST) Narrative Reina Drake MD - 05/25/2024 1:30 PM MALE INFERTILITY SPECIALIST Reina Drake MD 05/25/2024 9:28 PM Critical [...] patient to a continuous cardiac monitored bed. Reina Drake MD IN CLINIC/BEDSIDE ORDER KIMBERLY Final Result * XR Chest PA Lateral 2 Views (05/25/2024 1:23 PM MALE INFERTILITY SPECIALIST) Anatomical Region Laterality Modality Body, Chest N/A Computed Radiogr aphy 05/25/2024 1:44 PM MALE INFERTILITY SPECIALIST Impressions 05/25/2024 1:44 PM MALE INFERTILITY SPECIALIST 1. No evidence of active cardiopulmonary disease. 2. Left atrial appendage closure device. 3. No change from previous. Electronically signed by: Rito Scott M.D. Narrative 05/25/2024 1:44 PM MALE INFERTILITY SPECIALIST EXAMINATION: XR CHEST PA LATERAL 2 VIEWS [...] (baseline, 2hr, 4hr, 6hr) (05/25/2024 1:10 PM MALE INFERTILITY SPECIALIST) Trop T hs 31(H) <=22 ng/L Comment: Interpretive Data For further hscTnT resources including the diagnostic algorithm and an aid in interpretation, copy and paste this link: https://nrl.testcatalog.org/show/hsTrop Current Interpretive Data last revised 2020. Blood 05/25/2024 1:10 PM MALE INFERTILITY SPECIALIST 05/25/2024 1:18 PM MALE INFERTILITY SPECIALIST Reina Drake MD LAB BLOOD ORDERABLES Ed ited Result - Final [address] [address] [address] Department [place] [address] * eGFR (05/25/2024 1:10 PM MALE INFERTILITY SPECIALIST) Pathologist [facility] eGFR 79 >=60 mL/min/1. 73 m2 Comment: [...] last reviewed 2021. Blood 05/25/2024 1:10 PM MALE INFERTILITY SPECIALIST 05/25/2024 1:18 PM MALE INFERTILITY SPECIALIST us Heron Faith DO LAB BLOOD ORDERABLES Final Res ult [facility] [id number] Department [place] [address] * Differential, auto (05/25/2024 1:10 PM MALE INFERTILITY SPECIALIST) Pathologist [facility] Neutrophil abs 4.6 1.5 - 6.5 K/cumm Imm gran abs 0.0 0.0 - 0.1 K/cumm [facility] Lymphocyte abs 1.6 0.8 - 3.3 K/cumm [facility] Monocyte abs 0.7 0.2 - 0.8 K/cumm [facility] Eosinophil abs 0.2 0.0 - 0.5 K/cumm [facility] Basophil abs 0.0 0.0 - 0.1 K/cumm [facility] Neutrophil pct 64.0 % [facility] Comment: Interpretive Data Percent cell count reference ranges are not reported, since discordance with absolute values may lead to misinterpretation of CBC data. Current Interpretive Data was last revised on 2017. Imm gran pct 0.6 % [facility] Comment: Interpretive Data Percent cell count reference ranges are not reported, since discordance with absolute values may lead to misinterpretation of CBC data. Current Interpretive Data was last revised on 2017. Lymphocyte pct 22.9 % [facility] Comment: Interpretive Data Percent cell count reference ranges are not reported, since discordance with absolute values may lead to misinterpretation of CBC data. Current Interpretive Data was last revised on 2017. Monocyte pct 9.4 % [facility] Comment: Interpretive Data Percent cell count reference ranges are not reported, since discordance with absolute values may lead to misinterpretation of CBC data. Current Interpretive Data was last revised on 2017. Eosinophil pct 2.7 % [facility] Comment: Interpretive Data Percent cell count reference ranges are not reported, since discordance with absolute values may lead to misinterpretation of CBC data. Current Interpretive Data was last revised on 2017. Basophil pct 0.4 % [facility] Comment: Interpretive Data Percent cell count reference ranges are not reported, since discordance with absolute values may lead to misinterpretation of CBC data. Current Interpretive Data was last revised on 2017. Blood 05/25/2024 1:10 PM MALE INFERTILITY SPECIALIST 05/25/2024 1:19 PM MALE INFERTILITY SPECIALIST us Heron Faith DO LAB BLOOD ORDERABLES Final Res ult [facility] [address] Department [place] [address] * (ABNORMAL) CBC with auto differential (05/25/2024 1:10 PM MALE INFERTILITY SPECIALIST) WBC 7.1 3.8 - 9.9 K/cumm Hgb 17.0 13.0 - 17.5 g/dL [facility] Hct 52.0(H) 38.9 - 50.3 % [facility] Plt 187 150 - 400 K/cumm [facility] MPV 9.7 9.1 - 12.3 fL [facility] RBC 5.46 4.30 - 5.80 M/cumm [facility] MCV 95.2 81.3 - 96.4 fL [facility] MCH 31.1 27.1 - 33.3 pg [facility] MCHC 32.7 32.3 - 35.7 g/dL [facility] RDW CV 12.1 11.1 - 14.9 % [facility] RDW SD 41.8 35.7 - 48.1 fL [facility] NRBC abs 0.00 0.00 - 0.01 K/cumm [facility] Blood (Blood, Venous) 05/25/2024 1:10 PM MALE INFERTILITY SPECIALIST 05/25/2024 1:19 PM MALE INFERTILITY SPECIALIST us Reina Drake MD LAB BLOOD ORDERABLES Fi nal Result [facility] [id number] Department [place] [address] * (ABNORMAL) Comprehensive metabolic panel (05/25/2024 1:10 PM MALE INFERTILITY SPECIALIST) Sodium 136 135 - 145 mmol/L Potassium, pl 4.5 3.3 - 4.9 mmol/L [facility] Chloride 99 97 - 110 mmol/L [facility] CO2 24 22 - 32 mmol/L [facility] Anion gap 13 2 - 15 mmol/L [facility] BUN 17 6 - 25 mg/dL [facility] Creatinine 1.02 0.80 - 1.30 mg/dL [facility] Glucose 195 70 - 199 mg/dL [facility] Comment: Interpretive Data Fasting glucose >/= [...] 2022. Calcium 9.5 8.5 - 10.3 mg/dL [facility] Bilirubin, total 0.3 0.1 - 1.2 mg/dL [facility] Protein, pl 7.7 6.5 - 8.5 g/dL [facility] Albumin 4.4 3.5 - 5.0 g/dL [facility] Alk phos 102 40 - 130 Units/L [facility] ALT 64(H) 7 - 55 Units/L [facility] AST 42 10 - 50 Units/L [facility] Blood 05/25/2024 1:10 PM MALE INFERTILITY SPECIALIST 05/25/2024 1:18 PM MALE INFERTILITY SPECIALIST Reina Drake MD LAB BLOOD ORDERABLES Fi nal Result Performing Organization Address City/[facility] Co de Phone Number [facility] [address] Department [place] [address] * ECG 12 lead (05/25/2024 12:51 PM MALE INFERTILITY SPECIALIST) 05/25/2024 12:5 1 PM MALE INFERTILITY SPECIALIST Narrative [facility] - 05/26/2024 9:22 PM MALE INFERTILITY SPECIALIST Vent Rate: 116 bpm RR Interval: 515 msec UT Interval: 0 msec QRS Duration: 173 msec QT Interval: 377 msec QTC Interval: 446 msec P-R-T [place]: 0 - 250 - 27 degrees IMPRESSION: [...] Drake MD ECG ORDERABLES Final R esult Performing Organization Address City/[facility]/ZIP Co de Phone Number [facility] [email or web address] [facility] * POCT lipid panel (03/29/2024 1:10 PM MALE INFERTILITY SPECIALIST) Cholesterol, POC 160 mg/dL HDL, POC 43 mg/dL Triglycerides, POC 301 mg/dL LDL Cholesterol POC 56 mg/dL Chol/HDL Ratio, POC 3.7 Non-HDL Cholesterol, POC 116 mg/dL Cholesterol Total, POC 160 mg/dL Capillary blood 03/29/2024 1 :10 PM MALE INFERTILITY SPECIALIST Epifanio Burrell MD POINT OF CARE TEST ORDERABLES Fi nal Result * (ABNORMAL) Hemoglobin A1c (05/28/2021 7:56 PM MALE INFERTILITY SPECIALIST) Hgb A1C 8.4(H) 4.0 - 5.6 % [facility] Estimated Average Glucose 194 mg/dL [facility] Comment: The ADA recommends reporting an estimated Average Glucose (eAG) with all Hemoglobin A1c results using the equation derived from a study of 507 normal and diabetic adults. Minority populations were underrepresented and children were not included. (Diabetes Care 2020; 43(S1): S66-S76). The eAG is not equivalent to a fasting glucose. Blood 05/28/2021 7:56 PM MALE INFERTILITY SPECIALIST 05/28/2021 8:19 PM MALE INFERTILITY SPECIALIST Noah Barbosa MD LAB BLOOD ORDERABLES Meghan baxter Result [facility] Department [place] [address] from Last 3 Months or Most Recently Relevant to Health Maintenance Insurance [facility] CLAIMS MEDICARE MEDICARE FOR [facility] MEDICARE FOR LIFE Advance Directives For more information, please contact: [phone] * Full Code (Latest Code Status on File) Date Activated Date Inactivated Comments 05/25/2024 5:14 PM 05/27/2024 9:53 PM * Full Code Date Activated Date Inactivated Comments 05/28/2021 2:50 PM 05/31/2021 5:21 PM Care Teams Mold Maker Relationship Specialty Start Date End Date Moody Calle MD PCP - General 07/15/16 Miscellaneous, Not In File 06/21/21
--- OUTSIDE RECORDS SUMMARY | 2024-05-30 10:20 | XMS_ITS | Encounter Summary ---
Author Organization [facility] Address [address] [place] [id number] Care Team Providers Care Watcher Lookout Tower Name Role Phone Moody Calle MD Primary Care Provider + [phone] Miscellaneous, Not In File Unavailable Unava ilable Encounter Details Date Type Department Care Team (Late st Contact Info) Description 08/29/2016 Orders Only [facility] ProviderNed MD [address] [place] [id number] Social History Tobacco Use Types Packs/Day Years Used Date Smoking Tobacco: Former Alcohol Use Standard Drinks/Week Comments Yes 0 (1 standard drink = 0.6 oz pur e alcohol) Sex and Gender Information Value Date Recorded Sex Assigned at Not on file 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 Historical Provider [facility] Final Result documented in this encounter Visit Diagnoses Not on filedocumented in this encounter Additional Health Concerns Infection Onset Date Last Indicated Resolved Time COVID: Suspected 05/28/2021 05/28/2021 05/28/2021 10:28 AM STAGE BUILDER documented as of this encounter Care Teams Watcher Lookout Tower Relationship Specialty Start Date End Date Moody Calle MD PCP - General 07/15/16 Miscellaneous, Not In File 06/21/21 documented as of this encounter
--- OUTSIDE RECORDS SUMMARY | 2024-05-30 10:20 | XMS_ITS | Encounter Summary ---
Author Organization [facility] Address [address] [place] [address] Care Team Providers Care Warehouse Logistics Manager Name Role Phone Moody Calle MD Primary Care Provider + [phone] Moody Calle MD Primary Care Provider + [phone] Miscellaneous, Not In File Unavailable Unava ilable Encounter Details Date Type Department Care Team (Late st Contact Info) Description 06/09/2016 Orders Only [facility] ProviderNed MD [address] [place] [id number] Social History Tobacco Use Types Packs/Day Years Used Date Smoking Tobacco: Former Alcohol Use Standard Drinks/Week Comments No 0 (1 standard drink = 0.6 oz pur e alcohol) Sex and Gender Information Value Date Recorded Sex Assigned at Not on file 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 Historical Provider [facility] Final Result * CARDIOLOGY REPORT (06/09/2016) Anatomical Region Laterality Modality Other Narrative 06/09/2016 Ordered by an unspecified provider. us Historical Provider [facility] Final Result documented in this encounter Visit Diagnoses Not on filedocumented in this encounter Additional Health Concerns Infection Onset Date Last Indicated Resolved Time COVID: Suspected 05/28/2021 05/28/2021 05/28/2021 10:28 AM BENCH CARPENTER documented as of this encounter Care Teams Warehouse Logistics Manager Relationship Specialty Start Date End Date Moody Calle MD PCP - General 07/15/16 Moody Calle MD PCP - General 07/16/14 07/14/16 Miscellaneous, Not In File 06/21/21 documented as of this encounter
[2024-05-30 19:33] LABS: Cholesterol 181 mg/dL (0-200); HDL Direct 41 mg/dL; Triglycerides 163 mg/dL (<150)
[2024-05-30 19:44] LABS: LDL Cholesterol Direct 121 mg/dL
[2024-05-30 20:03] LABS: Prostate Specific Antigen 0.8 ng/mL (< OR = 4.0)
[2024-05-30 20:21] LABS: Creatinine Urine 185.3 mg/dL
[2024-05-30 20:25] LABS: MALB Creatinine Ratio 5.5 mg/g (0-30); Microalbumin Urine Random 10.1 mg/L (0-16.7)
== END 2024-05-30 09:57 | disposition home or self-care (01) ==
PROVIDERS: PCP Family Medicine; Visit Provider Nurse Practitioner Adult Health
DX: I48.20 Chronic atrial fibrillation, unspecified (principal); I10 Essential (primary) hypertension; E78.2 Mixed hyperlipidemia; E11.9 Type 2 diabetes mellitus without complications; Z13.220 Encounter for screening for lipoid disorders; Z12.5 Encounter for screening for malignant neoplasm of prostate
CPT/HCPCS: 36415; 80061; 82043; 84153; G0103